=== PATIENT | male | born 1960 | race African-American/Black ===

== ENCOUNTER 2016-09-05 11:41 | Inpatient (IN) | payer OTHER ==
[2016-09-05 12:19] VITALS: BMI 31.3
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
[2016-09-05] MEDS ORDERED: MAG HYDROX/AL HYDROX/SIMETH 30 ML UNIT-DOSE CUP PO PRN (15:39)
[2016-09-05] MEDS ORDERED: MAGNESIUM CITRATE 300 ML BOTTLE PO PRN (15:39)
[2016-09-05] MEDS ORDERED: LOPERAMIDE HCL 2 MG CAPSULE PO PRN (15:39)
[2016-09-05] MEDS ORDERED: hydrOXYzine PAMOATE 25 MG CAPSULE (FP) PO PRN (15:39)
[2016-09-05] MEDS ORDERED: MENTHOL/PHENOL 1 EACH UD MM PRN (15:39)
[2016-09-05] MEDS ORDERED: ACETAMINOPHEN 325 MG TABLET (FP) PO PRN (15:39)
[2016-09-05] MEDS ORDERED: guaiFENesin/D-METHORPHAN HB 10 ML UNIT-DOSE CUPS PO PRN (15:39)
[2016-09-05] MEDS ORDERED: MAGNESIUM HYDROX 2400MG/30ML ORAL SUSPENSION 30 ML CUP PO PRN (15:39)
[2016-09-05] MEDS ORDERED: P-EPHED 60MG/TRIPROLIDI 2.5MG TABLET PO PRN (15:39)
[2016-09-05] MEDS ORDERED: diphenhydrAMINE HCL 50 MG CAPSULE PO PRN (15:39)
[2016-09-05] MEDS ORDERED: IBUPROFEN 400 MG TABLET (FP) PO PRN (15:39)
[2016-09-05] MEDS ORDERED: chlordiazePOXIDE HCL 25 MG CAPSULE PO PRN (15:39)
[2016-09-05] MEDS ORDERED: SUMAtriptan SUCCINATE 50 MG TABLET PO PRN (15:43)
[2016-09-05] MEDS: chlordiazePOXIDE HCL 25 MG CAPSULE PO SCH ×2 (17:56→22:10)
[2016-09-05 20:05] LABS: URINE APPEARANCE CLEAR; URINE BILIRUBIN NEGATIVE (NEGATIVE); URINE BLOOD NEGATIVE (NEGATIVE); URINE COLOR YELLOW; URINE GLUCOSE (UA) NEGATIVE (NEGATIVE); URINE KETONE NEGATIVE (NEGATIVE); URINE LEUK ESTERASE NEGATIVE (NEGATIVE); URINE NITRITE NEGATIVE (NEGATIVE); URINE PROTEIN NEGATIVE (NEGATIVE); URINE UROBILINOGEN 4.0 E.U/dl E.U./dl (0.2-1.0)
[2016-09-05] MEDS: THIAMINE HCL 100 MG TABLET (FP) PO SCH (22:10)
[2016-09-06] MEDS: chlordiazePOXIDE HCL 25 MG CAPSULE PO SCH ×4 (04:40→22:12)
--- NOTE | 2016-09-06 09:21 | PN ---
S CIWA - CIWA Score Nausea/Vomitin Muscle Tremors: 3 Anxiety: 3 Agitation: 2 Paroxysmal Sweats: 1-Minimal Palms Moist Orientation: 0-Oriented Tacttile Disturbances: 1-Very Mild Itch/Numbness Auditory Disturbances: 1-Very Mild Visual Disturbances: 1-Very Mild Sensitivity Headache: 2-Mild CIWA-Ar Total Score: 17 BHS Progress Note (SOAP) Subjective: ALERT,IRRITABLE,ANXIOUS,INTERRUPTED SLEEP,TREMOR Objective: 09/06/16 09:18 Vital Signs Temperature 97.5 F L 09/06/16 05:59 Pulse Rate 55 L 09/06/16 05:59 Respiratory Rate 16 09/06/16 05:59 Blood Pressure 99/60 09/06/16 05:59 O2 Sat by Pulse Oximetry (%) EKG SINUS BRADYCARDIA 50/MIN,INVERTE T IN 3,AVF,V2 TO V6 NO CHEST PAIN,NO SOB,NO DIZZINESS 09/06/16 09:20 Laboratory Last Values Urine Color Yellow 09/05/16 19:30 Urine Appearance Clear 09/05/16 19:30 Urine pH 6.0 (5.0-8.0) 09/05/16 19:30 Ur Specific [place] 1.030 (1.001-1.035) 09/05/16 19:30 Urine Protein Negative (NEGATIVE) 09/05/16 19:30 Urine Glucose (UA) Negative (NEGATIVE) 09/05/16 19:30 Urine Ketones Negative (NEGATIVE) 09/05/16 19:30 Urine Blood Negative (NEGATIVE) 09/05/16 19:30 Urine Nitrite Negative (NEGATIVE) 09/05/16 19:30 Urine Bilirubin Negative (NEGATIVE) 09/05/16 19:30 Urine Urobilinogen 4.0 e.u/dl E.U./dl (0.2-1.0) 09/05/16 19:30 Ur Leukocyte Esterase Negative (NEGATIVE) 09/05/16 19:30 LABS PENDING Assessment: 09/06/16 09:20 WITHDRAWAL SYMPTOM Plan: CONTINUE DETOX
[2016-09-06] MEDS: PRENATAL VITAMINS W/ FOLIC ACID TABLET (FP) PO SCH (10:14)
--- NOTE | 2016-09-06 11:27 | EKG ---
Test Reason : Blood Pressure : / mmHG Vent. Rate : 048 BPM Atrial Rate : 048 BPM P-R Int : 172 ms QRS Dur : 094 ms QT Int : 460 ms P-R-T Axes : 058 -09 -32 degrees QTc Int : 410 ms SINUS BRADYCARDIA SEPTAL INFARCT , AGE UNDETERMINED T WAVE ABNORMALITY, CONSIDER ANTEROLATERAL ISCHEMIA ABNORMAL ECG NO PREVIOUS ECGS AVAILABLE Confirmed by DENIS MCBRIDE MD ([id number]) on 09/06/2016 11:26:53 AM Referred By: Confirmed By:DENIS MCBRIDE MD
[2016-09-06 11:30] LABS: MCH 26.3 pg (25.7-33.7); MCHC 32.1 g/dl (32.0-35.9); RDW 14.2 % (11.9-15.9); WHITE BLOOD COUNT 6.8 K/mm3 (4.0-10.0)
[2016-09-06 11:51] LABS: ALBUMIN 3.6 g/dl (3.4-5.0); ALK PHOS 115 U/L (45-117); ANION GAP 8 (8-16); BILIRUBIN,TOTAL 0.2 mg/dL (0.2-1.0); CALCIUM 8.4 mg/dL (8.5-10.1); CO2 29 mmol/L (21-32); COCKROFT - GAULT 102.6; CREATININE 1.1 mg/dL (0.7-1.3); GLUCOSE,RANDOM 60 mg/dL (74-106); SGOT/AST 10 U/L (15-37); SGPT/ALT 15 U/L (12-78); TOT PROT 7.5 g/dl (6.4-8.2)
[2016-09-06 11:54] LABS: PLATELET COMMENT2 NO CLOTTING DETECTED; PLATELET ESTIMATE ADEQUATE (NORMAL)
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
[2016-09-06] MEDS: ARIPiprazole 10 MG TABLET PO SCH (22:11)
[2016-09-06] MEDS: DIVALPROEX SODIUM 250 MG TABLET E.C. (FP) PO SCH (22:12)
[2016-09-06] MEDS: THIAMINE HCL 100 MG TABLET (FP) PO SCH (22:12)
[2016-09-06] MEDS: ZOLPIDEM TARTRATE 10 MG TABLET (PARK CARE ONLY) PO PRN (22:12)
[2016-09-07] MEDS: chlordiazePOXIDE HCL 25 MG CAPSULE PO SCH ×2 (05:24→10:32)
[2016-09-07] MEDS: PRENATAL VITAMINS W/ FOLIC ACID TABLET (FP) PO SCH (10:32)
[2016-09-07] MEDS: ESCITALOPRAM OXALATE 10 MG TABLET (FP) PO SCH (10:32)
[2016-09-07] MEDS: DIVALPROEX SODIUM 250 MG TABLET E.C. (FP) PO SCH ×2 (10:32→22:05)
--- NOTE | 2016-09-07 14:01 | PN ---
[facility] CIWA - CIWA Score Nausea/Vomitin-Mild Nausea/No Vomiting Muscle Tremors: 4-Moderate,w/Arms Extend Anxiety: 2 Agitation: 2 Paroxysmal Sweats: 1-Minimal Palms Moist Orientation: 1-Uncertain about Date Tacttile Disturbances: 0-None Auditory Disturbances: 1-Very Mild Visual Disturbances: 2-Mild Sensitivity Headache: 3-Moderate CIWA-Ar Total Score: 17 S Progress Note (SOAP) Subjective: Interrupted Sleep, Tremors, Body Aches, H/A. Objective: PT. A & O X 2 (DISORIENTED ABOUT DAY / DATE). 09/07/16 13:59 Vital Signs Temperature 97.5 F L 09/07/16 10:16 Pulse Rate 61 09/07/16 10:16 Respiratory Rate 18 09/07/16 10:16 Blood Pressure 135/83 09/07/16 10:16 O2 Sat by Pulse Oximetry (%) Laboratory Last Values WBC 6.8 K/mm3 (4.0-10.0) 09/06/16 06:00 RBC 4.94 M/mm3 (4.00-5.60) 09/06/16 06:00 Hgb 13.0 GM/dL (11.7-16.9) 09/06/16 06:00 Hct 40.5 % (35.4-49) 09/06/16 06:00 MCV 82.0 fl (80-96) 09/06/16 06:00 MCHC 32.1 g/dl (32.0-35.9) 09/06/16 06:00 RDW 14.2 % (11.9-15.9) 09/06/16 06:00 Plt Count No Result Required. 09/06/16 06:00 MPV 9.0 fl (7.5-11.1) 09/06/16 06:00 Platelet Estimate Adequate (NORMAL) 09/06/16 06:00 Platelet Comment Marked plt clumping 09/06/16 06:00 Platelet Comment No clotting detected 09/06/16 06:00 Sodium 140 mmol/L (136-145) 09/06/16 06:00 Potassium 4.4 mmol/L (3.5-5.1) 09/06/16 06:00 Chloride 103 mmol/L (98-107) 09/06/16 06:00 Carbon Dioxide 29 mmol/L (21-32) 09/06/16 06:00 Anion Gap 8 (8-16) 09/06/16 06:00 BUN 15 mg/dL (7-18) D 09/06/16 06:00 Creatinine 1.1 mg/dL (0.7-1.3) 09/06/16 06:00 Creat Clearance w eGFR > 60 (>60) 09/06/16 06:00 Random Glucose 60 mg/dL (74-106) L D 09/06/16 06:00 Calcium 8.4 mg/dL (8.5-10.1) L 09/06/16 06:00 Total Bilirubin 0.2 mg/dL (0.2-1.0) 09/06/16 06:00 AST 10 U/L (15-37) L D 09/06/16 06:00 ALT 15 U/L (12-78) 09/06/16 06:00 Alkaline Phosphatase 115 U/L (45-117) D 09/06/16 06:00 Total Protein 7.5 g/dl (6.4-8.2) D 09/06/16 06:00 Albumin 3.6 g/dl (3.4-5.0) 09/06/16 06:00 Urine Color Yellow 09/05/16 19:30 Urine Appearance Clear 09/05/16 19:30 Urine pH 6.0 (5.0-8.0) 09/05/16 19:30 Ur Specific [place] 1.030 (1.001-1.035) 09/05/16 19:30 Urine Protein Negative (NEGATIVE) 09/05/16 19:30 Urine Glucose (UA) Negative (NEGATIVE) 09/05/16 19:30 Urine Ketones Negative (NEGATIVE) 09/05/16 19:30 Urine Blood Negative (NEGATIVE) 09/05/16 19:30 Urine Nitrite Negative (NEGATIVE) 09/05/16 19:30 Urine Bilirubin Negative (NEGATIVE) 09/05/16 19:30 Urine Urobilinogen 4.0 e.u/dl E.U./dl (0.2-1.0) 09/05/16 19:30 Ur Leukocyte Esterase Negative (NEGATIVE) 09/05/16 19:30 RPR Titer Nonreactive (NONREACTIVE) 09/06/16 06:00 LABS NOTED. Assessment: 09/07/16 14:00 WITHDRAWAL SYMPTOMS. Plan: CONTINUE DETOX. ADVISED PATIENT TO FOLLOW-UP WITH TRACK GRINDER OPERATOR / REHAB MEDICAL PROVIDER AFTER DISCHARGE FROM DETOX FOR GENERAL MEDICAL ASSESSMENT AND FOR ABNORMAL ADMISSION LAB VALUES.
[2016-09-07] MEDS: chlordiazePOXIDE 5 MG CAPSULE PO SCH ×2 (17:29→22:05)
[2016-09-07] MEDS: ZOLPIDEM TARTRATE 10 MG TABLET (PARK CARE ONLY) PO PRN (22:05)
[2016-09-07] MEDS: THIAMINE HCL 100 MG TABLET (FP) PO SCH (22:05)
[2016-09-07] MEDS: ARIPiprazole 10 MG TABLET PO SCH (22:05)
[2016-09-08] MEDS: chlordiazePOXIDE 5 MG CAPSULE PO SCH ×2 (05:23→10:08)
[2016-09-08] MEDS: DIVALPROEX SODIUM 250 MG TABLET E.C. (FP) PO SCH ×2 (10:08→22:01)
[2016-09-08] MEDS: PRENATAL VITAMINS W/ FOLIC ACID TABLET (FP) PO SCH (10:08)
[2016-09-08] MEDS: ESCITALOPRAM OXALATE 10 MG TABLET (FP) PO SCH (10:08)
--- NOTE | 2016-09-08 13:43 | PN ---
S Progress Note (SOAP) Subjective: Anxiety,tremors,sweating,interrupted sleep Objective: 09/08/16 13:42 Vital Signs - 8 hr 09/08/16 09/08/16 06:00 09:51 Temperature 97.9 F 97.9 F Pulse Rate 60 71 Respiratory 18 16 Rate Blood Pressure 119/73 130/84 Laboratory Last Values WBC 6.8 K/mm3 (4.0-10.0) 09/06/16 06:00 RBC 4.94 M/mm3 (4.00-5.60) 09/06/16 06:00 Hgb 13.0 GM/dL (11.7-16.9) 09/06/16 06:00 Hct 40.5 % (35.4-49) 09/06/16 06:00 MCV 82.0 fl (80-96) 09/06/16 06:00 MCHC 32.1 g/dl (32.0-35.9) 09/06/16 06:00 RDW 14.2 % (11.9-15.9) 09/06/16 06:00 Plt Count No Result Required. 09/06/16 06:00 MPV 9.0 fl (7.5-11.1) 09/06/16 06:00 Platelet Estimate Adequate (NORMAL) 09/06/16 06:00 Platelet Comment Marked plt clumping 09/06/16 06:00 Platelet Comment No clotting detected 09/06/16 06:00 Sodium 140 mmol/L (136-145) 09/06/16 06:00 Potassium 4.4 mmol/L (3.5-5.1) 09/06/16 06:00 Chloride 103 mmol/L (98-107) 09/06/16 06:00 Carbon Dioxide 29 mmol/L (21-32) 09/06/16 06:00 Anion Gap 8 (8-16) 09/06/16 06:00 BUN 15 mg/dL (7-18) D 09/06/16 06:00 Creatinine 1.1 mg/dL (0.7-1.3) 09/06/16 06:00 Creat Clearance w eGFR > 60 (>60) 09/06/16 06:00 Random Glucose 60 mg/dL (74-106) L D 09/06/16 06:00 Calcium 8.4 mg/dL (8.5-10.1) L 09/06/16 06:00 Total Bilirubin 0.2 mg/dL (0.2-1.0) 09/06/16 06:00 AST 10 U/L (15-37) L D 09/06/16 06:00 ALT 15 U/L (12-78) 09/06/16 06:00 Alkaline Phosphatase 115 U/L (45-117) D 09/06/16 06:00 Total Protein 7.5 g/dl (6.4-8.2) D 09/06/16 06:00 Albumin 3.6 g/dl (3.4-5.0) 09/06/16 06:00 Urine Color Yellow 09/05/16 19:30 Urine Appearance Clear 09/05/16 19:30 Urine pH 6.0 (5.0-8.0) 09/05/16 19:30 Ur Specific [place] 1.030 (1.001-1.035) 09/05/16 19:30 Urine Protein Negative (NEGATIVE) 09/05/16 19:30 Urine Glucose (UA) Negative (NEGATIVE) 09/05/16 19:30 Urine Ketones Negative (NEGATIVE) 09/05/16 19:30 Urine Blood Negative (NEGATIVE) 09/05/16 19:30 Urine Nitrite Negative (NEGATIVE) 09/05/16 19:30 Urine Bilirubin Negative (NEGATIVE) 09/05/16 19:30 Urine Urobilinogen 4.0 e.u/dl E.U./dl (0.2-1.0) 09/05/16 19:30 Ur Leukocyte Esterase Negative (NEGATIVE) 09/05/16 19:30 Valproic Acid 25.417 ug/ml (50-100) L 09/07/16 08:20 RPR Titer Nonreactive (NONREACTIVE) 09/06/16 06:00 labs noted Assessment: 09/08/16 13:43 Withdrawal sx. Plan: Continue detox
[2016-09-08] MEDS: chlordiazePOXIDE HCL 10 MG CAPSULE PO SCH ×2 (17:49→22:01)
[2016-09-08] MEDS ORDERED: ARIPiprazole 5 MG TABLET (FP) ONE (21:12)
[2016-09-08] MEDS: THIAMINE HCL 100 MG TABLET (FP) PO SCH (22:01)
[2016-09-08] MEDS: ARIPiprazole 10 MG TABLET PO SCH (22:01)
[2016-09-09] MEDS: chlordiazePOXIDE HCL 10 MG CAPSULE PO SCH (05:39)
[2016-09-09 09:10] VITALS: BP 140/77; PULSE 67; TEMP 98.5
--- NOTE | 2016-09-09 09:32 | DS ---
[facility] Detox Discharge Summary Admission Date: 09/05/16 Discharge Date: 09/09/16 - History Present History: Alcohol Dependence, Cocaine Dependence, Pcp Dependence - Physical Exam Results Vital Signs: Vital Signs Temperature 98.5 F 09/09/16 09:09 Pulse Rate 67 09/09/16 09:09 Respiratory Rate 16 09/09/16 09:09 Blood Pressure 140/77 09/09/16 09:09 O2 Sat by Pulse Oximetry (%) - Treatment Hospital Course: Detox Protocol Followed, Detoxed Safely, Responded well, Discharged Condition Good - Medication Discharge Medications: Ambulatory Orders Lamotrigine [Lamotrigine -] 150 mg PO BID #60 tablet 04/20/15 Sumatriptan Succinate [Imitrex -] 50 mg PO BID PRN 04/20/15 Aripiprazole [Abilify -] 30 mg PO HS #30 tablet 09/22/15 - Diagnosis (1) Alcohol dependence with uncomplicated withdrawal Current Visit: Yes Status: Chronic (2) Bipolar disorder Current Visit: Yes Status: Chronic Qualifiers: Current episode severity: unspecified (3) Cocaine dependence with withdrawal Current Visit: Yes Status: Chronic (4) H/O cluster headache Current Visit: Yes Status: Chronic - AMA Did Patient Leave Against Medical Advice: No
== END 2016-09-09 09:30 | disposition home or self-care (01) | DRG 897 ==
LOC: YASAS 11:41 → Y6N 15:31
PROVIDERS: ADMIT Internal Medicine Addiction Medicine; ATTEND Internal Medicine Addiction Medicine
PROC: HZ2ZZZZ Detoxification Services for Substance Abuse Treatment (ICD-10-PCS; principal; 2016-09-05)
DX: F10.230 Alcohol dependence with withdrawal, uncomplicated (principal); F14.20 Cocaine dependence, uncomplicated; F16.10 Hallucinogen abuse, uncomplicated; F19.24 Other psychoactive substance dependence with psychoactive substance-induced mood disorder; F31.9 Bipolar disorder, unspecified; M13.862 Other specified arthritis, left knee; R00.1 Bradycardia, unspecified; Z87.438 Personal history of other diseases of male genital organs; Z86.69 Personal history of other diseases of the nervous system and sense organs; Z91.5 Personal history of self-harm
CPT/HCPCS: 36415; 80053; 80164; 81003; 85027; 86593; 93005; 93010

== ENCOUNTER 2016-11-01 12:38 | Inpatient (IN) | payer OTHER ==
[2016-11-01 14:33] VITALS: BMI 30.4
[2016-11-01] MEDS ORDERED: hydrOXYzine PAMOATE 50 MG CAPSULE (FP) PO PRN (18:38)
[2016-11-01] MEDS ORDERED: chlordiazePOXIDE HCL 25 MG CAPSULE PO PRN (18:38)
[2016-11-01] MEDS ORDERED: MAG HYDROX/AL HYDROX/SIMETH 30 ML UNIT-DOSE CUP PO PRN (18:38)
[2016-11-01] MEDS ORDERED: ACETAMINOPHEN 325 MG TABLET (FP) PO PRN (18:38)
[2016-11-01] MEDS ORDERED: MENTHOL/PHENOL 1 EACH UD MM PRN (18:38)
[2016-11-01] MEDS ORDERED: MAGNESIUM CITRATE 300 ML BOTTLE PO PRN (18:38)
[2016-11-01] MEDS ORDERED: diphenhydrAMINE HCL 50 MG CAPSULE PO PRN (18:38)
[2016-11-01] MEDS ORDERED: IBUPROFEN 400 MG TABLET (FP) PO PRN (18:38)
[2016-11-01] MEDS ORDERED: MAGNESIUM HYDROX 2400MG/30ML ORAL SUSPENSION 30 ML CUP PO PRN (18:38)
[2016-11-01] MEDS ORDERED: P-EPHED 60MG/TRIPROLIDI 2.5MG TABLET PO PRN (18:38)
[2016-11-01] MEDS ORDERED: guaiFENesin/D-METHORPHAN HB 10 ML UNIT-DOSE CUPS PO PRN (18:38)
[2016-11-01] MEDS ORDERED: LOPERAMIDE HCL 2 MG CAPSULE PO PRN (18:38)
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
[2016-11-01] MEDS ORDERED: chlordiazePOXIDE HCL 25 MG CAPSULE PO ONE (19:15)
[2016-11-01] MEDS: chlordiazePOXIDE HCL 25 MG CAPSULE PO SCH (22:27)
[2016-11-01] MEDS: THIAMINE HCL 100 MG TABLET (FP) PO SCH (22:27)
[2016-11-01 23:54] LABS: URINE APPEARANCE SLCLOUDY; URINE BILIRUBIN NEGATIVE (NEGATIVE); URINE BLOOD NEGATIVE (NEGATIVE); URINE COLOR YELLOW; URINE GLUCOSE (UA) NEGATIVE (NEGATIVE); URINE KETONE NEGATIVE (NEGATIVE); URINE LEUK ESTERASE NEGATIVE (NEGATIVE); URINE NITRITE NEGATIVE (NEGATIVE); URINE PROTEIN NEGATIVE (NEGATIVE); URINE UROBILINOGEN NEGATIVE E.U./dl (0.2-1.0)
[2016-11-02] MEDS: chlordiazePOXIDE HCL 25 MG CAPSULE PO SCH ×4 (05:27→22:21)
--- NOTE | 2016-11-02 10:00 | EKG ---
Test Reason : Blood Pressure : / mmHG Vent. Rate : 050 BPM Atrial Rate : 050 BPM P-R Int : 140 ms QRS Dur : 088 ms QT Int : 466 ms P-R-T Axes : 073 -09 -35 degrees QTc Int : 424 ms SINUS BRADYCARDIA CANNOT RULE OUT ANTEROSEPTAL INFARCT (CITED ON OR BEFORE 05-SEP-2016) NONSPECIFIC T WAVE ABNORMALITY ABNORMAL ECG Confirmed by DENIS MCBRIDE MD ([id number]) on 11/02/2016 10:00:25 AM Referred By: Confirmed By:DENIS MCBRIDE MD
[2016-11-02 10:24] LABS: MCH 26.3 pg (25.7-33.7); MCHC 32.2 g/dl (32.0-35.9); MEAN CELL VOLUME 81.6 fl (80-96); MEAN PLT VOLUME 9.1 fl (7.5-11.1); RDW 14.9 % (11.9-15.9); WHITE BLOOD COUNT 5.7 K/mm3 (4.0-10.0)
[2016-11-02] MEDS: PRENATAL VITAMINS W/ FOLIC ACID TABLET (FP) PO SCH (10:26)
[2016-11-02 10:54] LABS: ALBUMIN 3.8 g/dl (3.4-5.0); ALK PHOS 118 U/L (45-117); ANION GAP 10 (8-16); BILIRUBIN,TOTAL 0.4 mg/dL (0.2-1.0); CALCIUM 8.4 mg/dL (8.5-10.1); CO2 27 mmol/L (21-32); GLUCOSE,RANDOM 76 mg/dL (74-106); SGOT/AST 8 U/L (15-37); SGPT/ALT 13 U/L (12-78); TOT PROT 7.6 g/dl (6.4-8.2)
[2016-11-02 11:34] LABS: PLATELET ESTIMATE ADEQUATE (NORMAL)
--- NOTE | 2016-11-02 12:16 | CONSULT ---
[facility] Psychiatric Consult - Data Date of interview: 11/02/16 Admission source: [facility] Identifying data: Readmission to [facility] for this 55 y/o AA male seeking detox treatment on for alcohol and cocaine (crack) dependence.Patient is ,a father of four,reportedly domiciled,currently unemployed and supported on unemployment benefits. Substance Abuse History: - Smoking Cessation. Smoking history: Former smoker. Have you smoked in the past 12 months: No. Aproximately how many cigarettes per day: 0. If you are a former smoker, when did you quit?: 2010. Cigars Per Day: 0. Hx Chewing Tobacco Use: No. Initiated information on smoking cessation : No. - Substance & Tx. History. Hx Alcohol Use: Yes. Hx Substance Use: Yes. Substance Use Type: Alcohol, Cocaine. Hx Substance Use Treatment: Yes (09/05- [facility]). - Substances Abused. Alcohol. Route: Oral. Frequency: Daily. Amount used: liquor- 2 pints, beer- 4- 40oz. Age of first use: 18. Date of Last Use: 11/01/16. Cocaine. Route: Smoking. Frequency: Daily. Amount used: 10 bags. Age of first use: 23. Date of Last Use: 10/31/16. Confirmed by patient. Medical History: History of cluster headaches,arthritis of left knee,past treatment for syphilis (1980),bilateral inguinal herniorraphy (1989) and orthopedic surgery for torn meniscus of left knee (1989). Psychiatric History: Known history of psychiatric hospitalizations ([facility] and [facility]) .Diagnosed with Bipolar Disorder.Mr Saldana is still followed at the [facility] mental health program in the [place].Prescribed abilify + lamictal + depakote + lexapro + ambien.No recollection of doses.Patient indicates that he last took his medications about 4-5 weeks ago.He admits to a history of suicide attempts (wrist-cutting 10 years ago/overdose with medications at the of mother 15 years ago). Physical/Sexual Abuse/Trauma History: Patient denies history of abuse. Additional Comment: Urine Drug Screen Results: RONNIE-Cocaine.Noted. Mental Status Exam - Mental Status Exam Alert and Oriented to: Time, Place, Person Cognitive Function: Good Patient Appearance: Well Groomed Mood: Nervous, Anxious Affect: Mood Congruent Patient Behavior: Appropriate, Cooperative Speech Pattern: Clear, Appropriate Voice Loudness: Normal Thought Process: Goal Oriented Thought Disorder: Not Present Hallucinations: Denies Suicidal Ideation: Denies Homicidal Ideation: Denies Insight/Judgement: Poor Sleep: Poorly, Difficulty falling asleep Appetite: Good Muscle strength/Tone: Normal Gait/Station: Normal Psychiatric Findings - Problem List ([place] 1, 2,3) (1) Alcohol dependence with uncomplicated withdrawal Current Visit: Yes Status: Acute (2) Cocaine dependence with withdrawal Current Visit: Yes Status: Chronic (3) Substance induced mood disorder Current Visit: Yes Status: Acute (4) Bipolar disorder Current Visit: Yes Status: Chronic Qualifiers: Current episode severity: unspecified Comment: History. - Initial Treatment Plan Initial Treatment Plan: Previous records are reviewed.Psychoeducation done in this session.Detoxification in progress.Medications : depakote 250 mg po bid + lexapro 10 mg po daily + abilify 15 mg po hs + ambien 10 mg po hs.Side effects/ benefits of these drugs are discussed with patient.He is made aware,in particular,of risk for liver dyfunction,blood dyscrasias,hair loss,weight gain ( valproate),sexual dysfunction/suicidal ideation (lexapro),cardiac adverse events (abilify) and parasomnias (ambien).No report of history of adverse events from this regime (described as well tolerated/efficacious by the patient) .Mr Saldana is in agreement with this careplan.NO scripts needed at discharge.Pharmacy claims reviewed.Noted refills on 10/15/16 @ [facility] for these medications (reportedly NOT taken by patient according to self-report) .Lamotrigine is withdrawn from this regimen (patient's non adherence for 4-5 weeks).
[2016-11-02] MEDS: AMMONIUM LACTATE 12% LOTION 225 GM BOTTLE TP SCH ×2 (13:05→22:21)
--- NOTE | 2016-11-02 16:04 | PN ---
[facility] CIWA - CIWA Score Nausea/Vomitin-No Nausea/No Vomiting Muscle Tremors: 4-Moderate,w/Arms Extend Anxiety: 3 Agitation: 2 Paroxysmal Sweats: 3 Orientation: 0-Oriented Tacttile Disturbances: 3-Moderate Itch/Numb/Burn Auditory Disturbances: 1-Very Mild Visual Disturbances: 2-Mild Sensitivity Headache: 0-None Present CIWA-Ar Total Score: 18 [facility] Progress Note (SOAP) Subjective: Tremors, Interrupted sleep, Body aches, Sweating. Objective: PT. A & O X 3, OBSERVED AMBULATING ON UNIT. NO ACUTE DISTRESS. 11/02/16 16:02 Vital Signs Temperature 99.3 F 11/02/16 14:06 Pulse Rate 58 L 11/02/16 14:06 Respiratory Rate 18 11/02/16 14:06 Blood Pressure 137/85 11/02/16 14:06 O2 Sat by Pulse Oximetry (%) Laboratory Tests 11/01/16 11/02/16 11/02/16 20:21 06:10 06:10 WBC 5.7 RBC 5.26 Hgb 13.8 Hct 43.0 MCV 81.6 MCHC 32.2 RDW 14.9 Plt Count No Result Required. MPV 9.1 Platelet Estimate Adequate Platelet Comment Slt plt clumping Sodium 139 Potassium 4.5 Chloride 102 Carbon Dioxide 27 Anion Gap 10 BUN 12 Creatinine 1.0 Creat Clearance w eGFR > 60 Random Glucose 76 D Calcium 8.4 L Total Bilirubin 0.4 D AST 8 L ALT 13 Alkaline Phosphatase 118 H Total Protein 7.6 Albumin 3.8 Urine Color Yellow Urine Appearance Slcloudy Urine pH 7.0 Ur Specific [place] 1.020 Urine Protein Negative Urine Glucose (UA) Negative Urine Ketones Negative Urine Blood Negative Urine Nitrite Negative Urine Bilirubin Negative Urine Urobilinogen Negative Ur Leukocyte Esterase Negative Valproic Acid 11/02/16 08:00 WBC RBC Hgb Hct MCV MCHC RDW Plt Count MPV Platelet Estimate Platelet Comment Sodium Potassium Chloride Carbon Dioxide Anion Gap BUN Creatinine Creat Clearance w eGFR Random Glucose Calcium Total Bilirubin AST ALT Alkaline Phosphatase Total Protein Albumin Urine Color Urine Appearance Urine pH Ur Specific [place] Urine Protein Urine Glucose (UA) Urine Ketones Urine Blood Urine Nitrite Urine Bilirubin Urine Urobilinogen Ur Leukocyte Esterase Valproic Acid 5.278 L LABS NOTED. VALPROIC ACID LEVEL FROM 11/02/2016 NOTED. TO BE FOLLOWED-UP BY PSYCH. PSYCHIATRIST DR. VERONICA MD MADE AWARE OF LEVEL. 11/02/16 16:27 11/02/16 16:28 11/02/16 16:29 11/02/16 16:30 Assessment: 11/02/16 16:02 WITHDRAWAL SYMPTOMS. Plan: CONTINUE DETOX.
[2016-11-02] MEDS: ARIPiprazole 15 MG TABLET PO SCH (22:21)
[2016-11-02] MEDS: THIAMINE HCL 100 MG TABLET (FP) PO SCH (22:21)
[2016-11-02] MEDS: DIVALPROEX SODIUM 250 MG TABLET E.C. (FP) PO SCH (22:21)
[2016-11-02] MEDS: ZOLPIDEM TARTRATE 10 MG TABLET (PARK CARE ONLY) PO PRN (22:23)
[2016-11-03] MEDS: chlordiazePOXIDE HCL 25 MG CAPSULE PO SCH ×3 (05:27→17:15)
[2016-11-03] MEDS: ESCITALOPRAM OXALATE 10 MG TABLET (FP) PO SCH (10:14)
[2016-11-03] MEDS: DIVALPROEX SODIUM 250 MG TABLET E.C. (FP) PO SCH ×2 (10:14→22:32)
[2016-11-03] MEDS: PRENATAL VITAMINS W/ FOLIC ACID TABLET (FP) PO SCH (10:15)
[2016-11-03] MEDS: AMMONIUM LACTATE 12% LOTION 225 GM BOTTLE TP SCH ×2 (10:15→22:32)
--- NOTE | 2016-11-03 13:26 | PN ---
[facility] CIWA - CIWA Score Nausea/Vomitin Muscle Tremors: 5 Anxiety: 4-Mod. Anxious/Guarded Agitation: 4-Moderately Restless Paroxysmal Sweats: 1-Minimal Palms Moist Orientation: 0-Oriented Tacttile Disturbances: 1-Very Mild Itch/Numbness Auditory Disturbances: 0-None Visual Disturbances: 0-None Headache: 0-None Present CIWA-Ar Total Score: 18 [facility] Progress Note (SOAP) Subjective: Tremor, sweating, chills, nausea Objective: 11/03/16 13:24 Last Vital Signs Temp Pulse Resp BP Pulse Ox 97.3 F L 74 18 132/95 11/03/16 13:15 11/03/16 13:15 11/03/16 13:15 11/03/16 13:15 Laboratory Tests 11/01/16 11/02/16 11/02/16 20:21 06:10 06:10 WBC 5.7 RBC 5.26 Hgb 13.8 Hct 43.0 MCV 81.6 MCHC 32.2 RDW 14.9 Plt Count No Result Required. MPV 9.1 Platelet Estimate Adequate Platelet Comment Slt plt clumping Sodium 139 Potassium 4.5 Chloride 102 Carbon Dioxide 27 Anion Gap 10 BUN 12 Creatinine 1.0 Creat Clearance w eGFR > 60 Random Glucose 76 D Calcium 8.4 L Total Bilirubin 0.4 D AST 8 L ALT 13 Alkaline Phosphatase 118 H Total Protein 7.6 Albumin 3.8 Urine Color Yellow Urine Appearance Slcloudy Urine pH 7.0 Ur Specific [place] 1.020 Urine Protein Negative Urine Glucose (UA) Negative Urine Ketones Negative Urine Blood Negative Urine Nitrite Negative Urine Bilirubin Negative Urine Urobilinogen Negative Ur Leukocyte Esterase Negative Valproic Acid RPR Titer 11/02/16 11/02/16 06:10 08:00 WBC RBC Hgb Hct MCV MCHC RDW Plt Count MPV Platelet Estimate Platelet Comment Sodium Potassium Chloride Carbon Dioxide Anion Gap BUN Creatinine Creat Clearance w eGFR Random Glucose Calcium Total Bilirubin AST ALT Alkaline Phosphatase Total Protein Albumin Urine Color Urine Appearance Urine pH Ur Specific [place] Urine Protein Urine Glucose (UA) Urine Ketones Urine Blood Urine Nitrite Urine Bilirubin Urine Urobilinogen Ur Leukocyte Esterase Valproic Acid 5.278 L RPR Titer Nonreactive Labs noted Assessment: 11/03/16 13:26 Withdrawal symptoms Plan: Continue detox
[2016-11-03] MEDS: ARIPiprazole 15 MG TABLET PO SCH (22:32)
[2016-11-03] MEDS: ZOLPIDEM TARTRATE 10 MG TABLET (PARK CARE ONLY) PO PRN (22:32)
[2016-11-03] MEDS: chlordiazePOXIDE 5 MG CAPSULE PO SCH (22:32)
[2016-11-03] MEDS: THIAMINE HCL 100 MG TABLET (FP) PO SCH (22:32)
[2016-11-04] MEDS: chlordiazePOXIDE 5 MG CAPSULE PO SCH ×3 (05:40→17:31)
[2016-11-04] MEDS: PRENATAL VITAMINS W/ FOLIC ACID TABLET (FP) PO SCH (10:19)
[2016-11-04] MEDS: DIVALPROEX SODIUM 250 MG TABLET E.C. (FP) PO SCH ×2 (10:19→22:30)
[2016-11-04] MEDS: ESCITALOPRAM OXALATE 10 MG TABLET (FP) PO SCH (10:19)
[2016-11-04] MEDS: AMMONIUM LACTATE 12% LOTION 225 GM BOTTLE TP SCH ×2 (10:20→22:30)
--- NOTE | 2016-11-04 13:43 | PN ---
[facility] Progress Note (SOAP) Subjective: Sweating,interrupted sleep,restless Objective: 11/04/16 13:41 Vital Signs - 8 hr 11/04/16 11/04/16 06:25 09:47 Temperature 97.9 F 96.5 F L Pulse Rate 71 73 Respiratory 18 18 Rate Blood Pressure 133/82 147/90 Laboratory Tests 11/01/16 11/02/16 11/02/16 20:21 06:10 06:10 WBC 5.7 RBC 5.26 Hgb 13.8 Hct 43.0 MCV 81.6 MCHC 32.2 RDW 14.9 Plt Count No Result Required. MPV 9.1 Platelet Estimate Adequate Platelet Comment Slt plt clumping Sodium 139 Potassium 4.5 Chloride 102 Carbon Dioxide 27 Anion Gap 10 BUN 12 Creatinine 1.0 Creat Clearance w eGFR > 60 Random Glucose 76 D Calcium 8.4 L Total Bilirubin 0.4 D AST 8 L ALT 13 Alkaline Phosphatase 118 H Total Protein 7.6 Albumin 3.8 Urine Color Yellow Urine Appearance Slcloudy Urine pH 7.0 Ur Specific [place] 1.020 Urine Protein Negative Urine Glucose (UA) Negative Urine Ketones Negative Urine Blood Negative Urine Nitrite Negative Urine Bilirubin Negative Urine Urobilinogen Negative Ur Leukocyte Esterase Negative Valproic Acid RPR Titer 11/02/16 11/02/16 06:10 08:00 WBC RBC Hgb Hct MCV MCHC RDW Plt Count MPV Platelet Estimate Platelet Comment Sodium Potassium Chloride Carbon Dioxide Anion Gap BUN Creatinine Creat Clearance w eGFR Random Glucose Calcium Total Bilirubin AST ALT Alkaline Phosphatase Total Protein Albumin Urine Color Urine Appearance Urine pH Ur Specific [place] Urine Protein Urine Glucose (UA) Urine Ketones Urine Blood Urine Nitrite Urine Bilirubin Urine Urobilinogen Ur Leukocyte Esterase Valproic Acid 5.278 L RPR Titer Nonreactive labs noted,valproic level to be f/u by psychiatrist Assessment: 11/04/16 13:42 Withdrawal sx. Plan: Continue detox
[2016-11-04] MEDS: ZOLPIDEM TARTRATE 10 MG TABLET (PARK CARE ONLY) PO PRN (22:00)
[2016-11-04] MEDS: THIAMINE HCL 100 MG TABLET (FP) PO SCH (22:30)
[2016-11-04] MEDS: chlordiazePOXIDE HCL 10 MG CAPSULE PO SCH (22:30)
[2016-11-04] MEDS: ARIPiprazole 15 MG TABLET PO SCH (22:30)
[2016-11-05] MEDS: chlordiazePOXIDE HCL 10 MG CAPSULE PO SCH ×2 (05:13→10:23)
[2016-11-05] MEDS: PRENATAL VITAMINS W/ FOLIC ACID TABLET (FP) PO SCH (10:22)
[2016-11-05] MEDS: ESCITALOPRAM OXALATE 10 MG TABLET (FP) PO SCH (10:23)
[2016-11-05] MEDS: AMMONIUM LACTATE 12% LOTION 225 GM BOTTLE TP SCH ×2 (10:23→21:30)
[2016-11-05] MEDS: DIVALPROEX SODIUM 250 MG TABLET E.C. (FP) PO SCH ×2 (10:23→21:30)
--- NOTE | 2016-11-05 11:20 | DS ---
[facility] Detox Discharge Summary Admission Date: 11/01/16 Discharge Date: 11/05/16 - History Present History: Alcohol Dependence, Cocaine Dependence, Pcp Dependence Pertinent Past History: Cluster Headache - Physical Exam Results Vital Signs: Vital Signs Temperature 97.1 F L 11/05/16 09:21 Pulse Rate 62 11/05/16 09:21 Respiratory Rate 18 11/05/16 09:21 Blood Pressure 143/95 11/05/16 09:21 O2 Sat by Pulse Oximetry (%) Pertinent Admission Physical Exam Findings: Withdrawal sx. Laboratory Last Values WBC 5.7 K/mm3 (4.0-10.0) 11/02/16 06:10 RBC 5.26 M/mm3 (4.00-5.60) 11/02/16 06:10 Hgb 13.8 GM/dL (11.7-16.9) 11/02/16 06:10 Hct 43.0 % (35.4-49) 11/02/16 06:10 MCV 81.6 fl (80-96) 11/02/16 06:10 MCHC 32.2 g/dl (32.0-35.9) 11/02/16 06:10 RDW 14.9 % (11.9-15.9) 11/02/16 06:10 Plt Count No Result Required. 11/02/16 06:10 MPV 9.1 fl (7.5-11.1) 11/02/16 06:10 Platelet Estimate Adequate (NORMAL) 11/02/16 06:10 Platelet Comment Slt plt clumping 11/02/16 06:10 Sodium 139 mmol/L (136-145) 11/02/16 06:10 Potassium 4.5 mmol/L (3.5-5.1) 11/02/16 06:10 Chloride 102 mmol/L (98-107) 11/02/16 06:10 Carbon Dioxide 27 mmol/L (21-32) 11/02/16 06:10 Anion Gap 10 (8-16) 11/02/16 06:10 BUN 12 mg/dL (7-18) 11/02/16 06:10 Creatinine 1.0 mg/dL (0.7-1.3) 11/02/16 06:10 Creat Clearance w eGFR > 60 (>60) 11/02/16 06:10 Random Glucose 76 mg/dL (74-106) D 11/02/16 06:10 Calcium 8.4 mg/dL (8.5-10.1) L 11/02/16 06:10 Total Bilirubin 0.4 mg/dL (0.2-1.0) D 11/02/16 06:10 AST 8 U/L (15-37) L 11/02/16 06:10 ALT 13 U/L (12-78) 11/02/16 06:10 Alkaline Phosphatase 118 U/L (45-117) H 11/02/16 06:10 Total Protein 7.6 g/dl (6.4-8.2) 11/02/16 06:10 Albumin 3.8 g/dl (3.4-5.0) 11/02/16 06:10 Urine Color Yellow 11/01/16 20:21 Urine Appearance Slcloudy 11/01/16 20:21 Urine pH 7.0 (5.0-8.0) 11/01/16 20:21 Ur Specific [place] 1.020 (1.005-1.025) 11/01/16 20:21 Urine Protein Negative (NEGATIVE) 11/01/16 20:21 Urine Glucose (UA) Negative (NEGATIVE) 11/01/16 20:21 Urine Ketones Negative (NEGATIVE) 11/01/16 20:21 Urine Blood Negative (NEGATIVE) 11/01/16 20:21 Urine Nitrite Negative (NEGATIVE) 11/01/16 20:21 Urine Bilirubin Negative (NEGATIVE) 11/01/16 20:21 Urine Urobilinogen Negative E.U./dl (0.2-1.0) 11/01/16 20:21 Ur Leukocyte Esterase Negative (NEGATIVE) 11/01/16 20:21 Valproic Acid 5.278 ug/ml (50-100) L 11/02/16 08:00 RPR Titer Nonreactive (NONREACTIVE) 11/02/16 06:10 labs noted - Treatment Hospital Course: Detox Protocol Followed, Detoxed Safely, Responded well, Discharged Condition Good, Rehab Referral Accepted Patient has Accepted a Rehab Referral to: [facility] - Medication Discharge Medications: Ambulatory Orders Lamotrigine [Lamotrigine -] 150 mg PO BID #60 tablet 04/20/15 Sumatriptan Succinate [Imitrex -] 50 mg PO BID PRN 04/20/15 Aripiprazole [Abilify -] 30 mg PO HS #30 tablet 09/22/15 Sumatriptan Succinate [Imitrex -] 50 mg PO ONCE PRN #6 tablet 09/09/16 Divalproex Sodium [Depakote ER] 500 mg PO BID 11/01/16 Escitalopram Oxalate [Lexapro -] 10 mg PO DAILY 11/01/16 - Diagnosis (1) Alcohol dependence with uncomplicated withdrawal Current Visit: Yes Status: Acute (2) Substance induced mood disorder Current Visit: Yes Status: Acute (3) Cocaine dependence with withdrawal Current Visit: Yes Status: Chronic (4) H/O cluster headache Current Visit: No Status: Chronic (5) Bipolar disorder Current Visit: Yes Status: Chronic Qualifiers: Current episode severity: unspecified - AMA Did Patient Leave Against Medical Advice: No
--- NOTE | 2016-11-05 15:11 | HP ---
Psychiatrist Admission - Data Date of interview: 11/05/16 Admission source: 6N Identifying data: This is the first 5N inpatient rehabilitation admission for this 55 year old AA male, who is , a father of four, domiciled, currently unemployed and supported on unemployment benefits. Medical History: Cluster headaches, arthritis of left knee, past treatment , bilateral inguinal herniorraphy and orthopedic surgery on left knee. Psychiatric History: Patient reports carries a diagnosis of Bipolar Disorder, reports about 4-5 psychiatric hospiltalizations ( [facility]) most recent hospitalization 5 years ago at [facility], states he follows at [facility] in the [place] and under the care , history of suicidal attempts (cut his wrist 10 year ago and OD with pills 15 years ago at the of mother). Currently on Abilify 15 mg po daily , Depakote 250 mg po bid, Lamictal 150 mg po bid, Lexapro 10 mg po daily. Patient was seen by and continued all meds but Lamictal. Patient reports he wants to continue Lamictal as well. Physical/Sexual Abuse/Trauma History: Patient denies history of sexual, physical and verbal abuse. Vital Signs: Vital Signs - 24 hr 11/04/16 11/04/16 11/05/16 17:40 21:54 00:30 Temperature 98.2 F 98.7 F Pulse Rate 76 71 Respiratory 19 18 18 Rate Blood Pressure 120/72 113/69 11/05/16 11/05/16 11/05/16 03:30 06:26 09:21 Temperature 97.3 F L 97.1 F L Pulse Rate 71 62 Respiratory 18 18 18 Rate Blood Pressure 113/79 143/95 11/05/16 12:57 Temperature 98.7 F Pulse Rate 84 Respiratory 18 Rate Blood Pressure 119/84 Allergies/Adverse Reactions: Allergies Allergy/AdvReac Type Severity Reaction Status Date / Time No Known Allergies Allergy Verified 11/05/16 13:13 Date of last physical exam: 11/01/16 Concur with the findings of this exam: Yes - Substance Abuse/Tx History Hx Alcohol Use: Yes (2 pints of liqor, beer 4 o-40 oz) Hx Substance Use: Yes Substance Use Type: Cocaine (daily 10 bags) Hx Substance Use Treatment: Yes - Admission Criteria Previous failed treatment: Yes Poor recovery environment: Yes Comorbidities: Yes Lacks judgement: Yes Mental Status Exam - Mental Status Exam Alert and Oriented to: Time, Place, Person Cognitive Function: Grossly Intact Mood: Anxious Affect: Appropriate, Mood Congruent Patient Behavior: Appropriate, Cooperative Speech Pattern: Clear, Appropriate Voice Loudness: Normal Thought Process: Intact, Goal Oriented Thought Disorder: Not Present Hallucinations: Denies Suicidal Ideation: Denies Homicidal Ideation: Denies Insight/Judgement: Fair Sleep: Poorly, Difficulty falling asleep Appetite: Good Muscle strength/Tone: Normal Gait/Station: Normal Psychiatric Findings - Problem List ([place] 1, 2,3) (1) Bipolar disorder Current Visit: Yes Status: Chronic Qualifiers: Current episode severity: unspecified Comment: History. (2) Alcohol dependence Current Visit: Yes Status: Acute (3) Cocaine dependence Current Visit: Yes Status: Acute - Initial Treatment Plan Initial Treatment Plan: Will continuew his current medications, add Belsomra, side-efefcts each of current medications discussed, monitor progress as needed.
[2016-11-05] MEDS: THIAMINE HCL 100 MG TABLET (FP) PO SCH (21:30)
[2016-11-05] MEDS: ARIPiprazole 15 MG TABLET PO SCH (21:30)
[2016-11-05] MEDS: lamoTRIgine 100 MG TABLET (FP) PO SCH (21:31)
[2016-11-05] MEDS: SUVOREXANT 10 MG TABLET PO PRN (21:32)
[2016-11-06] MEDS: DIVALPROEX SODIUM 250 MG TABLET E.C. (FP) PO SCH ×2 (09:58→21:19)
[2016-11-06] MEDS: ESCITALOPRAM OXALATE 10 MG TABLET (FP) PO SCH (09:58)
[2016-11-06] MEDS: PRENATAL VITAMINS W/ FOLIC ACID TABLET (FP) PO SCH (09:58)
[2016-11-06] MEDS: lamoTRIgine 100 MG TABLET (FP) PO SCH ×2 (09:58→21:19)
[2016-11-06] MEDS: AMMONIUM LACTATE 12% LOTION 225 GM BOTTLE TP SCH ×2 (10:00→21:19)
[2016-11-06] MEDS: ARIPiprazole 15 MG TABLET PO SCH (21:19)
[2016-11-06] MEDS: THIAMINE HCL 100 MG TABLET (FP) PO SCH (21:19)
[2016-11-06] MEDS: SUVOREXANT 10 MG TABLET PO PRN (21:20)
[2016-11-07 06:47] VITALS: BP 127/82; PULSE 59; TEMP 97.7
[2016-11-07] MEDS: PRENATAL VITAMINS W/ FOLIC ACID TABLET (FP) PO SCH (10:00)
[2016-11-07] MEDS: ESCITALOPRAM OXALATE 10 MG TABLET (FP) PO SCH (10:00)
[2016-11-07] MEDS: lamoTRIgine 100 MG TABLET (FP) PO SCH (10:00)
[2016-11-07] MEDS: AMMONIUM LACTATE 12% LOTION 225 GM BOTTLE TP SCH (10:00)
[2016-11-07] MEDS: DIVALPROEX SODIUM 250 MG TABLET E.C. (FP) PO SCH (10:00)
--- NOTE | 2016-11-07 13:18 | PN ---
Psychiatric Progress Note Vital Signs: Vital Signs Period Temp Pulse Resp BP Sys/[place] Pulse Ox Last 24 Hr 97.7 F 59 16-18 127/82 Date of Session: 11/07/16 Chief Complaint:: discharge visit HPI: Patient is addressing cocaine, alcohol dependence comorbid Bipolar disorder. ROS: Cluster headaches, arthritis of left knee, past treatment ,bilateral inguinal herniorraphy and orthopedic surgery on left knee. Current Side Effect: No Lab tests ordered: No Lab tests reviewed: Yes Provider note:: Patient requested early discharge due to family emergency, patient reported his sister with stage 4 pancreatic cancer was transferred from [facility] to hospice and she wants to see him. Patient was encouraged to continue his abstinence and take his psychotropics as directed. Scripts transferred to his pharmacy. Emotonal supports provided. Patient is stable for discharge. Total face to face time:: 30 Mental Status Exam - Mental Status Exam Alert and Oriented to: Time, Place, Person Cognitive Function: Grossly Intact Patient Appearance: Well Groomed Affect: Appropriate, Mood Congruent Patient Behavior: Appropriate, Cooperative Speech Pattern: Clear, Appropriate Voice Loudness: Normal Thought Process: Intact, Goal Oriented Thought Disorder: Not Present Hallucinations: None, Denies Suicidal Ideation: None, Denies Homicidal Ideation: None Insight/Judgement: Good Sleep: Well Appetite: Good Muscle strength/Tone: Normal Gait/Station: Normal Psychiatric Treatment Plan - Problem List (1) Bipolar disorder Current Visit: Yes Qualifiers: Current episode severity: unspecified Comment: History. (2) Alcohol dependence Current Visit: Yes (3) Cocaine dependence Current Visit: Yes
== END 2016-11-07 12:10 | disposition home or self-care (01) | DRG 895 ==
LOC: YASAS 12:38 → Y3N 18:13 → Y5N 11-05 12:21
PROVIDERS: ADMIT Internal Medicine; ATTEND Psychiatry & Neurology Psychiatry
PROC: HZ2ZZZZ Detoxification Services for Substance Abuse Treatment (ICD-10-PCS; principal; 2016-11-01)
PROC: HZ42ZZZ Group Counseling for Substance Abuse Treatment, Cognitive-Behavioral (ICD-10-PCS; 2016-11-05)
DX: F10.230 Alcohol dependence with withdrawal, uncomplicated (principal); F14.20 Cocaine dependence, uncomplicated; F31.81 Bipolar II disorder; F19.24 Other psychoactive substance dependence with psychoactive substance-induced mood disorder; Z87.438 Personal history of other diseases of male genital organs; Z91.5 Personal history of self-harm; Z87.891 Personal history of nicotine dependence; E66.9 Obesity, unspecified; Z68.31 Body mass index [BMI] 31.0-31.9, adult
CPT/HCPCS: 36415; 80053; 80164; 81003; 85027; 86593; 93005; 93010

== ENCOUNTER 2017-07-07 10:59 | Inpatient (IN) | payer OTHER ==
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
[2017-07-07 12:11] VITALS: BMI 29.5
[2017-07-07] MEDS ORDERED: MAG HYDROX/AL HYDROX/SIMETH 30 ML UNIT-DOSE CUP PO PRN (12:28)
[2017-07-07] MEDS ORDERED: MAGNESIUM HYDROX 2400MG/30ML ORAL SUSPENSION 30 ML CUP PO PRN (12:28)
[2017-07-07] MEDS ORDERED: chlordiazePOXIDE HCL 25 MG CAPSULE PO PRN (12:28)
[2017-07-07] MEDS ORDERED: IBUPROFEN 400 MG TABLET (FP) PO PRN (12:28)
[2017-07-07] MEDS ORDERED: guaiFENesin/D-METHORPHAN HB 10 ML UNIT-DOSE CUPS PO PRN (12:28)
[2017-07-07] MEDS ORDERED: LOPERAMIDE HCL 2 MG CAPSULE PO PRN (12:28)
[2017-07-07] MEDS ORDERED: P-EPHED 60MG/TRIPROLIDI 2.5MG TABLET PO PRN (12:28)
[2017-07-07] MEDS ORDERED: MENTHOL/PHENOL 1 EACH UD MM PRN (12:28)
[2017-07-07] MEDS ORDERED: MAGNESIUM CITRATE 300 ML BOTTLE PO PRN (12:28)
[2017-07-07] MEDS ORDERED: chlordiazePOXIDE HCL 25 MG CAPSULE PO ONE (14:15)
[2017-07-07 17:16] LABS: URINE APPEARANCE TURBID; URINE BILIRUBIN NEGATIVE (NEGATIVE); URINE BLOOD NEGATIVE (NEGATIVE); URINE COLOR AMBER; URINE GLUCOSE (UA) NEGATIVE (NEGATIVE); URINE KETONE NEGATIVE (NEGATIVE); URINE LEUK ESTERASE NEGATIVE (NEGATIVE); URINE NITRITE NEGATIVE (NEGATIVE)
[2017-07-07 17:18] LABS: URINE PROTEIN 1+ (NEGATIVE)
[2017-07-07 17:24] LABS: URINE BACTERIA MODERATE /hpf (NONE SEEN); URINE MUCUS FEW
[2017-07-07] MEDS: chlordiazePOXIDE HCL 25 MG CAPSULE PO SCH ×2 (17:28→22:05)
[2017-07-07] MEDS: THIAMINE HCL 100 MG TABLET (FP) PO SCH (22:05)
[2017-07-07] MEDS: hydrOXYzine PAMOATE 25 MG CAPSULE (FP) PO PRN (22:07)
[2017-07-08] MEDS: chlordiazePOXIDE HCL 25 MG CAPSULE PO SCH ×4 (05:51→22:10)
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
[2017-07-08] MEDS: PRENATAL VITAMINS W/ FOLIC ACID TABLET (FP) PO SCH (10:16)
--- NOTE | 2017-07-08 10:41 | PN ---
[facility] CIWA - CIWA Score Nausea/Vomitin-No Nausea/No Vomiting Muscle Tremors: 3 Anxiety: 4-Mod. Anxious/Guarded Agitation: 3 Paroxysmal Sweats: 3 Orientation: 0-Oriented Tacttile Disturbances: 3-Moderate Itch/Numb/Burn Auditory Disturbances: 0-None Visual Disturbances: 2-Mild Sensitivity Headache: 0-None Present CIWA-Ar Total Score: 18 BHS Progress Note (SOAP) Subjective: Anxious, Tremors, Sweating, FAtigue. Patient reports discomfort and swelling in Left ankle X approx. 1 week. Patient denies any known history of left foot / ankle injury. Patient denies pain in any other part of his body. Patient reported swelling and pain in left ankle at admission assessment. Ultrasound w/ Doppler already ordered for this AM by admitting provider. Results pending. Objective: PT. A & O X 3, OBSERVED AMBULATING ON UNIT. NO ACUTE DISTRESS. SWELLING NOTED IN LEFT ANKLE AND FOOT. NO ERYTHEMA, WOUNDS OR UNUSUAL DISCHARGE NOTED IN LEFT FOOT / ANKLE. NO ERYTHEMA OR SWELLING NOTED IN LEFT CALF / LOWER LEG. 07/08/17 10:41 Vital Signs Temperature 96.2 F L 07/08/17 09:24 Pulse Rate 64 07/08/17 09:24 Respiratory Rate 18 07/08/17 09:24 Blood Pressure 119/82 07/08/17 09:24 O2 Sat by Pulse Oximetry (%) Laboratory Tests 07/07/17 16:00 Urine Color Damaris Urine Appearance Turbid Urine pH 5.0 D Ur Specific [place] 1.036 H Urine Protein 1+ H Urine Glucose (UA) Negative Urine Ketones Negative Urine Blood Negative Urine Nitrite Negative Urine Bilirubin Negative Urine Urobilinogen 2.0 Ur Leukocyte Esterase Negative Urine WBC (Auto) 22 Urine RBC (Auto) 1 Urine Bacteria Moderate Urine Mucus Few UA RESULTS NOTED. OTHER ADMISSION LAB RESULTS PENDING. 07/08/17 10:44 Assessment: 07/08/17 10:43 WITHDRAWAL SYMPTOMS. Plan: CONTINUE DETOX.
--- NOTE | 2017-07-08 11:57 | PN ---
S Progress Note Note: Results of Doppler, Ultrasound of Left foot and Ankle noted. No evidence of DVT noted on report. Order X-Ray of Left Foot / Ankle. Start Naproxen, 375 MG PO BID for pain, swelling. Niranjan Babcock, CASINO SHIFT MANAGER
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
[2017-07-08] MEDS: NAPROXEN 375 MG TABLET (FP) PO SCH ×2 (13:42→22:12)
[2017-07-08 15:15] LABS: HEMOGLOBIN 12.9 GM/dL (11.7-16.9); MCH 27.3 pg (25.7-33.7); MCHC 33.1 g/dl (32.0-35.9); MEAN CELL VOLUME 82.5 fl (80-96); MEAN PLT VOLUME 8.5 fl (7.5-11.1); PLATELET COUNT 284 K/MM3 (134-434); RBC 4.73 M/mm3 (4.00-5.60); RDW 14.1 % (11.9-15.9); WHITE BLOOD COUNT 5.4 K/mm3 (4.0-10.0)
[2017-07-08 15:22] LABS: CHLORIDE 104 mmol/L (98-107); POTASSIUM 4.1 mmol/L (3.5-5.1); SODIUM 140 mmol/L (136-145)
[2017-07-08 15:32] LABS: ALBUMIN 3.6 g/dl (3.4-5.0); ALK PHOS 119 U/L (45-117); ANION GAP 8 (8-16); BILIRUBIN,TOTAL 0.5 mg/dL (0.2-1.0); BLOOD UREA NITROGEN 15 mg/dL (7-18); CALCIUM 7.9 mg/dL (8.5-10.1); CO2 28 mmol/L (21-32); CREATININE 1.2 mg/dL (0.7-1.3); GLUCOSE,RANDOM 85 mg/dL (74-106); SGOT/AST 20 U/L (15-37); SGPT/ALT 14 U/L (12-78)
[2017-07-08] MEDS: THIAMINE HCL 100 MG TABLET (FP) PO SCH (22:10)
[2017-07-08] MEDS: ARIPiprazole 10 MG TABLET PO SCH (22:11)
[2017-07-08] MEDS: DIVALPROEX SODIUM 500 MG TABLET E.C. PO SCH (22:11)
[2017-07-08] MEDS: hydrOXYzine PAMOATE 25 MG CAPSULE (FP) PO PRN (22:14)
[2017-07-09] MEDS: chlordiazePOXIDE HCL 25 MG CAPSULE PO SCH ×2 (05:18→10:16)
[2017-07-09] MEDS: ACETAMINOPHEN 325 MG TABLET (FP) PO PRN (05:19)
[2017-07-09] MEDS: NAPROXEN 375 MG TABLET (FP) PO SCH ×2 (10:15→22:16)
[2017-07-09] MEDS: PRENATAL VITAMINS W/ FOLIC ACID TABLET (FP) PO SCH (10:16)
[2017-07-09] MEDS: DIVALPROEX SODIUM 500 MG TABLET E.C. PO SCH ×2 (10:16→22:15)
[2017-07-09] MEDS: ESCITALOPRAM OXALATE 20 MG TABLET (FP) PO SCH (10:16)
--- NOTE | 2017-07-09 12:59 | PN ---
[facility] CIWA - CIWA Score Nausea/Vomitin-No Nausea/No Vomiting Muscle Tremors: 2 Anxiety: 4-Mod. Anxious/Guarded Agitation: 3 Paroxysmal Sweats: 3 Orientation: 0-Oriented Tacttile Disturbances: 2-Mild Itch/Numbness/Burn Auditory Disturbances: 0-None Visual Disturbances: 2-Mild Sensitivity Headache: 0-None Present CIWA-Ar Total Score: 16 [facility] Progress Note (SOAP) Subjective: Chills, Diarrhea, Anxious, Interrupted Sleep. Objective: PT. A & O X 3, OBSERVED AMBULATING ON UNIT. NO ACUTE DISTRESS. 07/09/17 12:54 Vital Signs Temperature 96.9 F L 07/09/17 09:22 Pulse Rate 70 07/09/17 09:22 Respiratory Rate 20 07/09/17 09:22 Blood Pressure 117/85 07/09/17 09:22 O2 Sat by Pulse Oximetry (%) Laboratory Tests 07/07/17 07/08/17 07/08/17 16:00 08:20 08:20 WBC 5.4 RBC 4.73 Hgb 12.9 Hct 39.0 MCV 82.5 MCH 27.3 MCHC 33.1 RDW 14.1 Plt Count 284 MPV 8.5 Sodium 140 Potassium 4.1 Chloride 104 Carbon Dioxide 28 Anion Gap 8 BUN 15 D Creatinine 1.2 Creat Clearance w eGFR > 60 Random Glucose 85 Calcium 7.9 L Total Bilirubin 0.5 D AST 20 D ALT 14 Alkaline Phosphatase 119 H Total Protein 7.0 Albumin 3.6 Urine Color Damaris Urine Appearance Turbid Urine pH 5.0 D Ur Specific [place] 1.036 H Urine Protein 1+ H Urine Glucose (UA) Negative Urine Ketones Negative Urine Blood Negative Urine Nitrite Negative Urine Bilirubin Negative Urine Urobilinogen 2.0 Ur Leukocyte Esterase Negative Urine WBC (Auto) 22 Urine RBC (Auto) 1 Urine Bacteria Moderate Urine Mucus Few Valproic Acid RPR Titer 07/08/17 07/08/17 08:20 14:00 WBC RBC Hgb Hct MCV MCH MCHC RDW Plt Count MPV Sodium Potassium Chloride Carbon Dioxide Anion Gap BUN Creatinine Creat Clearance w eGFR Random Glucose Calcium Total Bilirubin AST ALT Alkaline Phosphatase Total Protein Albumin Urine Color Urine Appearance Urine pH Ur Specific [place] Urine Protein Urine Glucose (UA) Urine Ketones Urine Blood Urine Nitrite Urine Bilirubin Urine Urobilinogen Ur Leukocyte Esterase Urine WBC (Auto) Urine RBC (Auto) Urine Bacteria Urine Mucus Valproic Acid < 3.000 L RPR Titer Nonreactive LABS NOTED. RESULTS OF LEFT ANKLE/FOOT X-RAY NOTED. 07/09/17 12:59 Assessment: 07/09/17 12:55 WITHDRAWAL SYMPTOMS. Plan: CONTINUE DETOX. NAPROXEN BID FOR LEFT FOOT/ANKLE PAIN/SWELLING. PATIENT ADVISED TO STAY OFF OF FEET AND TO KEEP LEFT FOOT ELEVATED IN BED MUCH POSSIBLE FOR TIME BEING. PATIENT ADVISED TO FOLLOW-UP WITH ASSISTANT FIELD HOCKEY COACH DR. MORGAN ([place] FOR LEFT ANKLE / FOOT SWELLING AND PAIN AFTER DISCHARGE FROM DETOX FOR FURTHER EVALUATION. COPIES OF LEFT ANKLE / FOOT DOPPLER ULTRASOUND AND X-RAY GIVEN TO PATIENT.
[2017-07-09] MEDS: chlordiazePOXIDE 5 MG CAPSULE PO SCH ×2 (17:29→22:15)
[2017-07-09] MEDS: ARIPiprazole 10 MG TABLET PO SCH (22:15)
[2017-07-09] MEDS: THIAMINE HCL 100 MG TABLET (FP) PO SCH (22:15)
[2017-07-09] MEDS: hydrOXYzine PAMOATE 25 MG CAPSULE (FP) PO PRN (22:17)
[2017-07-10] MEDS: ACETAMINOPHEN 325 MG TABLET (FP) PO PRN (05:07)
[2017-07-10] MEDS: chlordiazePOXIDE 5 MG CAPSULE PO SCH ×2 (05:07→11:07)
[2017-07-10] MEDS: NAPROXEN 375 MG TABLET (FP) PO SCH ×2 (11:06→22:25)
[2017-07-10] MEDS: ESCITALOPRAM OXALATE 20 MG TABLET (FP) PO SCH (11:07)
[2017-07-10] MEDS: PRENATAL VITAMINS W/ FOLIC ACID TABLET (FP) PO SCH (11:07)
[2017-07-10] MEDS: DIVALPROEX SODIUM 500 MG TABLET E.C. PO SCH ×2 (11:07→22:25)
--- NOTE | 2017-07-10 12:07 | PN ---
[facility] Progress Note (SOAP) Subjective: ANXIETY,FATIGUE. C/O LEFT ANKLE PAIN/SWELLING X 1 WEEK. DENIES TRUAMA. DENIES GOING TO ER WHEN HE INITIALLY NOTED BEFORE COMING TO DETOX. SEE PREVIOUS NOTES FOR TESTS/CARE GIVEN WHILE HERE DETOXING. Objective: 07/10/17 12:06 Vital Signs Temperature 96.0 F L 07/10/17 09:12 Pulse Rate 61 07/10/17 09:12 Respiratory Rate 18 07/10/17 09:12 Blood Pressure 124/80 07/10/17 09:12 O2 Sat by Pulse Oximetry (%) Laboratory Last Values WBC 5.4 K/mm3 (4.0-10.0) 07/08/17 08:20 RBC 4.73 M/mm3 (4.00-5.60) 07/08/17 08:20 Hgb 12.9 GM/dL (11.7-16.9) 07/08/17 08:20 Hct 39.0 % (35.4-49) 07/08/17 08:20 MCV 82.5 fl (80-96) 07/08/17 08:20 MCH 27.3 pg (25.7-33.7) 07/08/17 08:20 MCHC 33.1 g/dl (32.0-35.9) 07/08/17 08:20 RDW 14.1 % (11.9-15.9) 07/08/17 08:20 Plt Count 284 K/MM3 (134-434) 07/08/17 08:20 MPV 8.5 fl (7.5-11.1) 07/08/17 08:20 Sodium 140 mmol/L (136-145) 07/08/17 08:20 Potassium 4.1 mmol/L (3.5-5.1) 07/08/17 08:20 Chloride 104 mmol/L (98-107) 07/08/17 08:20 Carbon Dioxide 28 mmol/L (21-32) 07/08/17 08:20 Anion Gap 8 (8-16) 07/08/17 08:20 BUN 15 mg/dL (7-18) D 07/08/17 08:20 Creatinine 1.2 mg/dL (0.7-1.3) 07/08/17 08:20 Creat Clearance w eGFR > 60 (>60) 07/08/17 08:20 Random Glucose 85 mg/dL (74-106) 07/08/17 08:20 Calcium 7.9 mg/dL (8.5-10.1) L 07/08/17 08:20 Total Bilirubin 0.5 mg/dL (0.2-1.0) D 07/08/17 08:20 AST 20 U/L (15-37) D 07/08/17 08:20 ALT 14 U/L (12-78) 07/08/17 08:20 Alkaline Phosphatase 119 U/L (45-117) H 07/08/17 08:20 Total Protein 7.0 g/dl (6.4-8.2) 07/08/17 08:20 Albumin 3.6 g/dl (3.4-5.0) 07/08/17 08:20 Urine Color Damaris 07/07/17 16:00 Urine Appearance Turbid 07/07/17 16:00 Urine pH 5.0 (5.0-8.0) D 07/07/17 16:00 Ur Specific [place] 1.036 (1.001-1.035) H 07/07/17 16:00 Urine Protein 1+ (NEGATIVE) H 07/07/17 16:00 Urine Glucose (UA) Negative (NEGATIVE) 07/07/17 16:00 Urine Ketones Negative (NEGATIVE) 07/07/17 16:00 Urine Blood Negative (NEGATIVE) 07/07/17 16:00 Urine Nitrite Negative (NEGATIVE) 07/07/17 16:00 Urine Bilirubin Negative (NEGATIVE) 07/07/17 16:00 Urine Urobilinogen 2.0 mg/dL (0.2-1.0) 07/07/17 16:00 Ur Leukocyte Esterase Negative (NEGATIVE) 07/07/17 16:00 Urine WBC (Auto) 22 /hpf (3-5) 07/07/17 16:00 Urine RBC (Auto) 1 /hpf (0-3) 07/07/17 16:00 Urine Bacteria Moderate /hpf (NONE SEEN) 07/07/17 16:00 Urine Mucus Few 07/07/17 16:00 Valproic Acid < 3.000 ug/ml (50-100) L 07/08/17 14:00 RPR Titer Nonreactive (NONREACTIVE) 07/08/17 08:20 HIV 1&2 Antibody Screen Negative 07/09/17 10:00 HIV P24 Antigen Negative 07/09/17 10:00 Assessment: 07/10/17 12:06 WITHDRAWAL SX Plan: CONTINUE DETOX/CARE.
[2017-07-10] MEDS: chlordiazePOXIDE HCL 10 MG CAPSULE PO SCH ×2 (17:17→22:25)
[2017-07-10] MEDS: ARIPiprazole 10 MG TABLET PO SCH (22:25)
[2017-07-10] MEDS: THIAMINE HCL 100 MG TABLET (FP) PO SCH (22:25)
[2017-07-11] MEDS: chlordiazePOXIDE HCL 10 MG CAPSULE PO SCH ×2 (05:19→10:20)
[2017-07-11] MEDS: PRENATAL VITAMINS W/ FOLIC ACID TABLET (FP) PO SCH (10:19)
[2017-07-11] MEDS: NAPROXEN 375 MG TABLET (FP) PO SCH ×2 (10:19→21:14)
[2017-07-11] MEDS: ESCITALOPRAM OXALATE 20 MG TABLET (FP) PO SCH (10:20)
[2017-07-11] MEDS: DIVALPROEX SODIUM 500 MG TABLET E.C. PO SCH ×2 (10:20→21:13)
--- NOTE | 2017-07-11 11:53 | DS ---
[facility] Detox Discharge Summary Admission Date: 07/07/17 Discharge Date: 07/11/17 - History Present History: Alcohol Dependence, Cocaine Dependence Additional Comments: PATIENT GOING TO [facility] ([place] FOR AFTERCARE. PATIENT ADVISED TO FOLLOW-UP WITH H[employer] AND B[employer] INSPECTOR DR. MORGAN ([place] AFTER DISCHARGE FROM REHAB FOR FURTHER MEDICAL EVALUATION OF SWELLING/PAIN OF LEFT ANKLE FOOT. PATIENT WAS DISCHARGED FROM DETOX UNIT IN STABLE MEDICAL CONDITION. Pertinent Past History: Depression, Bipolar Disorder, Migraine Headaches, Weight Loss. - Physical Exam Results Vital Signs: Vital Signs Temperature 96.6 F L 07/11/17 09:35 Pulse Rate 58 L 07/11/17 09:35 Respiratory Rate 18 07/11/17 09:35 Blood Pressure 123/82 07/11/17 09:35 O2 Sat by Pulse Oximetry (%) Pertinent Admission Physical Exam Findings: WITHDRAWAL SYMPTOMS. Laboratory Tests 07/07/17 07/08/17 07/08/17 16:00 08:20 08:20 WBC 5.4 RBC 4.73 Hgb 12.9 Hct 39.0 MCV 82.5 MCH 27.3 MCHC 33.1 RDW 14.1 Plt Count 284 MPV 8.5 Sodium 140 Potassium 4.1 Chloride 104 Carbon Dioxide 28 Anion Gap 8 BUN 15 D Creatinine 1.2 Creat Clearance w eGFR > 60 Random Glucose 85 Calcium 7.9 L Total Bilirubin 0.5 D AST 20 D ALT 14 Alkaline Phosphatase 119 H Total Protein 7.0 Albumin 3.6 Urine Color Damaris Urine Appearance Turbid Urine pH 5.0 D Ur Specific [place] 1.036 H Urine Protein 1+ H Urine Glucose (UA) Negative Urine Ketones Negative Urine Blood Negative Urine Nitrite Negative Urine Bilirubin Negative Urine Urobilinogen 2.0 Ur Leukocyte Esterase Negative Urine WBC (Auto) 22 Urine RBC (Auto) 1 Urine Bacteria Moderate Urine Mucus Few Valproic Acid RPR Titer HIV 1&2 Antibody Screen HIV P24 Antigen 07/08/17 07/08/17 07/09/17 08:20 14:00 10:00 WBC RBC Hgb Hct MCV MCH MCHC RDW Plt Count MPV Sodium Potassium Chloride Carbon Dioxide Anion Gap BUN Creatinine Creat Clearance w eGFR Random Glucose Calcium Total Bilirubin AST ALT Alkaline Phosphatase Total Protein Albumin Urine Color Urine Appearance Urine pH Ur Specific [place] Urine Protein Urine Glucose (UA) Urine Ketones Urine Blood Urine Nitrite Urine Bilirubin Urine Urobilinogen Ur Leukocyte Esterase Urine WBC (Auto) Urine RBC (Auto) Urine Bacteria Urine Mucus Valproic Acid < 3.000 L RPR Titer Nonreactive HIV 1&2 Antibody Screen Negative HIV P24 Antigen Negative LABS NOTED. - Treatment Hospital Course: Detox Protocol Followed, Detoxed Safely, Responded well, Discharged Condition Good, Rehab Referral Accepted Patient has Accepted a Rehab Referral to: [facility] ([facility] . - Medication Discharge Medications: Ambulatory Orders Lamotrigine [Lamotrigine -] 150 mg PO BID #60 tablet 04/20/15 Aripiprazole [Abilify -] 30 mg PO HS #30 tablet 09/22/15 Sumatriptan Succinate [Imitrex -] 50 mg PO ONCE PRN #6 tablet 09/09/16 Divalproex [Depakote -] 250 mg PO BID #60 tab 11/07/16 Escitalopram Oxalate [Lexapro -] 10 mg PO DAILY #30 tablet 11/07/16 - Diagnosis (1) Weight loss Current Visit: Yes Status: Acute (2) Alcohol dependence with uncomplicated withdrawal Current Visit: Yes Status: Acute (3) Bipolar disorder Current Visit: Yes Status: Chronic Qualifiers: Active/Remission status: remission status unspecified Qualified Code(s): F31.9 - Bipolar disorder, unspecified (4) Cocaine dependence with withdrawal Current Visit: Yes Status: Acute (5) Migraine headache Current Visit: Yes Status: Acute Qualifiers: Migraine type: unspecified Status migrainosus presence: without status migrainosus Intractability: not intractable Qualified Code(s): G43.909 - Migraine, unspecified, not intractable, without status migrainosus (6) Left ankle swelling Current Visit: Yes Status: Acute (7) Substance induced mood disorder Current Visit: Yes Status: Acute (8) Weight loss Current Visit: Yes Status: Acute - AMA Did Patient Leave Against Medical Advice: No
--- NOTE | 2017-07-11 11:59 | HP ---
[facility] Rehab Assess/Revision - Admission History Admitted to Rehab from: [facility] Date of Admission to Rehab: 08/08/2017. - Vital signs Vital Signs: Vital Signs Period Temp Pulse Resp BP Sys/[place] Pulse Ox Last 24 Hr 96.5 F-98.5 F 53-67 18-18 117-129/71-82 - Findings Detox History & Physical reviewed: Yes Concur with findings: Yes Comments/Additional Findings: PATIENT'S MEDICAL / MEDICATION HISTORY REVIWED PRIOR TO DISCHARGE FROM DETOX UNIT. PATIENT WAS DISCHARGED FROM DETOX UNIT TO BE TAKEN OVER TO REHAB UNIT IN STABLE MEDICAL CONDITION. Inpatient Rehab Admission - Initial Determination Are CD services needed?: Yes Free of communicable disease: Yes Not in need of hospitalization: Yes - Rehab Admission Criteria Previous failed treatment: Yes Comorbidities: Yes Patient is meeting Inpatient Rehab admission criteria:: Yes
[2017-07-11] MEDS ORDERED: PT OWN MED DRAWER 7, Y5N ONE (20:46)
[2017-07-11] MEDS: hydrOXYzine PAMOATE 25 MG CAPSULE (FP) PO PRN (21:13)
[2017-07-11] MEDS: THIAMINE HCL 100 MG TABLET (FP) PO SCH (21:13)
[2017-07-11] MEDS: ARIPiprazole 10 MG TABLET PO SCH (21:13)
[2017-07-12] MEDS ORDERED: ESCITALOPRAM OXALATE 10 MG TABLET (FP) ONE (08:46)
[2017-07-12] MEDS: NAPROXEN 375 MG TABLET (FP) PO SCH ×2 (10:06→23:04)
[2017-07-12] MEDS: DIVALPROEX SODIUM 500 MG TABLET E.C. PO SCH ×2 (10:07→21:22)
[2017-07-12] MEDS: ESCITALOPRAM OXALATE 20 MG TABLET (FP) PO SCH (10:07)
[2017-07-12] MEDS: PRENATAL VITAMINS W/ FOLIC ACID TABLET (FP) PO SCH (10:07)
[2017-07-12] MEDS ORDERED: PNEUMOCOCCAL 23 VACCINE 0.5 ML VIAL IM ONE (12:00)
[2017-07-12] MEDS ORDERED: PNEUMOC 13-VAL CONJ-DIP CRM/PF 0.5 ML DISP.SYRIN IM ONE (12:00)
[2017-07-12] MEDS: ARIPiprazole 10 MG TABLET PO SCH (21:22)
[2017-07-12] MEDS: THIAMINE HCL 100 MG TABLET (FP) PO SCH (21:22)
[2017-07-12] MEDS ORDERED: PT OWN MED DRAWER 7, Y5N ONE (23:04)
[2017-07-13] MEDS ORDERED: ESCITALOPRAM OXALATE 10 MG TABLET (FP) ONE (08:41)
[2017-07-13] MEDS ORDERED: PT OWN MED DRAWER 7, Y5N ONE ×2 (08:42→20:29)
[2017-07-13] MEDS: DIVALPROEX SODIUM 500 MG TABLET E.C. PO SCH ×2 (09:59→22:04)
[2017-07-13] MEDS: PRENATAL VITAMINS W/ FOLIC ACID TABLET (FP) PO SCH (09:59)
[2017-07-13] MEDS: ESCITALOPRAM OXALATE 20 MG TABLET (FP) PO SCH (09:59)
[2017-07-13] MEDS: NAPROXEN 375 MG TABLET (FP) PO SCH ×2 (09:59→22:04)
[2017-07-13] MEDS: ARIPiprazole 10 MG TABLET PO SCH (22:04)
[2017-07-13] MEDS: THIAMINE HCL 100 MG TABLET (FP) PO SCH (22:05)
--- NOTE | 2017-07-14 09:36 | HP ---
Psychiatrist Admission - Data Date of interview: 07/14/17 Admission source: 3N Identifying data: This is the second [facility] admission for this 56 years old Black male, father of 4 children, unemployed on public assistance, domiciled Medical History: Significant for cluster headaches, arthritis of left knee and history of treatment for syphilis (1980), bilateral inguinal herniorraphy (1989 ) and orthosurgery for torn meniscus of left knee (1989). Psychiatric History: Patient is a good and relable historian. He reports that his first psychiatric contact was in his late 20's or early 30's when he was admitted to [facility] for depression and suicidal attempt by taking pills. He was diagnosed with Bipolar and started on medications. Reports a subsequent admission a year later again to [facility] for depression and suicidal attempt by cutting his wrist. Reports currently receiving psychiatric outpatient services at [facility] in the [place] and he is prescribed Lexapro 20 mg po daily, Abilify 30 mg po daily, Lamictal 150 mg po BID, Depakote 500 mg po BID and Ambien 10 mg po HS. He was seen on 07/08/[address] Rider while in detox and he was prescribed Lexapro 20 mg po daily, Abilify 20 mg po daily and Depakote 500 mg po BID. At present, reports feeling well but sleeps poorly. Physical/Sexual Abuse/Trauma History: Denies history of emotional, phusical or sexual abuse as well as DV relationship. Reports serving 4 years in the [employer] with honorable discharge Additional Comment: No criminal history Vital Signs: Vital Signs - 24 hr 07/14/17 07/14/17 07/14/17 00:30 03:29 06:53 Temperature 96.6 F L Pulse Rate 53 L Respiratory 16 16 18 Rate Blood Pressure 125/85 Allergies/Adverse Reactions: Allergies Allergy/AdvReac Type Severity Reaction Status Date / Time No Known Allergies Allergy Verified 07/07/17 12:06 Date of last physical exam: 07/07/17 Concur with the findings of this exam: Yes - Substance Abuse/Tx History Hx Alcohol Use: Yes Hx Substance Use: Yes Substance Use Type: Alcohol (Started drinking alcohol at age 19, consumes a fifth of vodka & 2x 6pk(16oz) of beer daily. Last drank on 07/06/17), Cocaine ( Started smoking crack cocaine at age 27, consumes $150 worth daily. Last Smoked on 07/06/17) Hx Substance Use Treatment: Yes (3previous inpt detox & one inpt rehab) Mental Status Exam - Mental Status Exam Alert and Oriented to: Time, Place, Person Cognitive Function: Fair Patient Appearance: Well Groomed Mood: Hopeful, Euthymic Affect: Appropriate, Normal Range Patient Behavior: Cooperative Speech Pattern: Clear Voice Loudness: Normal Thought Process: Intact, Goal Oriented Hallucinations: Denies Suicidal Ideation: Denies Homicidal Ideation: Denies Sleep: Poorly Appetite: Good Muscle strength/Tone: Normal Gait/Station: Normal Psychiatric Findings - Problem List (Vanduser 1, 2,3) (1) Alcohol dependence Current Visit: Yes Status: Acute (2) Cocaine dependence Current Visit: Yes Status: Acute (3) Bipolar II disorder Current Visit: Yes Status: Chronic (4) Substance-induced sleep disorder Current Visit: Yes Status: Acute (5) H/O cluster headache Current Visit: No Status: Chronic - Initial Treatment Plan Initial Treatment Plan: 1) Continue Lexapro 20 mg po daily and Depakote 500 mg po BID(Valproic Acid serum level < 3.0 on 08/05/17). 2) Start Abilify 30 mg po daily and Lamictal 25 mg po BID. 3) Repeat Valproic Acid serum level. 4) Monitor progress
[2017-07-14] MEDS: PRENATAL VITAMINS W/ FOLIC ACID TABLET (FP) PO SCH (10:15)
[2017-07-14] MEDS: DIVALPROEX SODIUM 500 MG TABLET E.C. PO SCH ×2 (10:15→21:39)
[2017-07-14] MEDS: NAPROXEN 375 MG TABLET (FP) PO SCH ×2 (10:28→21:40)
[2017-07-14] MEDS: ESCITALOPRAM OXALATE 20 MG TABLET (FP) PO SCH (10:39)
[2017-07-14] MEDS: lamoTRIgine 25 MG TABLET PO SCH ×2 (11:42→21:39)
[2017-07-14] MEDS: THIAMINE HCL 100 MG TABLET (FP) PO SCH (21:39)
[2017-07-14] MEDS: hydrOXYzine PAMOATE 25 MG CAPSULE (FP) PO PRN (21:39)
[2017-07-15] MEDS: ARIPiprazole 15 MG TABLET PO SCH (10:12)
[2017-07-15] MEDS: ESCITALOPRAM OXALATE 20 MG TABLET (FP) PO SCH (10:13)
[2017-07-15] MEDS: PRENATAL VITAMINS W/ FOLIC ACID TABLET (FP) PO SCH (10:13)
[2017-07-15] MEDS: DIVALPROEX SODIUM 500 MG TABLET E.C. PO SCH ×2 (10:13→21:16)
[2017-07-15] MEDS: lamoTRIgine 25 MG TABLET PO SCH ×2 (10:14→21:16)
[2017-07-15] MEDS: NAPROXEN 375 MG TABLET (FP) PO SCH ×2 (10:15→21:16)
[2017-07-15] MEDS: THIAMINE HCL 100 MG TABLET (FP) PO SCH (21:16)
[2017-07-16] MEDS: DIVALPROEX SODIUM 500 MG TABLET E.C. PO SCH ×2 (09:55→21:30)
[2017-07-16] MEDS: ESCITALOPRAM OXALATE 20 MG TABLET (FP) PO SCH (09:55)
[2017-07-16] MEDS: PRENATAL VITAMINS W/ FOLIC ACID TABLET (FP) PO SCH (09:55)
[2017-07-16] MEDS: lamoTRIgine 25 MG TABLET PO SCH ×2 (09:55→21:30)
[2017-07-16] MEDS: NAPROXEN 375 MG TABLET (FP) PO SCH ×2 (09:55→21:30)
[2017-07-16] MEDS: ARIPiprazole 15 MG TABLET PO SCH (09:55)
[2017-07-16] MEDS: THIAMINE HCL 100 MG TABLET (FP) PO SCH (21:30)
[2017-07-17] MEDS: PRENATAL VITAMINS W/ FOLIC ACID TABLET (FP) PO SCH (09:51)
[2017-07-17] MEDS: ESCITALOPRAM OXALATE 20 MG TABLET (FP) PO SCH (09:51)
[2017-07-17] MEDS: NAPROXEN 375 MG TABLET (FP) PO SCH ×2 (09:52→22:47)
[2017-07-17] MEDS: ARIPiprazole 15 MG TABLET PO SCH (09:52)
[2017-07-17] MEDS: lamoTRIgine 25 MG TABLET PO SCH ×2 (09:52→22:46)
[2017-07-17] MEDS: DIVALPROEX SODIUM 500 MG TABLET E.C. PO SCH ×2 (09:52→22:46)
[2017-07-17] MEDS: THIAMINE HCL 100 MG TABLET (FP) PO SCH (22:46)
[2017-07-18] MEDS ORDERED: PT OWN MED DRAWER 7, Y5N ONE ×2 (08:54→20:42)
[2017-07-18] MEDS: ARIPiprazole 15 MG TABLET PO SCH (10:04)
[2017-07-18] MEDS: lamoTRIgine 25 MG TABLET PO SCH ×2 (10:04→21:33)
[2017-07-18] MEDS: ESCITALOPRAM OXALATE 20 MG TABLET (FP) PO SCH (10:04)
[2017-07-18] MEDS: PRENATAL VITAMINS W/ FOLIC ACID TABLET (FP) PO SCH (10:04)
[2017-07-18] MEDS: DIVALPROEX SODIUM 500 MG TABLET E.C. PO SCH ×2 (10:04→21:33)
[2017-07-18] MEDS: NAPROXEN 375 MG TABLET (FP) PO SCH ×2 (10:06→21:34)
[2017-07-18] MEDS: THIAMINE HCL 100 MG TABLET (FP) PO SCH (21:33)
[2017-07-19] MEDS ORDERED: PT OWN MED DRAWER 7, Y5N ONE (09:04)
[2017-07-19] MEDS: lamoTRIgine 25 MG TABLET PO SCH ×2 (09:58→21:34)
[2017-07-19] MEDS: DIVALPROEX SODIUM 500 MG TABLET E.C. PO SCH ×2 (09:58→21:34)
[2017-07-19] MEDS: ESCITALOPRAM OXALATE 20 MG TABLET (FP) PO SCH (09:58)
[2017-07-19] MEDS: PRENATAL VITAMINS W/ FOLIC ACID TABLET (FP) PO SCH (09:58)
[2017-07-19] MEDS: ARIPiprazole 15 MG TABLET PO SCH (09:58)
[2017-07-19] MEDS: NAPROXEN 375 MG TABLET (FP) PO SCH ×2 (09:59→21:34)
[2017-07-19] MEDS: THIAMINE HCL 100 MG TABLET (FP) PO SCH (21:34)
[2017-07-20 06:53] VITALS: PULSE 53
[2017-07-20] MEDS: PRENATAL VITAMINS W/ FOLIC ACID TABLET (FP) PO SCH (10:11)
[2017-07-20] MEDS: ARIPiprazole 15 MG TABLET PO SCH (10:11)
[2017-07-20] MEDS: ESCITALOPRAM OXALATE 20 MG TABLET (FP) PO SCH (10:11)
[2017-07-20] MEDS: lamoTRIgine 25 MG TABLET PO SCH ×2 (10:11→21:06)
[2017-07-20] MEDS: DIVALPROEX SODIUM 500 MG TABLET E.C. PO SCH ×2 (10:11→21:06)
[2017-07-20] MEDS: NAPROXEN 375 MG TABLET (FP) PO SCH ×2 (10:13→21:06)
[2017-07-20] MEDS: BACITRACIN 0.9 GM PACKET TP SCH (21:06)
[2017-07-20] MEDS: THIAMINE HCL 100 MG TABLET (FP) PO SCH (21:06)
[2017-07-21 06:57] VITALS: BP 125/79; TEMP 98.1
--- NOTE | 2017-07-21 08:27 | PN ---
Psychiatric Progress Note Vital Signs: Vital Signs Period Temp Pulse Resp BP Sys/Caldwell Pulse Ox Last 24 Hr 98.1 F 53 16-18 125/79 Date of Session: 07/21/17 Chief Complaint:: Discharge Note HPI: Patient addressing Alcohol and Cocaine Dependence comorbid with Nicotine Dependence and Substance-Induced Sleep Disorder ROS: History of cluster headache Current Medications: Active Medications Generic Name Dose Route Start Last Admin Trade Name Freq PRN Reason Stop Dose Admin Acetaminophen 650 mg 07/07/17 12:28 07/10/17 05:07 Tylenol - PO 650 mg Q4H PRN Administration FEVER Al Hydroxide/Mg Hydroxide 30 ml 07/07/17 12:28 Mylanta Oral Suspension - PO Q6H PRN DYSPEPSIA Aripiprazole 30 mg 07/15/17 10:00 07/20/17 10:11 Abilify PO 30 mg DAILY MARGARITA Administration Bacitracin 0.9 gm 07/20/17 22:00 07/20/17 21:06 Bacitracin - TP 0.9 gm BID MARGARITA Administration Divalproex Sodium 500 mg 07/08/17 22:00 07/20/17 21:06 Depakote - PO 500 mg BID MARGARITA Administration Escitalopram Oxalate 20 mg 07/09/17 10:00 07/20/17 10:11 Lexapro - PO 20 mg DAILY MARGARITA Administration Eucalyptus/Menthol/Phenol/Sorbitol 1 each 07/07/17 12:28 Cepastat Lozenge - MM Q4H PRN SORE THROAT Guaifenesin 10 ml 07/07/17 12:28 Robitussin Dm - PO Q6H PRN COUGH Hydroxyzine Pamoate 25 mg 07/07/17 12:28 07/14/17 21:39 Vistaril - PO 25 mg Q4H PRN Administration AGITATION Lamotrigine 25 mg 07/14/17 11:00 07/20/17 21:06 Lamictal - PO 25 mg BID MARGARITA Administration Loperamide HCl 4 mg 07/07/17 12:28 Imodium - PO Q6H PRN DIARRHEA Magnesium Citrate 300 ml 07/07/17 12:28 Citroma - PO Q48H PRN CONSTIPATION Magnesium Hydroxide 30 ml 07/07/17 12:28 Milk Of Magnesia - PO DAILY PRN CONSTIPATION Naproxen 375 mg 07/08/17 12:00 07/20/17 21:06 Naprosyn - PO 375 mg BID MARGARITA Administration Multivit/Folic Acid/Iron 1 tab 07/08/17 10:00 07/20/17 10:11 Vitamins (Sjr) - PO 1 tab DAILY MARGARITA Administration Pseudoephedrine/Triprolidine 1 combo 07/07/17 12:28 Actifed - PO TID PRN NASAL CONGESTION Thiamine HCl 100 mg 07/07/17 22:00 07/20/17 21:06 Vitamin B1 - PO 100 mg HS MARGARITA Administration Current Side Effect: No Lab tests ordered: Yes Lab tests reviewed: Yes Provider note:: Patient has completed this program today. He has met his treatment goals and will continue to address his issues in outpatient treatment at [facility] [address]. Told specifications writer that from his participation in this program, he has learned to identify his triggers and how best to avoid them. He responded well to Lexapro 20 mg po daily, Depakote 500 mg po BID, Abilify 30 mg po daily and Lamictal 25 mg po BID. Scripts for 30 days supply of these medications will electronicaly transmitted to [facility] at [address] [place] [address]. He is stable for discharge today Total face to face time:: 35 Mental Status Exam - Mental Status Exam Alert and Oriented to: Time, Place, Person Cognitive Function: Fair Patient Appearance: Well Groomed Mood: Hopeful, Euthymic Affect: Appropriate Patient Behavior: Cooperative Speech Pattern: Clear Voice Loudness: Normal Thought Process: Intact, Goal Oriented Thought Disorder: Not Present Hallucinations: Denies Suicidal Ideation: Denies Homicidal Ideation: Denies Insight/Judgement: Fair Sleep: Fair Appetite: Good Muscle strength/Tone: Normal Gait/Station: Normal Psychiatric Treatment Plan - Problem List (5) H/O cluster headache Initial treatment plan: Patient is discharged today and referred to [facility] for outpatient treatment
[2017-07-21] MEDS: NAPROXEN 375 MG TABLET (FP) PO SCH (09:01)
[2017-07-21] MEDS: lamoTRIgine 25 MG TABLET PO SCH (09:01)
[2017-07-21] MEDS: DIVALPROEX SODIUM 500 MG TABLET E.C. PO SCH (09:01)
[2017-07-21] MEDS: ARIPiprazole 15 MG TABLET PO SCH (09:01)
[2017-07-21] MEDS: ESCITALOPRAM OXALATE 20 MG TABLET (FP) PO SCH (09:01)
[2017-07-21] MEDS: BACITRACIN 0.9 GM PACKET TP SCH (09:01)
[2017-07-21] MEDS: PRENATAL VITAMINS W/ FOLIC ACID TABLET (FP) PO SCH (09:01)
== END 2017-07-21 08:40 | disposition home or self-care (01) | DRG 895 ==
LOC: YASAS 10:59 → Y3N 12:40 → Y3W 07-11 14:52
PROVIDERS: ADMIT Internal Medicine; ATTEND Psychiatry & Neurology Psychiatry
PROC: HZ2ZZZZ Detoxification Services for Substance Abuse Treatment (ICD-10-PCS; principal; 2017-07-07)
PROC: HZ42ZZZ Group Counseling for Substance Abuse Treatment, Cognitive-Behavioral (ICD-10-PCS; 2017-07-11)
DX: F19.230 Other psychoactive substance dependence with withdrawal, uncomplicated (principal); F14.20 Cocaine dependence, uncomplicated; F31.81 Bipolar II disorder; F19.282 Other psychoactive substance dependence with psychoactive substance-induced sleep disorder; F10.230 Alcohol dependence with withdrawal, uncomplicated; F19.24 Other psychoactive substance dependence with psychoactive substance-induced mood disorder; M25.472 Effusion, left ankle; G43.909 Migraine, unspecified, not intractable, without status migrainosus; Z87.891 Personal history of nicotine dependence; Z87.438 Personal history of other diseases of male genital organs; Z91.5 Personal history of self-harm
CPT/HCPCS: 36415; 73610-TC-LT-FY; 73630-TC-LT; 80053; 80164; 80175; 81003; 81015; 85027; 86593; 87389; 90732; 93005; 93010; 93971-TC; G0009

== ENCOUNTER 2017-08-22 10:36 | Inpatient (IN) | payer OTHER ==
[2017-08-22 15:30] VITALS: BMI 29.5
--- NOTE | 2017-08-22 17:09 | HP ---
CIWA Score - CIWA Score Nausea/Vomitin Muscle Tremors: 2 Anxiety: 2 Agitation: 1-Slight > Activity Paroxysmal Sweats: 2 Orientation: 0-Oriented Tacttile Disturbances: 0-None Auditory Disturbances: 1-Very Mild Visual Disturbances: 1-Very Mild Sensitivity Headache: 2-Mild CIWA-Ar Total Score: 13 Admission ROS S - HPI Chief Complaint: WITHDRAWAL SYMPTOMS Allergies/Adverse Reactions: Allergies Allergy/AdvReac Type Severity Reaction Status Date / Time No Known Allergies Allergy Verified 08/22/17 16:42 History of Present Illness: 56 Y.O. MAN WITH A HISTORY OF ALCOHOL DEPENDENCE IS HERE SEEKING DETOX. HE LAST COMPLETED DETOX 08/2016 AND REHAB 07/2017. HIS LONGEST PERIOD SOBER HAS BEEN 6 YEARS. Exam Limitations: No Limitations - Ebola screening Have you traveled outside of the country in the last 21 days: No Have you had contact with anyone from an Ebola affected area: No Have you been sick,other than usual withdrawal symptoms: No Do you have a fever: No - Review of Systems Constitutional: Chills, Diaphoresis, Loss of Appetite, Night Sweats, Changes in sleep, Unintentional Wgt. Loss EENT: reports: No Symptoms Reported Respiratory: reports: No Symptoms reported Cardiac: reports: No Symptoms Reported, Lightheadedness GI: reports: Diarrhea, Nausea, Abdominal cramping : reports: No Symptoms Reported Musculoskeletal: reports: Joint Pain (PAIN TO BILATERAL KNEES; S) Integumentary: reports: No Symptoms Reported Neuro: reports: Headache Endocrine: reports: No Symptoms Reported Hematology: reports: No Symptoms Reported Psychiatric: reports: other Other Systems: Reviewed and Negative (BIPOLAR) Patient History - Patient Medical History Hx Anemia: No Hx Asthma: No Hx Chronic Obstructive Pulmonary Disease (COPD): No Hx Cancer: No Hx Cardiac Disorders: No Hx Congestive Heart Failure: No Hx Hypertension: No Hx Hypercholesterolemia: No Hx Pacemaker: No HX Cerebrovascular Accident: No Hx Seizures: No Hx Dementia: No Hx Diabetes: No Hx Gastrointestinal Disorders: No Hx Liver Disease: No Hx Genitourinary Disorders: No Hx Sexually Transmitted Disorders: No Hx Renal Disease (ESRD): No Hx Thyroid Disease: No Hx Human Immunodeficiency Virus (HIV): No (NEGATIVE HX in 2014) Hx Hepatitis C: No Hx Depression: Yes Hx Suicide Attempt: Yes (took overdose pills last 20 yrs ago) Hx Bipolar Disorder: Yes Hx Schizophrenia: No - Patient Surgical History Past Surgical History: Yes Hx Neurologic Surgery: No Hx Cataract Extraction: No Hx Cardiac Surgery: No Hx Lung Surgery: No Hx Breast Surgery: No Hx Breast Biopsy: No Hx Abdominal Surgery: No Hx Appendectomy: No Hx Cholecystectomy: No Hx Genitourinary Surgery: No Hx Section: No Hx Orthopedic Surgery: Yes (torn meniscus, left knee in 2005) Other Surgical History: bilateral inguinal hernia repair in 1989 Anesthesia Reaction: No - PPD History Date: 09/07/16 Results: 0 mm - Reproductive History Patient is a Female of Child Bearing Age (11 -55 yrs old): No - Smoking Cessation Smoking history: Former smoker Have you smoked in the past 12 months: No Aproximately how many cigarettes per day: 0 If you are a former smoker, when did you quit?: 2010 Cigars Per Day: 0 Hx Chewing Tobacco Use: No Initiated information on smoking cessation: No - Substance & Tx. History Hx Alcohol Use: Yes Hx Substance Use: Yes Substance Use Type: Alcohol, Cocaine Hx Substance Use Treatment: Yes - Substances Abused Alcohol Route: Oral Frequency: Daily Amount used: 2/5TH VODKA Age of first use: 19 Date of Last Use: 08/21/17 Cocaine Route: Smoking Frequency: Daily Amount used: $100 Age of first use: 27 Date of Last Use: 08/22/17 Family Disease History - Family Disease History Family Disease History: CA: Father (PROSTRATE CA-), Mother (UTERINE CA- ), Sister () Admission Physical Exam BHS - Vital Signs Vital Signs: Vital Signs - 24 hr 08/22/17 15:22 Temperature 97.9 F Pulse Rate 69 Respiratory 16 Rate Blood Pressure 130/85 - Physical General Appearance: Yes: Tremorous, Irritable, Sweating, Anxious HEENTM: Yes: Hearing grossly Normal, Normocephalic, Normal Voice Respiratory: Yes: Chest Non-Tender, Lungs Clear, Normal Breath Sounds, No Respiratory Distress, No Accessory Muscle Use Neck: Yes: No masses,lesions,Nodules Breast: Yes: Breast Exam Deferred, Within Normal Limits Cardiology: Yes: Regular Rhythm, Regular Rate Abdominal: Yes: Normal Bowel Sounds, Non Tender, Flat Genitourinary: Yes: Other (NO COMPLAINTS REPORTED) Back: Yes: Normal Inspection Musculoskeletal: Yes: full range of Motion, Gait Steady, Pelvis Stable Extremities: Yes: Normal Inspection, Pedal Edema (LEFT FOOT) Neurological: Yes: Fully Oriented, Alert, Motor Strength 5/5, Normal Mood/Affect , Normal Response Integumentary: Yes: Pitting Edema (LEFT FOOT EDEMA) Lymphatic: Yes: Within Normal Limits - Diagnostic (1) Alcohol dependence with uncomplicated withdrawal Current Visit: Yes Status: Chronic (2) Cocaine dependence Current Visit: Yes Status: Chronic (3) Left ankle swelling Current Visit: Yes Status: Acute (4) Weight loss Current Visit: Yes Status: Acute Cleared for Admission [facility] - Detox or Rehab [facility] Level of Care: Medically Managed Detox Regimen/Protocol: Librium [facility] Breath Alcohol Content Breath Alcohol Content: 0 Urine Drug Screen - Results Drug Screen Negative: No Urine Drug Screen Results: RONNIE-Cocaine
[2017-08-22] MEDS ORDERED: LOPERAMIDE HCL 2 MG CAPSULE PO PRN (17:15)
[2017-08-22] MEDS ORDERED: IBUPROFEN 400 MG TABLET (FP) PO PRN (17:15)
[2017-08-22] MEDS ORDERED: MENTHOL/PHENOL 1 EACH UD MM PRN (17:15)
[2017-08-22] MEDS ORDERED: ACETAMINOPHEN 325 MG TABLET (FP) PO PRN (17:15)
[2017-08-22] MEDS ORDERED: hydrOXYzine PAMOATE 50 MG CAPSULE (FP) PO PRN (17:15)
[2017-08-22] MEDS ORDERED: P-EPHED 60MG/TRIPROLIDI 2.5MG TABLET PO PRN (17:15)
[2017-08-22] MEDS ORDERED: guaiFENesin/D-METHORPHAN HB 10 ML UNIT-DOSE CUPS PO PRN (17:15)
[2017-08-22] MEDS ORDERED: MAGNESIUM HYDROX 2400MG/30ML ORAL SUSPENSION 30 ML CUP PO PRN (17:15)
[2017-08-22] MEDS ORDERED: chlordiazePOXIDE HCL 25 MG CAPSULE PO PRN (17:15)
[2017-08-22] MEDS ORDERED: MAGNESIUM CITRATE 300 ML BOTTLE PO PRN (17:15)
[2017-08-22] MEDS ORDERED: MAG HYDROX/AL HYDROX/SIMETH 30 ML UNIT-DOSE CUP PO PRN (17:15)
[2017-08-22] MEDS ORDERED: diphenhydrAMINE HCL 50 MG CAPSULE PO PRN (17:24)
[2017-08-22] MEDS ORDERED: chlordiazePOXIDE HCL 25 MG CAPSULE PO ONE (18:00)
[2017-08-22] MEDS ORDERED: MELATONIN 5 MG TABLETS PO PRN (22:00)
[2017-08-22] MEDS: chlordiazePOXIDE HCL 25 MG CAPSULE PO SCH (22:42)
[2017-08-22] MEDS: THIAMINE HCL 100 MG TABLET (FP) PO SCH (22:42)
[2017-08-23 01:42] LABS: URINE APPEARANCE CLEAR; URINE BILIRUBIN NEGATIVE (<2.0 mg/dL); URINE BLOOD NEGATIVE (NEGATIVE); URINE COLOR YELLOW; URINE GLUCOSE (UA) NEGATIVE (NEGATIVE); URINE KETONE TRACE (NEGATIVE); URINE LEUK ESTERASE NEGATIVE (NEGATIVE); URINE NITRITE NEGATIVE (NEGATIVE); URINE PROTEIN NEGATIVE (NEGATIVE); URINE UROBILINOGEN NEGATIVE mg/dL (0.2-1.0)
[2017-08-23] MEDS: chlordiazePOXIDE HCL 25 MG CAPSULE PO SCH ×4 (05:34→22:27)
--- NOTE | 2017-08-23 10:39 | EKG ---
Test Reason : Blood Pressure : / mmHG Vent. Rate : 068 BPM Atrial Rate : 068 BPM P-R Int : 154 ms QRS Dur : 084 ms QT Int : 408 ms P-R-T Axes : 066 -15 -47 degrees QTc Int : 433 ms NORMAL SINUS RHYTHM SEPTAL INFARCT (CITED ON OR BEFORE 05-SEP-2016) ABNORMAL ECG WHEN COMPARED WITH ECG OF 07-JUL-2017 13:48, NO SIGNIFICANT CHANGE WAS FOUND Confirmed by BRADEN MEJIA MD ([id number]) on 08/23/2017 10:39:19 AM Referred By: Confirmed By:BRADEN MEJIA MD
[2017-08-23] MEDS: PRENATAL VITAMINS W/ FOLIC ACID TABLET (FP) PO SCH (11:07)
[2017-08-23 11:28] LABS: HEMATOCRIT 39.2 % (35.4-49); HEMOGLOBIN 12.8 GM/dL (11.7-16.9); MCH 26.9 pg (25.7-33.7); MCHC 32.8 g/dl (32.0-35.9); MEAN CELL VOLUME 82.1 fl (80-96); MEAN PLT VOLUME 9.2 fl (7.5-11.1); PLATELET COUNT 192 K/MM3 (134-434); RBC 4.77 M/mm3 (4.00-5.60); RDW 14.9 % (11.9-15.9); WHITE BLOOD COUNT 4.2 K/mm3 (4.0-10.0)
[2017-08-23 11:32] LABS: CHLORIDE 104 mmol/L (98-107); POTASSIUM 4.3 mmol/L (3.5-5.1); SODIUM 139 mmol/L (136-145)
[2017-08-23 11:57] LABS: ALBUMIN 3.3 g/dl (3.4-5.0); ANION GAP 6 (8-16); BILIRUBIN,TOTAL 0.1 mg/dL (0.2-1.0); BLOOD UREA NITROGEN 14 mg/dL (7-18); CALCIUM 8.4 mg/dL (8.5-10.1); CO2 29 mmol/L (21-32); CREATININE 1.1 mg/dL (0.7-1.3); GLUCOSE,RANDOM 79 mg/dL (74-106); SGOT/AST 8 U/L (15-37); SGPT/ALT 11 U/L (12-78)
[2017-08-23 12:13] LABS: ALK PHOS 100 U/L (45-117)
--- NOTE | 2017-08-23 12:26 | PN ---
S CIWA - CIWA Score Nausea/Vomitin Muscle Tremors: 2 Anxiety: 2 Agitation: 2 Paroxysmal Sweats: 2 Orientation: 0-Oriented Tacttile Disturbances: 1-Very Mild Itch/Numbness Auditory Disturbances: 0-None Visual Disturbances: 0-None Headache: 3-Moderate CIWA-Ar Total Score: 14 BHS Progress Note (SOAP) Subjective: Interrupted sleep, nausea, vomiting,shakes and sweats Objective: 08/23/17 12:25 Vital Signs - 8 hr 08/23/17 08/23/17 06:00 10:00 Temperature 96.6 F L 97.5 F L Pulse Rate 53 L 61 Respiratory 18 18 Rate Blood Pressure 116/74 118/86 Laboratory Last Values WBC 4.2 K/mm3 (4.0-10.0) 08/23/17 08:00 RBC 4.77 M/mm3 (4.00-5.60) 08/23/17 08:00 Hgb 12.8 GM/dL (11.7-16.9) 08/23/17 08:00 Hct 39.2 % (35.4-49) 08/23/17 08:00 MCV 82.1 fl (80-96) 08/23/17 08:00 MCH 26.9 pg (25.7-33.7) 08/23/17 08:00 MCHC 32.8 g/dl (32.0-35.9) 08/23/17 08:00 RDW 14.9 % (11.9-15.9) 08/23/17 08:00 Plt Count 192 K/MM3 (134-434) D 08/23/17 08:00 MPV 9.2 fl (7.5-11.1) 08/23/17 08:00 Urine Color Yellow 08/22/17 23:35 Urine Appearance Clear 08/22/17 23:35 Urine pH 7.0 (5.0-8.0) D 08/22/17 23:35 Ur Specific [place] 1.018 (1.001-1.035) 08/22/17 23:35 Urine Protein Negative (NEGATIVE) 08/22/17 23:35 Urine Glucose (UA) Negative (NEGATIVE) 08/22/17 23:35 Urine Ketones Trace (NEGATIVE) H 08/22/17 23:35 Urine Blood Negative (NEGATIVE) 08/22/17 23:35 Urine Nitrite Negative (NEGATIVE) 08/22/17 23:35 Urine Bilirubin Negative (<2.0 mg/dL) 08/22/17 23:35 Urine Urobilinogen Negative mg/dL (0.2-1.0) 08/22/17 23:35 Ur Leukocyte Esterase Negative (NEGATIVE) 08/22/17 23:35 HIV 1&2 Antibody Screen Negative 08/23/17 08:00 HIV P24 Antigen Negative 08/23/17 08:00 UA CBC noted, CMP pending Assessment: 08/23/17 12:26 Withdrawal sx Plan: Continue detox
--- NOTE | 2017-08-23 14:33 | CONSULT ---
[facility] Psychiatric Consult - Data Date of interview: 08/23/17 Admission source: [facility] Identifying data: Readmission to [facility] for this 56 y/o AA male seeking detox treatment on for alcohol and cocaine (crack) dependence.Patient is ,a father of four,domiciled,unemployed and supported on welfare. Substance Abuse History: Confirmed by patient in this interview.See details in the current [facility] report : Smoking history: Former smoker. Have you smoked in the past 12 months: No. Aproximately how many cigarettes per day: 0. If you are a former smoker, when did you quit?: 2010. Cigars Per Day: 0. Hx Chewing Tobacco Use: No. Initiated information on smoking cessation: No. - Substance & Tx. History. Hx Alcohol Use: Yes. Hx Substance Use: Yes. Substance Use Type : Alcohol, Cocaine. Hx Substance Use Treatment: Yes. - Substances Abused. Alcohol. Route: Oral. Frequency: Daily. Amount used: VODKA. Age of first use: 19. Date of Last Use: 08/21/17. Cocaine. Route: Smoking. Frequency: Daily. Amount used: $100. Age of first use: 27. Date of Last Use: 08/22/17 Medical History: No changes in patient's medical profile since encounter of 2017 : history of cluster headaches,arthritis of left knee,past treatment for syphilis (1980),bilateral inguinal herniorraphy (1989) and orthosurgery for torn meniscus of left knee (1989). Psychiatric History: Distant history of multiple psychiatric hospitalizations ( [facility] and [facility] ).Diagnosed with Bipolar Disorder.No rehospitalization for past 20 years.Mr Saldana is still followed at [facility] in the [place] (Dr Cleveland).Prescribed abilify + lamictal + depakote + lexapro + ambien.Patient admits to absolute non- adherence to medications for " a few weeks." Remote history of suicide attempts (wrist-cutting 10 years ago + overdose with medications at the of mother 20 years ago). Physical/Sexual Abuse/Trauma History: No history of abuse. Additional Comment: Urine Drug Screen Results: RONNIE-Cocaine.Noted. Mental Status Exam - Mental Status Exam Alert and Oriented to: Time, Place, Person Cognitive Function: Good Patient Appearance: Well Groomed Mood: Hopeful, Euthymic Affect: Appropriate, Normal Range Patient Behavior: Fatigued, Appropriate, Cooperative (friendly and pleasant) Speech Pattern: Clear, Appropriate Voice Loudness: Normal Thought Process: Intact, Goal Oriented Thought Disorder: Not Present Hallucinations: Denies Suicidal Ideation: Denies Homicidal Ideation: Denies Insight/Judgement: Poor Sleep: Poorly, Difficulty falling asleep Appetite: Good Muscle strength/Tone: Normal Gait/Station: Normal Psychiatric Findings - Problem List (Stella 1, 2,3) (1) Alcohol dependence with uncomplicated withdrawal Current Visit: Yes Status: Acute (2) Cocaine dependence Current Visit: Yes Status: Acute (3) Substance induced mood disorder Current Visit: Yes Status: Acute (4) Bipolar II disorder Current Visit: Yes Status: Chronic (5) Insomnia Current Visit: Yes Status: Acute - Initial Treatment Plan Initial Treatment Plan: Psychoeducation provided.Sleep hygiene discussed.Detoxification in progress.Medications will be restarted at much reduced doses : abilify 10 mg po daily + depakote 500 mg po bid + lexapro 20 mg po daily + ambien 5 mg po hs prn.Lamotrigine is withdrawn.Side effects/benefits of each drug are discussed with the patient.Mr Saldana has expressed his agreement to this careplan.Observation.Valproic acid level is pending.Will follow.
[2017-08-23 16:09] LABS: RPR NONREACTIVE (NONREACTIVE)
[2017-08-23] MEDS: THIAMINE HCL 100 MG TABLET (FP) PO SCH (22:27)
[2017-08-23] MEDS: DIVALPROEX SODIUM 500 MG TABLET E.C. PO SCH (22:27)
[2017-08-23] MEDS: ZOLPIDEM TARTRATE 5 MG TABLET PO PRN (22:29)
[2017-08-24] MEDS: chlordiazePOXIDE HCL 25 MG CAPSULE PO SCH ×3 (06:05→18:23)
[2017-08-24] MEDS: PRENATAL VITAMINS W/ FOLIC ACID TABLET (FP) PO SCH (11:01)
[2017-08-24] MEDS: ESCITALOPRAM OXALATE 20 MG TABLET (FP) PO SCH (11:01)
[2017-08-24] MEDS: DIVALPROEX SODIUM 500 MG TABLET E.C. PO SCH ×2 (11:01→22:35)
[2017-08-24] MEDS: ARIPiprazole 10 MG TABLET PO SCH (11:02)
--- NOTE | 2017-08-24 12:50 | PN ---
S CIWA - CIWA Score Nausea/Vomitin-Mild Nausea/No Vomiting Muscle Tremors: 3 Anxiety: 3 Agitation: 3 Paroxysmal Sweats: 1-Minimal Palms Moist Orientation: 0-Oriented Tacttile Disturbances: 1-Very Mild Itch/Numbness Auditory Disturbances: 0-None Visual Disturbances: 0-None Headache: 0-None Present CIWA-Ar Total Score: 12 BHS Progress Note (SOAP) Subjective: sweat tremor anxiety restlessness Objective: 08/24/17 12:48 Vital Signs Temperature 99.0 F 08/24/17 10:00 Pulse Rate 75 08/24/17 10:00 Respiratory Rate 18 08/24/17 10:00 Blood Pressure 128/85 08/24/17 10:00 O2 Sat by Pulse Oximetry (%) Laboratory Last Values WBC 4.2 K/mm3 (4.0-10.0) 08/23/17 08:00 RBC 4.77 M/mm3 (4.00-5.60) 08/23/17 08:00 Hgb 12.8 GM/dL (11.7-16.9) 08/23/17 08:00 Hct 39.2 % (35.4-49) 08/23/17 08:00 MCV 82.1 fl (80-96) 08/23/17 08:00 MCH 26.9 pg (25.7-33.7) 08/23/17 08:00 MCHC 32.8 g/dl (32.0-35.9) 08/23/17 08:00 RDW 14.9 % (11.9-15.9) 08/23/17 08:00 Plt Count 192 K/MM3 (134-434) D 08/23/17 08:00 MPV 9.2 fl (7.5-11.1) 08/23/17 08:00 Sodium 139 mmol/L (136-145) 08/23/17 08:00 Potassium 4.3 mmol/L (3.5-5.1) 08/23/17 08:00 Chloride 104 mmol/L (98-107) 08/23/17 08:00 Carbon Dioxide 29 mmol/L (21-32) 08/23/17 08:00 Anion Gap 6 (8-16) L 08/23/17 08:00 BUN 14 mg/dL (7-18) 08/23/17 08:00 Creatinine 1.1 mg/dL (0.7-1.3) 08/23/17 08:00 Creat Clearance w eGFR > 60 (>60) 08/23/17 08:00 Random Glucose 79 mg/dL (74-106) 08/23/17 08:00 Calcium 8.4 mg/dL (8.5-10.1) L 08/23/17 08:00 Total Bilirubin 0.1 mg/dL (0.2-1.0) L D 08/23/17 08:00 AST 8 U/L (15-37) L D 08/23/17 08:00 ALT 11 U/L (12-78) L D 08/23/17 08:00 Alkaline Phosphatase 100 U/L (45-117) 08/23/17 08:00 Total Protein 7.0 g/dl (6.4-8.2) 08/23/17 08:00 Albumin 3.3 g/dl (3.4-5.0) L 08/23/17 08:00 Urine Color Yellow 08/22/17 23:35 Urine Appearance Clear 08/22/17 23:35 Urine pH 7.0 (5.0-8.0) D 08/22/17 23:35 Ur Specific [place] 1.018 (1.001-1.035) 08/22/17 23:35 Urine Protein Negative (NEGATIVE) 08/22/17 23:35 Urine Glucose (UA) Negative (NEGATIVE) 08/22/17 23:35 Urine Ketones Trace (NEGATIVE) H 08/22/17 23:35 Urine Blood Negative (NEGATIVE) 08/22/17 23:35 Urine Nitrite Negative (NEGATIVE) 08/22/17 23:35 Urine Bilirubin Negative (<2.0 mg/dL) 08/22/17 23:35 Urine Urobilinogen Negative mg/dL (0.2-1.0) 08/22/17 23:35 Ur Leukocyte Esterase Negative (NEGATIVE) 08/22/17 23:35 Valproic Acid 70.989 ug/ml (50-100) 08/24/17 07:30 RPR Titer Nonreactive (NONREACTIVE) 08/23/17 08:00 Hep C Ab Diagnostic <0.1 s/co ratio (0.0-0.9) 08/23/17 08:00 Liver Fibrosis Interp (.) 08/23/17 08:00 HIV 1&2 Antibody Screen Negative 08/23/17 08:00 HIV P24 Antigen Negative 08/23/17 08:00 lab noted Assessment: 08/24/17 12:49 withdrawal sx Plan: continue detox
[2017-08-24] MEDS: THIAMINE HCL 100 MG TABLET (FP) PO SCH (22:35)
[2017-08-24] MEDS: chlordiazePOXIDE 5 MG CAPSULE PO SCH (22:35)
[2017-08-24] MEDS: ZOLPIDEM TARTRATE 5 MG TABLET PO PRN (22:35)
[2017-08-25] MEDS: chlordiazePOXIDE 5 MG CAPSULE PO SCH ×3 (05:42→17:51)
[2017-08-25] MEDS ORDERED: COLLOIDAL OATMEAL 1 BAR EACH TP PRN (10:37)
[2017-08-25] MEDS: ESCITALOPRAM OXALATE 20 MG TABLET (FP) PO SCH (11:03)
[2017-08-25] MEDS: DIVALPROEX SODIUM 500 MG TABLET E.C. PO SCH ×2 (11:03→22:16)
[2017-08-25] MEDS: PRENATAL VITAMINS W/ FOLIC ACID TABLET (FP) PO SCH (11:03)
[2017-08-25] MEDS: ARIPiprazole 10 MG TABLET PO SCH (11:03)
--- NOTE | 2017-08-25 12:32 | PN ---
S Progress Note (SOAP) Subjective: ALERT,IRRITABLE,INTERRUPTED SLEEP, Objective: 08/25/17 12:31 Vital Signs Temperature 98.1 F 08/25/17 10:01 Pulse Rate 72 08/25/17 10:01 Respiratory Rate 20 08/25/17 10:01 Blood Pressure 128/80 08/25/17 10:01 O2 Sat by Pulse Oximetry (%) Assessment: 08/25/17 12:31 WITHDRAWAL SYMPTOM Plan: CONTINUE DETOX,DISCHARGE IN AM
[2017-08-25] MEDS: AMMONIUM LACTATE 12% LOTION 225 GM BOTTLE TP SCH (22:16)
[2017-08-25] MEDS: chlordiazePOXIDE HCL 10 MG CAPSULE PO SCH (22:16)
[2017-08-25] MEDS: ZOLPIDEM TARTRATE 5 MG TABLET PO PRN (22:16)
[2017-08-25] MEDS: THIAMINE HCL 100 MG TABLET (FP) PO SCH (22:16)
[2017-08-26] MEDS: chlordiazePOXIDE HCL 10 MG CAPSULE PO SCH ×2 (05:39→10:52)
--- NOTE | 2017-08-26 08:37 | PN ---
S Progress Note (SOAP) Subjective: ALERT,NO COMPLAINT Objective: 08/26/17 08:35 Vital Signs Temperature 97.2 F L 08/26/17 06:20 Pulse Rate 56 L 08/26/17 06:20 Respiratory Rate 16 08/26/17 06:20 Blood Pressure 99/63 08/26/17 06:20 O2 Sat by Pulse Oximetry (%) Assessment: 08/26/17 08:36 DETOX COMPLETED,NO WITHDRAWAL SYMPTOM Plan: TRANSFER TO [facility] FOR FURTHER LEVEL OF CARE
--- NOTE | 2017-08-26 08:40 | DS ---
[facility] Detox Discharge Summary Admission Date: 08/22/17 Discharge Date: 08/26/17 - History Present History: Alcohol Dependence, Cocaine Dependence Additional Comments: TRANSFER TO REHAB FOR FURTHER LEVEL OF CARE Pertinent Past History: WEIGHT LOSS - Physical Exam Results Vital Signs: Vital Signs Temperature 97.2 F L 08/26/17 06:20 Pulse Rate 56 L 08/26/17 06:20 Respiratory Rate 16 08/26/17 06:20 Blood Pressure 99/63 08/26/17 06:20 O2 Sat by Pulse Oximetry (%) Pertinent Admission Physical Exam Findings: WITHDRAWAL SIGNS AND SYMPTOM Vital Signs Temperature 97.2 F L 08/26/17 06:20 Pulse Rate 56 L 08/26/17 06:20 Respiratory Rate 16 08/26/17 06:20 Blood Pressure 99/63 08/26/17 06:20 O2 Sat by Pulse Oximetry (%) Laboratory Last Values WBC 4.2 K/mm3 (4.0-10.0) 08/23/17 08:00 RBC 4.77 M/mm3 (4.00-5.60) 08/23/17 08:00 Hgb 12.8 GM/dL (11.7-16.9) 08/23/17 08:00 Hct 39.2 % (35.4-49) 08/23/17 08:00 MCV 82.1 fl (80-96) 08/23/17 08:00 MCH 26.9 pg (25.7-33.7) 08/23/17 08:00 MCHC 32.8 g/dl (32.0-35.9) 08/23/17 08:00 RDW 14.9 % (11.9-15.9) 08/23/17 08:00 Plt Count 192 K/MM3 (134-434) D 08/23/17 08:00 MPV 9.2 fl (7.5-11.1) 08/23/17 08:00 Sodium 139 mmol/L (136-145) 08/23/17 08:00 Potassium 4.3 mmol/L (3.5-5.1) 08/23/17 08:00 Chloride 104 mmol/L (98-107) 08/23/17 08:00 Carbon Dioxide 29 mmol/L (21-32) 08/23/17 08:00 Anion Gap 6 (8-16) L 08/23/17 08:00 BUN 14 mg/dL (7-18) 08/23/17 08:00 Creatinine 1.1 mg/dL (0.7-1.3) 08/23/17 08:00 Creat Clearance w eGFR > 60 (>60) 08/23/17 08:00 Random Glucose 79 mg/dL (74-106) 08/23/17 08:00 Calcium 8.4 mg/dL (8.5-10.1) L 08/23/17 08:00 Total Bilirubin 0.1 mg/dL (0.2-1.0) L D 08/23/17 08:00 AST 8 U/L (15-37) L D 08/23/17 08:00 ALT 11 U/L (12-78) L D 08/23/17 08:00 Alkaline Phosphatase 100 U/L (45-117) 08/23/17 08:00 Total Protein 7.0 g/dl (6.4-8.2) 08/23/17 08:00 Albumin 3.3 g/dl (3.4-5.0) L 08/23/17 08:00 Urine Color Yellow 08/22/17 23:35 Urine Appearance Clear 08/22/17 23:35 Urine pH 7.0 (5.0-8.0) D 08/22/17 23:35 Ur Specific [place] 1.018 (1.001-1.035) 08/22/17 23:35 Urine Protein Negative (NEGATIVE) 08/22/17 23:35 Urine Glucose (UA) Negative (NEGATIVE) 08/22/17 23:35 Urine Ketones Trace (NEGATIVE) H 08/22/17 23:35 Urine Blood Negative (NEGATIVE) 08/22/17 23:35 Urine Nitrite Negative (NEGATIVE) 08/22/17 23:35 Urine Bilirubin Negative (<2.0 mg/dL) 08/22/17 23:35 Urine Urobilinogen Negative mg/dL (0.2-1.0) 08/22/17 23:35 Ur Leukocyte Esterase Negative (NEGATIVE) 08/22/17 23:35 Valproic Acid 70.989 ug/ml (50-100) 08/24/17 07:30 RPR Titer Nonreactive (NONREACTIVE) 08/23/17 08:00 Hep C Ab Diagnostic <0.1 s/co ratio (0.0-0.9) 08/23/17 08:00 Liver Fibrosis Interp (.) 08/23/17 08:00 HIV 1&2 Antibody Screen Negative 08/23/17 08:00 HIV P24 Antigen Negative 08/23/17 08:00 - Treatment Hospital Course: Detox Protocol Followed, Detoxed Safely, Responded well, Rehab Referral Accepted Patient has Accepted a Rehab Referral to: [facility] - Medication Discharge Medications: Ambulatory Orders Aripiprazole [Abilify -] 30 mg PO HS #30 tablet 07/21/17 Divalproex [Depakote -] 500 mg PO BID #60 tablet.ec 07/21/17 Escitalopram Oxalate [Lexapro -] 20 mg PO DAILY #30 tablet 07/21/17 Lamotrigine [Lamictal -] 25 mg PO BID #60 tablet 07/21/17 - Diagnosis (1) Alcohol dependence with uncomplicated withdrawal Current Visit: Yes Status: Acute (2) Cocaine dependence Current Visit: Yes Status: Acute (3) Weight loss Current Visit: Yes Status: Acute
[2017-08-26 10:45] VITALS: BP 130/83; PULSE 64; TEMP 97.7
[2017-08-26] MEDS: AMMONIUM LACTATE 12% LOTION 225 GM BOTTLE TP SCH (10:52)
[2017-08-26] MEDS: ESCITALOPRAM OXALATE 20 MG TABLET (FP) PO SCH (10:52)
[2017-08-26] MEDS: DIVALPROEX SODIUM 500 MG TABLET E.C. PO SCH (10:52)
[2017-08-26] MEDS: ARIPiprazole 10 MG TABLET PO SCH (10:52)
[2017-08-26] MEDS: PRENATAL VITAMINS W/ FOLIC ACID TABLET (FP) PO SCH (10:52)
== END 2017-08-26 11:55 | disposition home or self-care (01) | DRG 897 ==
LOC: YASAS 10:36 → Y6N 17:33
PROVIDERS: ADMIT Internal Medicine; ATTEND Internal Medicine
PROC: HZ2ZZZZ Detoxification Services for Substance Abuse Treatment (ICD-10-PCS; principal; 2017-08-22)
DX: F10.230 Alcohol dependence with withdrawal, uncomplicated (principal); F14.20 Cocaine dependence, uncomplicated; F31.81 Bipolar II disorder; F19.24 Other psychoactive substance dependence with psychoactive substance-induced mood disorder; G47.00 Insomnia, unspecified; M25.472 Effusion, left ankle; R63.4 Abnormal weight loss; Z68.29 Body mass index [BMI] 29.0-29.9, adult
CPT/HCPCS: 36415; 80053; 80164; 81003; 85027; 86593; 87389; 93005; 93010

== ENCOUNTER 2017-10-23 09:53 | Inpatient (IN) | payer OTHER ==
[2017-10-23 10:31] VITALS: BMI 31.0
--- NOTE | 2017-10-23 12:52 | HP ---
CIWA Score - CIWA Score Nausea/Vomitin Muscle Tremors: 3 Anxiety: 3 Agitation: 3 Paroxysmal Sweats: 1-Minimal Palms Moist Orientation: 0-Oriented Tacttile Disturbances: 2-Mild Itch/Numbness/Burn Auditory Disturbances: 2-Mild Harshness/Frighten Visual Disturbances: 0-None Headache: 2-Mild CIWA-Ar Total Score: 19 Admission ROS BHS - HPI Chief Complaint: i need help to stop drinking alcohol,cocaine and marijuana Allergies/Adverse Reactions: Allergies Allergy/AdvReac Type Severity Reaction Status Date / Time No Known Allergies Allergy Verified 10/23/17 11:06 History of Present Illness: this 56 years old male with alcohol,cocaine and marijuana dependence,seeking detox,withdrawal symptom,last detox [facility] 08/22/17 to 10/26/17 arthritis both knees bipolar disorder manic depressive weight loss longest period of sobriety 5 years Exam Limitations: No Limitations - Ebola screening Have you traveled outside of the country in the last 21 days: No (N) Have you had contact with anyone from an Ebola affected area: No Have you been sick,other than usual withdrawal symptoms: No Do you have a fever: No - Review of Systems Constitutional: Loss of Appetite, Malaise, Night Sweats, Changes in sleep, Weakness, Unintentional Wgt. Loss EENT: reports: Tearing, Nose Congestion Respiratory: reports: No Symptoms reported Cardiac: reports: No Symptoms Reported GI: reports: Diarrhea, Nausea, Vomiting, Abdominal cramping : reports: No Symptoms Reported Musculoskeletal: reports: Back Pain, Muscle Pain Integumentary: reports: Dryness Neuro: reports: Headache, Tremors Endocrine: reports: No Symptoms Reported Hematology: reports: No Symptoms Reported Psychiatric: reports: No Sypmtoms Reported, Judgement Intact, Mood/Affect Appropiate, Agitated, Depressed (bipolar and manic depressive) Patient History - Patient Medical History Hx Anemia: No Hx Asthma: No Hx Chronic Obstructive Pulmonary Disease (COPD): No Hx Cancer: No Hx Cardiac Disorders: No Hx Congestive Heart Failure: No Hx Hypertension: No Hx Hypercholesterolemia: No Hx Pacemaker: No HX Cerebrovascular Accident: No Hx Seizures: No Hx Dementia: No Hx Diabetes: No Hx Gastrointestinal Disorders: No Hx Liver Disease: No Hx Genitourinary Disorders: No Hx Sexually Transmitted Disorders: Yes (syphilis) Hx Renal Disease (ESRD): No Hx Thyroid Disease: No Hx Human Immunodeficiency Virus (HIV): No (09/03 last negative) Hx Hepatitis C: No Hx Depression: Yes Hx Suicide Attempt: Yes (overdose,cutter age 32) Hx Bipolar Disorder: Yes Hx Schizophrenia: No Other Medical History: no suicidal,no homicidal - Patient Surgical History Past Surgical History: Yes Hx Neurologic Surgery: No Hx Cataract Extraction: No Hx Cardiac Surgery: No Hx Lung Surgery: No Hx Breast Surgery: No Hx Breast Biopsy: No Hx Abdominal Surgery: No Hx Appendectomy: No Hx Cholecystectomy: No Hx Genitourinary Surgery: No Hx Section: No Hx Orthopedic Surgery: Yes (torn meniscus, left knee in 2005) Other Surgical History: bilateral inguinal hernia repair in 1989 Anesthesia Reaction: No - PPD History Previous Implant?: Yes Documented Results: Negative w/proof Implanted On Prior [facility] Admission?: Yes Date: 09/07/16 Results: 0 mm PPD to be Administered?: Yes - Smoking Cessation Smoking history: Former smoker Have you smoked in the past 12 months: No Aproximately how many cigarettes per day: 0 If you are a former smoker, when did you quit?: 2010 Cigars Per Day: 0 Hx Chewing Tobacco Use: No Initiated information on smoking cessation: No - Substance & Tx. History Hx Alcohol Use: Yes Hx Substance Use: Yes Substance Use Type: Alcohol, Cocaine, Marijuana Hx Substance Use Treatment: Yes ([facility] 08/22/17 to 08/26/17) - Substances Abused Crack Route: Smoking Frequency: Daily Amount used: $100 Age of first use: 27 Date of Last Use: 10/22/17 Alcohol-vodka/beer Route: Oral Frequency: Daily Amount used: 2 pts./2-6 pks. Age of first use: 18 Date of Last Use: 10/22/17 Marijuana Route: Smoking Frequency: 1-2 times per week Amount used: $5 Age of first use: 18 Date of Last Use: 10/23/17 Family Disease History - Family Disease History Family Disease History: [place]: Father (PROSTRATE [place]-), Mother (UTERINE [place]- ), Sister () Admission Physical Exam BHS - Vital Signs Vital Signs: Vital Signs - 24 hr 10/23/17 10:25 Temperature 98.8 F Pulse Rate 65 Respiratory 18 Rate Blood Pressure 130/87 - Physical General Appearance: Yes: Moderate Distress, Tremorous, Irritable, Sweating, Anxious HEENTM: Yes: Normal ENT Inspection, MATTHIEU, Pharynx Normal Respiratory: Yes: Lungs Clear, Normal Breath Sounds, No Respiratory Distress Neck: Yes: Within Normal Limits, Supple, Trachea in good position Breast: Yes: Within Normal Limits Cardiology: Yes: Within Normal Limits, Regular Rhythm, Regular Rate, S1, S2 Abdominal: Yes: Within Normal Limits, Normal Bowel Sounds, Non Tender, Soft Genitourinary: Yes: Within Normal Limits Back: Yes: Muscle Spasm Musculoskeletal: Yes: Within Normal Limits, full range of Motion, Back pain Extremities: Yes: Within Normal Limits, Normal Range of Motion, Tremors Neurological: Yes: support merchandiser II-XII NML intact, Alert, Motor Strength 5/5 Integumentary: Yes: Dry Lymphatic: Yes: Within Normal Limits - Diagnostic (1) Alcohol dependence with uncomplicated withdrawal Current Visit: Yes Status: Acute (2) Cannabis dependence Current Visit: Yes Status: Acute (3) Cocaine dependence with withdrawal Current Visit: No Status: Acute (4) Weight loss Current Visit: No Status: Acute (5) Bipolar II disorder Current Visit: Yes Status: Chronic Cleared for Admission [facility] - Detox or Rehab [facility] Level of Care: Medically Managed Detox Regimen/Protocol: Librium [facility] Breath Alcohol Content Breath Alcohol Content: 0 Urine Drug Screen - Results Drug Screen Negative: No Urine Drug Screen Results: THC-Marijuana, RONNIE-Cocaine
[2017-10-23] MEDS ORDERED: hydrOXYzine PAMOATE 50 MG CAPSULE (FP) PO PRN (13:04)
[2017-10-23] MEDS ORDERED: guaiFENesin/D-METHORPHAN HB 10 ML UNIT-DOSE CUPS PO PRN (13:04)
[2017-10-23] MEDS ORDERED: IBUPROFEN 400 MG TABLET (FP) PO PRN (13:04)
[2017-10-23] MEDS ORDERED: ACETAMINOPHEN 325 MG TABLET (FP) PO PRN (13:04)
[2017-10-23] MEDS ORDERED: MAGNESIUM CITRATE 300 ML BOTTLE PO PRN (13:04)
[2017-10-23] MEDS ORDERED: chlordiazePOXIDE HCL 25 MG CAPSULE PO PRN (13:04)
[2017-10-23] MEDS ORDERED: MAG HYDROX/AL HYDROX/SIMETH 30 ML UNIT-DOSE CUP PO PRN (13:04)
[2017-10-23] MEDS ORDERED: MENTHOL/PHENOL 1 EACH UD MM PRN (13:04)
[2017-10-23] MEDS ORDERED: LOPERAMIDE HCL 2 MG CAPSULE PO PRN (13:04)
[2017-10-23] MEDS ORDERED: MAGNESIUM HYDROX 2400MG/30ML ORAL SUSPENSION 30 ML CUP PO PRN (13:04)
[2017-10-23] MEDS ORDERED: P-EPHED 60MG/TRIPROLIDI 2.5MG TABLET PO PRN (13:04)
[2017-10-23] MEDS ORDERED: chlordiazePOXIDE HCL 25 MG CAPSULE PO ONE (13:45)
--- NOTE | 2017-10-23 15:49 | CONSULT ---
[facility] Psychiatric Consult - Data Date of interview: 10/23/17 Admission source: [facility] Identifying data: Patient is a 56 year old male, divorce, father of four, unemployed, domiciled, and supported by public assistance. This is one of multiple admissions for patient. Pt. admitted to for alcohol, cocaine and marijuana dependence. Substance Abuse History: Smoking Cessation. Smoking history: Former smoker. Have you smoked in the past 12 months: No. Aproximately how many cigarettes per day: 0. If you are a former smoker, when did you quit?: 2010. Cigars Per Day: 0. Hx Chewing Tobacco Use: No. Initiated information on smoking cessation : No. - Substance & Tx. History. Hx Alcohol Use: Yes. Hx Substance Use: Yes. Substance Use Type: Alcohol, Cocaine, Marijuana. Hx Substance Use Treatment: Yes ([facility] 08/22/17 to 08/26/17). - Substances Abused. Crack. Route: Smoking. Frequency: Daily. Amount used: $100. Age of first use: 27. Date of Last Use: 10/22/17. Alcohol-vodka/beer. Route: Oral. Frequency: Daily. Amount used: 2 pts./2-6 pks. Age of first use: 18. Date of Last Use: . Marijuana. Route: Smoking. Frequency: 1-2 times per week. Amount used : $5. Age of first use: 18. Date of Last Use: 10/23/17 Medical History: torn meniscus left knee surgery in 2005, Bilteral inguinal hernia repair in 1989. Psychiatric History: Patient's first psychiatric hospitalization was in his mid 20's at [facility] after a suicide attempt via overdose. Reports a subsequent admission a few years later after his second suicide attempt via cutting his wrist. No hospitalizations in approximately 20 years. OPD is provided by [facility] known as [facility]. Diagnosis of Bipolar disorder and is prescribed depakote 500mg BID + Lamictal 150mg BID + abilify 30mg + Lexapro 20mg. Pt. reports nonadherence for approximately one week. Physical/Sexual Abuse/Trauma History: Denies. Mental Status Exam - Mental Status Exam Alert and Oriented to: Time, Place, Person Cognitive Function: Good Patient Appearance: Well Groomed Mood: Hopeful Affect: Mood Congruent Patient Behavior: Appropriate, Cooperative Speech Pattern: Clear, Appropriate Voice Loudness: Normal Thought Process: Intact, Goal Oriented Thought Disorder: Not Present Hallucinations: Denies Suicidal Ideation: Denies Homicidal Ideation: Denies Insight/Judgement: Poor Sleep: Poorly Appetite: Fair Muscle strength/Tone: Normal Gait/Station: Normal Psychiatric Findings - Problem List ([place] 1, 2,3) (1) Cannabis dependence Current Visit: Yes Status: Acute (2) Alcohol dependence with uncomplicated withdrawal Current Visit: Yes Status: Acute (3) Cocaine dependence Current Visit: Yes Status: Chronic (4) Bipolar II disorder Current Visit: Yes Status: Chronic (5) Insomnia Current Visit: Yes Status: Acute - Initial Treatment Plan Initial Treatment Plan: Psychoeducation provided. Detoxification in progress. Depakote 500mg BID + Abilify 20mg + Lamicatal 25mg BID + Lexapro 20mg + Ambien 5mg qhs. Will order Valproic acid level. Benefits and side effects discussed. Verbal consent given. Will continue to monitor.
[2017-10-23] MEDS: chlordiazePOXIDE HCL 25 MG CAPSULE PO SCH ×2 (17:20→22:12)
[2017-10-23 17:58] LABS: URINE APPEARANCE CLEAR; URINE BILIRUBIN NEGATIVE (<2.0 mg/dL); URINE BLOOD NEGATIVE (NEGATIVE); URINE COLOR LTYELLOW; URINE GLUCOSE (UA) NEGATIVE (NEGATIVE); URINE KETONE NEGATIVE (NEGATIVE); URINE LEUK ESTERASE NEGATIVE (NEGATIVE); URINE NITRITE NEGATIVE (NEGATIVE); URINE PROTEIN NEGATIVE (NEGATIVE); URINE UROBILINOGEN NEGATIVE mg/dL (0.2-1.0)
[2017-10-23] MEDS ORDERED: MELATONIN 5 MG TABLETS PO PRN (22:00)
[2017-10-23] MEDS: lamoTRIgine 25 MG TABLET PO SCH (22:13)
[2017-10-23] MEDS: ZOLPIDEM TARTRATE 5 MG TABLET PO PRN (22:13)
[2017-10-23] MEDS: DIVALPROEX SODIUM 500 MG TABLET E.C. PO SCH (22:13)
[2017-10-23] MEDS: THIAMINE HCL 100 MG TABLET (FP) PO SCH (22:13)
[2017-10-24] MEDS: chlordiazePOXIDE HCL 25 MG CAPSULE PO SCH ×4 (05:38→22:24)
[2017-10-24] MEDS: DIVALPROEX SODIUM 500 MG TABLET E.C. PO SCH ×2 (10:12→22:24)
[2017-10-24] MEDS: lamoTRIgine 25 MG TABLET PO SCH ×2 (10:12→22:24)
[2017-10-24] MEDS: ARIPiprazole 10 MG TABLET PO SCH (10:12)
[2017-10-24] MEDS: ESCITALOPRAM OXALATE 20 MG TABLET (FP) PO SCH (10:12)
[2017-10-24] MEDS: PRENATAL VITAMINS W/ FOLIC ACID TABLET (FP) PO SCH (10:12)
[2017-10-24 10:31] LABS: HEMATOCRIT 41.5 % (35.4-49); HEMOGLOBIN 13.5 GM/dL (11.7-16.9); MCH 27.4 pg (25.7-33.7); MCHC 32.6 g/dl (32.0-35.9); MEAN CELL VOLUME 84.1 fl (80-96); RBC 4.94 M/mm3 (4.00-5.60); RDW 15.1 % (11.9-15.9); WHITE BLOOD COUNT 6.1 K/mm3 (4.0-10.0)
[2017-10-24 10:43] LABS: CHLORIDE 101 mmol/L (98-107); POTASSIUM 4.9 mmol/L (3.5-5.1); SODIUM 135 mmol/L (136-145)
--- NOTE | 2017-10-24 10:50 | EKG ---
Test Reason : Blood Pressure : / mmHG Vent. Rate : 059 BPM Atrial Rate : 059 BPM P-R Int : 138 ms QRS Dur : 086 ms QT Int : 416 ms P-R-T Axes : 068 -08 -36 degrees QTc Int : 411 ms SINUS BRADYCARDIA ANTEROSEPTAL INFARCT (CITED ON OR BEFORE 05-SEP-2016) ABNORMAL ECG WHEN COMPARED WITH ECG OF 22-AUG-2017 18:49, NO SIGNIFICANT CHANGE WAS FOUND Confirmed by DENIS MCBRIDE MD ([id number]) on 10/24/2017 10:50:02 AM Referred By: Confirmed By:DENIS MCBRIDE MD
[2017-10-24 11:02] LABS: ALK PHOS 110 U/L (45-117); ANION GAP 4 (8-16); BILIRUBIN,TOTAL 0.3 mg/dL (0.2-1.0); BLOOD UREA NITROGEN 11 mg/dL (7-18); CALCIUM 9.1 mg/dL (8.5-10.1); CO2 30 mmol/L (21-32); CREATININE 1.2 mg/dL (0.7-1.3); GLUCOSE,RANDOM 105 mg/dL (74-106); SGOT/AST 11 U/L (15-37); SGPT/ALT 19 U/L (12-78); TOT PROT 8.4 g/dl (6.4-8.2)
--- NOTE | 2017-10-24 12:57 | PN ---
[facility] CIWA - CIWA Score Nausea/Vomitin-No Nausea/No Vomiting Muscle Tremors: None Anxiety: 4-Mod. Anxious/Guarded Agitation: 2 Paroxysmal Sweats: No Perspiration Orientation: 0-Oriented Tacttile Disturbances: 2-Mild Itch/Numbness/Burn Auditory Disturbances: 2-Mild Harshness/Frighten Visual Disturbances: 2-Mild Sensitivity Headache: 4-Moderately Severe CIWA-Ar Total Score: 16 S Progress Note (SOAP) Subjective: Body Aches, H/A, Fatigue, Anxious. Objective: PATIENT A & O X 3, OBSERVED AMBULATING ON UNIT. NO ACUTE DISTRESS. 10/24/17 12:56 Vital Signs Temperature 98.4 F 10/24/17 09:07 Pulse Rate 72 10/24/17 09:07 Respiratory Rate 18 10/24/17 09:07 Blood Pressure 131/78 10/24/17 09:07 O2 Sat by Pulse Oximetry (%) Laboratory Tests 10/23/17 10/24/17 10/24/17 17:26 06:00 06:00 WBC 6.1 D RBC 4.94 Hgb 13.5 Hct 41.5 MCV 84.1 MCH 27.4 MCHC 32.6 RDW 15.1 Plt Count No Result Required. Platelet Comment Mod plt clumping Sodium 135 L Potassium 4.9 Chloride 101 Carbon Dioxide 30 Anion Gap 4 L BUN 11 D Creatinine 1.2 Creat Clearance w eGFR > 60 Random Glucose 105 D Calcium 9.1 Total Bilirubin 0.3 D AST 11 L D ALT 19 D Alkaline Phosphatase 110 Total Protein 8.4 H Albumin 4.0 D Urine Color Ltyellow Urine Appearance Clear Urine pH 6.0 Ur Specific [place] 1.012 Urine Protein Negative Urine Glucose (UA) Negative Urine Ketones Negative Urine Blood Negative Urine Nitrite Negative Urine Bilirubin Negative Urine Urobilinogen Negative Ur Leukocyte Esterase Negative Valproic Acid RPR Titer 10/24/17 10/24/17 06:00 06:00 WBC RBC Hgb Hct MCV MCH MCHC RDW Plt Count Platelet Comment Sodium Potassium Chloride Carbon Dioxide Anion Gap BUN Creatinine Creat Clearance w eGFR Random Glucose Calcium Total Bilirubin AST ALT Alkaline Phosphatase Total Protein Albumin Urine Color Urine Appearance Urine pH Ur Specific [place] Urine Protein Urine Glucose (UA) Urine Ketones Urine Blood Urine Nitrite Urine Bilirubin Urine Urobilinogen Ur Leukocyte Esterase Valproic Acid < 3.0 L RPR Titer Nonreactive LABS NOTED. Assessment: 10/24/17 12:56 WITHDRAWAL SYMPTOMS. Plan: CONTINUE DETOX.
[2017-10-24] MEDS: THIAMINE HCL 100 MG TABLET (FP) PO SCH (22:24)
[2017-10-24] MEDS: ZOLPIDEM TARTRATE 5 MG TABLET PO PRN (22:27)
[2017-10-25] MEDS: chlordiazePOXIDE HCL 25 MG CAPSULE PO SCH ×2 (05:21→10:19)
[2017-10-25] MEDS: ARIPiprazole 10 MG TABLET PO SCH (10:19)
[2017-10-25] MEDS: ESCITALOPRAM OXALATE 20 MG TABLET (FP) PO SCH (10:19)
[2017-10-25] MEDS: lamoTRIgine 25 MG TABLET PO SCH ×2 (10:19→22:24)
[2017-10-25] MEDS: PRENATAL VITAMINS W/ FOLIC ACID TABLET (FP) PO SCH (10:19)
[2017-10-25] MEDS: DIVALPROEX SODIUM 500 MG TABLET E.C. PO SCH ×2 (10:19→22:23)
--- NOTE | 2017-10-25 16:35 | PN ---
[facility] CIWA - CIWA Score Nausea/Vomitin-No Nausea/No Vomiting Muscle Tremors: 2 Anxiety: 3 Agitation: 0-Normal Activity Paroxysmal Sweats: 2 Orientation: 0-Oriented Tacttile Disturbances: 2-Mild Itch/Numbness/Burn Auditory Disturbances: 1-Very Mild Visual Disturbances: 2-Mild Sensitivity Headache: 0-None Present CIWA-Ar Total Score: 12 BHS Progress Note (SOAP) Subjective: Body Aches, Anxious, Fatigue. Objective: PATIENT A & O X 3, OBSERVED AMBULATING ON UNIT. NO ACUTE DISTRESS. 10/25/17 16:33 Vital Signs Temperature 97.1 F L 10/25/17 13:43 Pulse Rate 79 10/25/17 13:43 Respiratory Rate 18 10/25/17 13:43 Blood Pressure 128/86 10/25/17 13:43 O2 Sat by Pulse Oximetry (%) Laboratory Tests 10/23/17 10/24/17 10/24/17 17:26 06:00 06:00 WBC 6.1 D RBC 4.94 Hgb 13.5 Hct 41.5 MCV 84.1 MCH 27.4 MCHC 32.6 RDW 15.1 Plt Count No Result Required. Platelet Comment Mod plt clumping Sodium 135 L Potassium 4.9 Chloride 101 Carbon Dioxide 30 Anion Gap 4 L BUN 11 D Creatinine 1.2 Creat Clearance w eGFR > 60 Random Glucose 105 D Calcium 9.1 Total Bilirubin 0.3 D AST 11 L D ALT 19 D Alkaline Phosphatase 110 Total Protein 8.4 H Albumin 4.0 D Urine Color Ltyellow Urine Appearance Clear Urine pH 6.0 Ur Specific [place] 1.012 Urine Protein Negative Urine Glucose (UA) Negative Urine Ketones Negative Urine Blood Negative Urine Nitrite Negative Urine Bilirubin Negative Urine Urobilinogen Negative Ur Leukocyte Esterase Negative Valproic Acid RPR Titer 10/24/17 10/24/17 06:00 06:00 WBC RBC Hgb Hct MCV MCH MCHC RDW Plt Count Platelet Comment Sodium Potassium Chloride Carbon Dioxide Anion Gap BUN Creatinine Creat Clearance w eGFR Random Glucose Calcium Total Bilirubin AST ALT Alkaline Phosphatase Total Protein Albumin Urine Color Urine Appearance Urine pH Ur Specific [place] Urine Protein Urine Glucose (UA) Urine Ketones Urine Blood Urine Nitrite Urine Bilirubin Urine Urobilinogen Ur Leukocyte Esterase Valproic Acid < 3.0 L RPR Titer Nonreactive LABS NOTED. Assessment: 10/25/17 16:34 WITHDRAWAL SYMPTOMS. Plan: CONTINUE DETOX.
[2017-10-25] MEDS: chlordiazePOXIDE 5 MG CAPSULE PO SCH ×2 (17:22→22:24)
[2017-10-25] MEDS: THIAMINE HCL 100 MG TABLET (FP) PO SCH (22:24)
[2017-10-25] MEDS: ZOLPIDEM TARTRATE 5 MG TABLET PO PRN (22:27)
[2017-10-26] MEDS: chlordiazePOXIDE 5 MG CAPSULE PO SCH ×2 (05:10→10:13)
[2017-10-26] MEDS: ARIPiprazole 10 MG TABLET PO SCH (10:13)
[2017-10-26] MEDS: PRENATAL VITAMINS W/ FOLIC ACID TABLET (FP) PO SCH (10:13)
[2017-10-26] MEDS: DIVALPROEX SODIUM 500 MG TABLET E.C. PO SCH ×2 (10:13→22:11)
[2017-10-26] MEDS: ESCITALOPRAM OXALATE 20 MG TABLET (FP) PO SCH (10:13)
[2017-10-26] MEDS: lamoTRIgine 25 MG TABLET PO SCH ×2 (10:13→22:11)
--- NOTE | 2017-10-26 12:02 | PN ---
[facility] Progress Note (SOAP) Subjective: ANXIETY,SWEATS,TREMORS,BODY ACHES, HEADACHES- STATES HX MIGRAINES AND TAKES IMITREX. Objective: 10/26/17 12:02 Vital Signs 10/26/17 10/26/17 10/26/17 06:10 06:30 09:44 Temperature 97 F L 97.2 F L Pulse Rate 61 60 Respiratory 18 18 20 Rate Blood Pressure 100/64 133/87 Laboratory Tests 10/23/17 10/24/17 10/24/17 17:26 06:00 06:00 WBC 6.1 D RBC 4.94 Hgb 13.5 Hct 41.5 MCV 84.1 MCH 27.4 MCHC 32.6 RDW 15.1 Plt Count No Result Required. Platelet Comment Mod plt clumping Sodium 135 L Potassium 4.9 Chloride 101 Carbon Dioxide 30 Anion Gap 4 L BUN 11 D Creatinine 1.2 Creat Clearance w eGFR > 60 Random Glucose 105 D Calcium 9.1 Total Bilirubin 0.3 D AST 11 L D ALT 19 D Alkaline Phosphatase 110 Total Protein 8.4 H Albumin 4.0 D Urine Color Ltyellow Urine Appearance Clear Urine pH 6.0 Ur Specific [place] 1.012 Urine Protein Negative Urine Glucose (UA) Negative Urine Ketones Negative Urine Blood Negative Urine Nitrite Negative Urine Bilirubin Negative Urine Urobilinogen Negative Ur Leukocyte Esterase Negative Valproic Acid RPR Titer 10/24/17 10/24/17 06:00 06:00 WBC RBC Hgb Hct MCV MCH MCHC RDW Plt Count Platelet Comment Sodium Potassium Chloride Carbon Dioxide Anion Gap BUN Creatinine Creat Clearance w eGFR Random Glucose Calcium Total Bilirubin AST ALT Alkaline Phosphatase Total Protein Albumin Urine Color Urine Appearance Urine pH Ur Specific [place] Urine Protein Urine Glucose (UA) Urine Ketones Urine Blood Urine Nitrite Urine Bilirubin Urine Urobilinogen Ur Leukocyte Esterase Valproic Acid < 3.0 L RPR Titer Nonreactive Assessment: 10/26/17 12:02 WITHDRAWAL SX Plan: CONTINUE DETOX IMITREX DIRECTED.
[2017-10-26] MEDS ORDERED: SUMAtriptan SUCCINATE 50 MG TABLET PO SCH (12:15)
[2017-10-26] MEDS ORDERED: SUMAtriptan SUCCINATE 50 MG TABLET PO ONE (12:16)
[2017-10-26] MEDS ORDERED: SUMAtriptan SUCCINATE 50 MG TABLET PO PRN (12:16)
[2017-10-26] MEDS: chlordiazePOXIDE HCL 10 MG CAPSULE PO SCH ×2 (17:09→22:11)
[2017-10-26] MEDS: ZOLPIDEM TARTRATE 5 MG TABLET PO PRN (21:50)
[2017-10-26] MEDS: THIAMINE HCL 100 MG TABLET (FP) PO SCH (22:12)
[2017-10-27] MEDS: chlordiazePOXIDE HCL 10 MG CAPSULE PO SCH ×2 (05:08→10:35)
[2017-10-27 09:08] VITALS: BP 127/81; PULSE 59; TEMP 98.9
--- NOTE | 2017-10-27 10:30 | PN ---
[facility] Progress Note (SOAP) Subjective: DETOX COMPLETED. ALERT O X 3. PT REFERRED TO [facility] TODAY. Objective: 10/27/17 10:26 Vital Signs 10/27/17 10/27/17 10/27/17 03:30 06:24 06:30 Temperature 97.7 F Pulse Rate 57 L Respiratory 18 18 18 Rate Blood Pressure 102/68 10/27/17 09:07 Temperature 98.9 F Pulse Rate 59 L Respiratory 18 Rate Blood Pressure 127/81 Laboratory Tests 10/23/17 10/24/17 10/24/17 17:26 06:00 06:00 WBC 6.1 D RBC 4.94 Hgb 13.5 Hct 41.5 MCV 84.1 MCH 27.4 MCHC 32.6 RDW 15.1 Plt Count No Result Required. Platelet Comment Mod plt clumping Sodium 135 L Potassium 4.9 Chloride 101 Carbon Dioxide 30 Anion Gap 4 L BUN 11 D Creatinine 1.2 Creat Clearance w eGFR > 60 Random Glucose 105 D Calcium 9.1 Total Bilirubin 0.3 D AST 11 L D ALT 19 D Alkaline Phosphatase 110 Total Protein 8.4 H Albumin 4.0 D Urine Color Ltyellow Urine Appearance Clear Urine pH 6.0 Ur Specific [place] 1.012 Urine Protein Negative Urine Glucose (UA) Negative Urine Ketones Negative Urine Blood Negative Urine Nitrite Negative Urine Bilirubin Negative Urine Urobilinogen Negative Ur Leukocyte Esterase Negative Valproic Acid RPR Titer 10/24/17 10/24/17 06:00 06:00 WBC RBC Hgb Hct MCV MCH MCHC RDW Plt Count Platelet Comment Sodium Potassium Chloride Carbon Dioxide Anion Gap BUN Creatinine Creat Clearance w eGFR Random Glucose Calcium Total Bilirubin AST ALT Alkaline Phosphatase Total Protein Albumin Urine Color Urine Appearance Urine pH Ur Specific [place] Urine Protein Urine Glucose (UA) Urine Ketones Urine Blood Urine Nitrite Urine Bilirubin Urine Urobilinogen Ur Leukocyte Esterase Valproic Acid < 3.0 L RPR Titer Nonreactive Assessment: 10/27/17 10:27 MEDICALLY STABLE Plan: D/C PT TODAY
[2017-10-27] MEDS: ARIPiprazole 10 MG TABLET PO SCH (10:33)
[2017-10-27] MEDS: lamoTRIgine 25 MG TABLET PO SCH (10:33)
[2017-10-27] MEDS: DIVALPROEX SODIUM 500 MG TABLET E.C. PO SCH (10:33)
[2017-10-27] MEDS: ESCITALOPRAM OXALATE 20 MG TABLET (FP) PO SCH (10:33)
[2017-10-27] MEDS: PRENATAL VITAMINS W/ FOLIC ACID TABLET (FP) PO SCH (10:33)
--- NOTE | 2017-10-27 11:32 | DS ---
[facility] Detox Discharge Summary Admission Date: 10/23/17 Discharge Date: 10/27/17 - History Present History: Alcohol Dependence, Cannabis Dependence, Cocaine Dependence Additional Comments: DETOX COMPLETED. ALERT O X3. Pertinent Past History: PLEASE SEE DX BELOW - Physical Exam Results Vital Signs: Vital Signs Temperature 98.9 F 10/27/17 09:07 Pulse Rate 59 L 10/27/17 09:07 Respiratory Rate 18 10/27/17 09:07 Blood Pressure 127/81 10/27/17 09:07 O2 Sat by Pulse Oximetry (%) Pertinent Admission Physical Exam Findings: WITHDRAWAL SX - Treatment Hospital Course: Detox Protocol Followed, Detoxed Safely, Responded well, Discharged Condition Good, Rehab Referral Accepted Patient has Accepted a Rehab Referral to: [facility] - Medication Discharge Medications: Ambulatory Orders Escitalopram Oxalate [Lexapro -] 20 mg PO DAILY #30 tablet 07/21/17 Aripiprazole [Abilify -] 30 mg PO DAILY 10/23/17 Divalproex [Depakote -] 500 mg PO BID 10/23/17 Lamotrigine [Lamictal] 150 mg PO BID 10/23/17 Sumatriptan Succinate [Imitrex -] 50 mg PO DAILY PRN 10/26/17 - Diagnosis (1) Alcohol dependence with uncomplicated withdrawal Current Visit: Yes Status: Acute (2) Cocaine dependence with withdrawal Current Visit: Yes Status: Acute (3) Migraine headache Current Visit: Yes Status: Chronic Qualifiers: Migraine type: unspecified Status migrainosus presence: without status migrainosus Intractability: not intractable Qualified Code(s): G43.909 - Migraine, unspecified, not intractable, without status migrainosus (4) H/O cluster headache Current Visit: Yes Status: Chronic (5) Cannabis dependence Current Visit: Yes Status: Acute - AMA Did Patient Leave Against Medical Advice: No
== END 2017-10-27 12:40 | disposition home or self-care (01) | DRG 897 ==
LOC: YASAS 09:53 → Y3N 12:59
PROVIDERS: ADMIT Surgery; ATTEND Surgery
PROC: HZ2ZZZZ Detoxification Services for Substance Abuse Treatment (ICD-10-PCS; principal; 2017-10-23)
DX: F10.230 Alcohol dependence with withdrawal, uncomplicated (principal); F14.20 Cocaine dependence, uncomplicated; F31.81 Bipolar II disorder; F12.20 Cannabis dependence, uncomplicated; G47.00 Insomnia, unspecified; G43.909 Migraine, unspecified, not intractable, without status migrainosus; Z87.891 Personal history of nicotine dependence; Z87.898 Personal history of other specified conditions; Z91.5 Personal history of self-harm
CPT/HCPCS: 36415; 80053; 80164; 81003; 85027; 86593; 93005; 93010

== ENCOUNTER 2018-04-23 12:07 | Inpatient (IN) | payer OTHER ==
[2018-04-23 12:32] VITALS: BMI 32.2
--- NOTE | 2018-04-23 15:19 | HP ---
CIWA Score Nausea/Vomitin Muscle Tremors: 2 Anxiety: 2 Agitation: 2 Paroxysmal Sweats: 1-Minimal Palms Moist Orientation: 0-Oriented Tacttile Disturbances: 1-Very Mild Itch/Numbness Auditory Disturbances: 1-Very Mild Visual Disturbances: 0-None Headache: 2-Mild CIWA-Ar Total Score: 13 - Admission Criteria OASAS Guidelines: Admission for Medically Managed Detox: Requires at least one of the followin. CIWA greater than 12 2. Seizures within the past 24 hours 3. Delirium tremens within the past 24 hours 4. Hallucinations within the past 24 hours 5. Acute intervention needed for co occurring medical disorder 6. Acute intervention needed for co occurring psychiatric disorder 7. Severe withdrawal that cannot be handled at a lower level of care (continued vomiting, continued diarrhea, abnormal vital signs) requiring intravenous medication and/or fluids 8. Patient presents the following: CIWA greater than 12 Admission Criteria Met: Admission criteria met Admission ROS BHS - HPI Chief Complaint: i need help to stop drinking alcohol and crack Allergies/Adverse Reactions: Allergies Allergy/AdvReac Type Severity Reaction Status Date / Time No Known Allergies Allergy Verified 04/23/18 16:14 History of Present Illness: this 57 years old male with alcohol and crack dependence,seeking detox, withdrawal symptom,last detox [facility] 10/23/17 to 10/27/17 syncope alcohol related bipolar 1 disorder on meds cat scratch of right forearm ,wrist,left leg and the bite 1 week ago longest period of sobriety 5 years ago plan for rehab after detox Exam Limitations: No Limitations - Ebola screening Have you traveled outside of the country in the last 21 days: No Have you had contact with anyone from an Ebola affected area: No Have you been sick,other than usual withdrawal symptoms: No Do you have a fever: No - Review of Systems Constitutional: Loss of Appetite, Malaise, Night Sweats, Changes in sleep, Weakness, Unintentional Wgt. Loss EENT: reports: Tearing, Nose Congestion Respiratory: reports: No Symptoms reported Cardiac: reports: No Symptoms Reported GI: reports: Nausea, Poor Appetite, Abdominal cramping : reports: No Symptoms Reported Musculoskeletal: reports: Back Pain, Muscle Pain Integumentary: reports: Dryness, Other (cat bite and scratch right wrist,right forearm,left leg 1 week ago) Neuro: reports: Headache, Tremors Endocrine: reports: No Symptoms Reported Hematology: reports: No Symptoms Reported Psychiatric: reports: No Sypmtoms Reported, Judgement Intact, Mood/Affect Appropiate, Orientated x3, other (bipolar 1 disorder) Patient History - Patient Medical History Hx Anemia: No Hx Asthma: No Hx Chronic Obstructive Pulmonary Disease (COPD): No Hx Cancer: No Hx Cardiac Disorders: No Hx Congestive Heart Failure: No Hx Hypertension: No Hx Hypercholesterolemia: No Hx Pacemaker: No HX Cerebrovascular Accident: No Hx Seizures: No Hx Dementia: No Hx Diabetes: No Hx Gastrointestinal Disorders: No Hx Liver Disease: No Hx Genitourinary Disorders: No Hx Sexually Transmitted Disorders: Yes (syphilis) Hx Renal Disease (ESRD): No Hx Thyroid Disease: No Hx Human Immunodeficiency Virus (HIV): No (09/03 last negative) Hx Hepatitis C: No Hx Depression: Yes Hx Suicide Attempt: Yes (overdose,cutter age 32) Hx Bipolar Disorder: Yes Hx Schizophrenia: No Other Medical History: no suicidal,no homicidal,cat bite and scratch of right wrist and fore 1 wk - Patient Surgical History Past Surgical History: Yes Hx Neurologic Surgery: No Hx Cataract Extraction: No Hx Cardiac Surgery: No Hx Lung Surgery: No Hx Breast Surgery: No Hx Breast Biopsy: No Hx Abdominal Surgery: No Hx Appendectomy: No Hx Cholecystectomy: No Hx Genitourinary Surgery: No Hx Section: No Hx Orthopedic Surgery: Yes (torn meniscus, left knee in 2005) Other Surgical History: bilateral inguinal hernia repair in 1989 Anesthesia Reaction: No - PPD History Previous Implant?: Yes Documented Results: Negative w/proof Implanted On Prior [facility] Admission?: Yes Date: 10/25/17 Results: 0 mm PPD to be Administered?: No - Smoking Cessation Smoking history: Former smoker Have you smoked in the past 12 months: No Aproximately how many cigarettes per day: 0 If you are a former smoker, when did you quit?: 2010 Cigars Per Day: 0 Hx Chewing Tobacco Use: No Initiated information on smoking cessation: Yes 'Breaking Loose' booklet given: 04/23/18 - Substance & Tx. History Hx Alcohol Use: Yes Hx Substance Use: Yes Substance Use Type: Alcohol, Cocaine Hx Substance Use Treatment: Yes ([facility] 10/23/17 to 10/27/17) - Substances Abused Alcohol Route: Oral Frequency: Daily Amount used: 4 pints of vodka/4 of 40 ozs of beer Age of first use: 19 Date of Last Use: 04/21/18 Crack Route: Smoking Frequency: Daily Amount used: 300$ Age of first use: 27 Date of Last Use: 04/21/18 Family Disease History - Family Disease History Family Disease History: CA: Father (PROSTRATE CA-), Mother (UTERINE CA- ), Sister () Admission Physical Exam [facility] - Vital Signs Vital Signs: Vital Signs - 24 hr 04/23/18 12:29 Temperature 97.1 F L Pulse Rate 76 Respiratory 18 Rate Blood Pressure 149/95 - Physical General Appearance: Yes: Moderate Distress, Tremorous, Irritable, Sweating, Anxious HEENTM: Yes: Normal ENT Inspection, MATTHIEU, Pharynx Normal Respiratory: Yes: Lungs Clear, Normal Breath Sounds, No Respiratory Distress Neck: Yes: Within Normal Limits, Supple, Trachea in good position Breast: Yes: Within Normal Limits Cardiology: Yes: Within Normal Limits, Regular Rhythm, Regular Rate, S1, S2 Abdominal: Yes: Within Normal Limits, Non Tender, Soft, Surgical Scar Genitourinary: Yes: Within Normal Limits Back: Yes: Muscle Spasm Musculoskeletal: Yes: Back pain, Muscle Pain Extremities: Yes: Tremors (multiple abrasions of right foeram,wrist,left leg with swelling of right hand) Neurological: Yes: pm technician II-XII NML intact, Fully Oriented, Alert, Motor Strength 5/5 Integumentary: Yes: Dry Lymphatic: Yes: Within Normal Limits - Diagnostic (1) Alcohol dependence with uncomplicated withdrawal Current Visit: Yes Status: Acute (2) Cocaine dependence with withdrawal Current Visit: Yes Status: Chronic (3) Weight loss Current Visit: No Status: Acute (4) H/O cluster headache Current Visit: No Status: Chronic (5) Bipolar 1 disorder Current Visit: Yes Status: Acute (6) Cat bite of right forearm Current Visit: Yes Status: Chronic (7) Cat bite of left lower leg Current Visit: Yes Status: Acute Cleared for Admission [facility] - Detox or Rehab [facility] Level of Care: Medically Managed Detox Regimen/Protocol: Librium [facility] Breath Alcohol Content Breath Alcohol Content: 0 Urine Drug Screen - Results Drug Screen Negative: No Urine Drug Screen Results: RONNIE-Cocaine
[2018-04-23] MEDS ORDERED: MAG HYDROX/AL HYDROX/SIMETH 30 ML UNIT-DOSE CUP PO PRN (15:37)
[2018-04-23] MEDS ORDERED: LOPERAMIDE HCL 2 MG CAPSULE PO PRN (15:37)
[2018-04-23] MEDS ORDERED: MAGNESIUM HYDROX 2400MG/30ML ORAL SUSPENSION 30 ML CUP PO PRN (15:37)
[2018-04-23] MEDS ORDERED: MAGNESIUM CITRATE 300 ML BOTTLE PO PRN (15:37)
[2018-04-23] MEDS ORDERED: IBUPROFEN 400 MG TABLET (FP) PO PRN (15:37)
[2018-04-23] MEDS ORDERED: guaiFENesin/D-METHORPHAN HB 10 ML UNIT-DOSE CUPS PO PRN (15:37)
[2018-04-23] MEDS ORDERED: chlordiazePOXIDE HCL 25 MG CAPSULE PO PRN (15:37)
[2018-04-23] MEDS ORDERED: ACETAMINOPHEN 325 MG TABLET (FP) PO PRN (15:37)
[2018-04-23] MEDS ORDERED: P-EPHED 60MG/TRIPROLIDI 2.5MG TABLET PO PRN (15:37)
[2018-04-23] MEDS ORDERED: hydrOXYzine PAMOATE 25 MG CAPSULE (FP) PO PRN (15:37)
[2018-04-23] MEDS ORDERED: MENTHOL/PHENOL 1 EACH UD MM PRN (15:37)
[2018-04-23] MEDS: DOXYCYCLINE HYCLATE 100 MG TABLET PO SCH (19:00)
[2018-04-23] MEDS: chlordiazePOXIDE HCL 25 MG CAPSULE PO SCH (22:07)
[2018-04-23] MEDS: THIAMINE HCL 100 MG TABLET (FP) PO SCH (22:07)
[2018-04-23] MEDS: BACITRACIN 0.9 GM PACKET TP SCH (22:07)
[2018-04-23] MEDS: MELATONIN 5 MG TABLETS PO PRN (22:08)
[2018-04-23 22:45] LABS: URINE APPEARANCE CLEAR; URINE BILIRUBIN NEGATIVE (<2.0 mg/dL); URINE COLOR YELLOW; URINE GLUCOSE (UA) NEGATIVE (NEGATIVE); URINE KETONE NEGATIVE (NEGATIVE); URINE LEUK ESTERASE NEGATIVE (NEGATIVE); URINE NITRITE NEGATIVE (NEGATIVE); URINE PROTEIN NEGATIVE (NEGATIVE)
[2018-04-24] MEDS: chlordiazePOXIDE HCL 25 MG CAPSULE PO SCH ×4 (05:42→22:00)
[2018-04-24] MEDS: BACITRACIN 0.9 GM PACKET TP SCH ×2 (10:10→22:00)
[2018-04-24] MEDS: PRENATAL VITAMINS W/ FOLIC ACID TABLET (FP) PO SCH (10:10)
[2018-04-24] MEDS: DOXYCYCLINE HYCLATE 100 MG TABLET PO SCH ×2 (10:10→17:21)
[2018-04-24 10:43] LABS: HEMATOCRIT 33.4 % (35.4-49); HEMOGLOBIN 11.5 GM/dL (11.7-16.9); MCH 27.6 pg (25.7-33.7); MCHC 34.4 g/dl (32.0-35.9); MEAN CELL VOLUME 80.4 fl (80-96); MEAN PLT VOLUME 8.8 fl (7.5-11.1); PLATELET COUNT 338 K/MM3 (134-434); RBC 4.15 M/mm3 (4.00-5.60); RDW 13.8 % (11.9-15.9); WHITE BLOOD COUNT 6.6 K/mm3 (4.0-10.0)
--- NOTE | 2018-04-24 10:51 | PN ---
S CIWA - CIWA Score Nausea/Vomitin Muscle Tremors: 4-Moderate,w/Arms Extend Anxiety: 4-Mod. Anxious/Guarded Agitation: 2 Paroxysmal Sweats: 3 Orientation: 0-Oriented Tacttile Disturbances: 1-Very Mild Itch/Numbness Auditory Disturbances: 0-None Visual Disturbances: 0-None Headache: 1-Very Mild CIWA-Ar Total Score: 17 BHS Progress Note (SOAP) Subjective: Tremor, chills, sweating, interrupted sleep. Patient c/o right hand pain, swelling and numbness to right big and index finger. As per patient, he went to his friend's house for the first time 1 week ago and was smoking crack and the friend's cat attacked him and bit him on his right hand. Patient stated he tossed the cat off his hand and the cat ran away from him. As per patient, he never seek any medical attention. Objective: 04/24/18 11:03 Last Vital Signs Temp Pulse Resp BP Pulse Ox 97.2 F L 65 18 106/66 04/24/18 06:11 04/24/18 06:11 04/24/18 06:30 04/24/18 06:11 Laboratory Tests 04/23/18 04/24/18 12:45 06:30 WBC 6.6 RBC 4.15 Hgb 11.5 L Hct 33.4 L D MCV 80.4 MCH 27.6 MCHC 34.4 RDW 13.8 Plt Count 338 D MPV 8.8 Urine Color Yellow Urine Appearance Clear Urine pH 6.0 Ur Specific [place] 1.033 Urine Protein Negative Urine Glucose (UA) Negative Urine Ketones Negative Urine Blood Negative Urine Nitrite Negative Urine Bilirubin Negative Urine Urobilinogen 2.0 Ur Leukocyte Esterase Negative Labs reviewed Assessment: 04/24/18 11:04 Withdrawal symptoms Plan: Continue detox Encouraged PO water intake
[2018-04-24 11:14] LABS: ALK PHOS 82 U/L (45-117); ANION GAP 10 MMOL/L (8-16); BILIRUBIN,TOTAL 0.2 mg/dL (0.2-1); BLOOD UREA NITROGEN 13 mg/dL (7-18); CALCIUM 7.9 mg/dL (8.5-10.1); CHLORIDE 103 mmol/L (98-107); CO2 26 mmol/L (21-32); GLUCOSE,RANDOM 104 mg/dL (74-106); SGOT/AST 20 U/L (15-37); SGPT/ALT 24 U/L (13-61); SODIUM 140 mmol/L (136-145); TOT PROT 6.7 g/dl (6.4-8.2)
[2018-04-24] MEDS: THIAMINE HCL 100 MG TABLET (FP) PO SCH (22:00)
[2018-04-24] MEDS: MELATONIN 5 MG TABLETS PO PRN (22:00)
[2018-04-25] MEDS: chlordiazePOXIDE HCL 25 MG CAPSULE PO SCH ×3 (05:20→17:33)
--- NOTE | 2018-04-25 09:58 | PN ---
[facility] CIWA - CIWA Score Nausea/Vomitin-No Nausea/No Vomiting Muscle Tremors: 3 Anxiety: 4-Mod. Anxious/Guarded Agitation: 4-Moderately Restless Paroxysmal Sweats: 1-Minimal Palms Moist Orientation: 0-Oriented Tacttile Disturbances: 0-None Auditory Disturbances: 0-None Visual Disturbances: 0-None Headache: 0-None Present CIWA-Ar Total Score: 12 BHS Progress Note (SOAP) Subjective: ANXIETY, SWEATS,TREMORS., INTERMITTENT SLEEP. PAIN RIGHT WRIST-S/P TRUAMA X 1 WEEK. Objective: 04/25/18 09:57 Vital Signs 04/25/18 04/25/18 04/25/18 03:30 06:11 09:30 Temperature 98.1 F 97.6 F Pulse Rate 62 72 Respiratory 18 18 18 Rate Blood Pressure 101/65 132/90 Laboratory Tests 04/23/18 04/24/18 04/24/18 12:45 06:30 06:30 WBC 6.6 RBC 4.15 Hgb 11.5 L Hct 33.4 L D MCV 80.4 MCH 27.6 MCHC 34.4 RDW 13.8 Plt Count 338 D MPV 8.8 Sodium 140 Potassium 4.0 Chloride 103 Carbon Dioxide 26 Anion Gap 10 BUN 13 Creatinine 1.0 Creat Clearance w eGFR > 60 Random Glucose 104 Calcium 7.9 L Total Bilirubin 0.2 AST 20 ALT 24 Alkaline Phosphatase 82 Total Protein 6.7 Albumin 3.0 L Urine Color Yellow Urine Appearance Clear Urine pH 6.0 Ur Specific [place] 1.033 Urine Protein Negative Urine Glucose (UA) Negative Urine Ketones Negative Urine Blood Negative Urine Nitrite Negative Urine Bilirubin Negative Urine Urobilinogen 2.0 Ur Leukocyte Esterase Negative RPR Titer 04/24/18 06:30 WBC RBC Hgb Hct MCV MCH MCHC RDW Plt Count MPV Sodium Potassium Chloride Carbon Dioxide Anion Gap BUN Creatinine Creat Clearance w eGFR Random Glucose Calcium Total Bilirubin AST ALT Alkaline Phosphatase Total Protein Albumin Urine Color Urine Appearance Urine pH Ur Specific [place] Urine Protein Urine Glucose (UA) Urine Ketones Urine Blood Urine Nitrite Urine Bilirubin Urine Urobilinogen Ur Leukocyte Esterase RPR Titer Nonreactive Assessment: 04/25/18 09:57 WITHDRAWAL SX Plan: CONTINUE DETOX MOTRIN PRN DIRECTED
[2018-04-25] MEDS: BACITRACIN 0.9 GM PACKET TP SCH ×2 (10:16→22:08)
[2018-04-25] MEDS: PRENATAL VITAMINS W/ FOLIC ACID TABLET (FP) PO SCH (10:17)
[2018-04-25] MEDS: DOXYCYCLINE HYCLATE 100 MG TABLET PO SCH ×2 (10:17→17:33)
[2018-04-25] MEDS: chlordiazePOXIDE 5 MG CAPSULE PO SCH (22:08)
[2018-04-25] MEDS: THIAMINE HCL 100 MG TABLET (FP) PO SCH (22:08)
[2018-04-25] MEDS: MELATONIN 5 MG TABLETS PO PRN (22:08)
[2018-04-26] MEDS: chlordiazePOXIDE 5 MG CAPSULE PO SCH ×3 (05:14→17:17)
[2018-04-26] MEDS: BACITRACIN 0.9 GM PACKET TP SCH ×2 (10:22→22:05)
[2018-04-26] MEDS: DOXYCYCLINE HYCLATE 100 MG TABLET PO SCH ×2 (10:22→17:10)
[2018-04-26] MEDS: PRENATAL VITAMINS W/ FOLIC ACID TABLET (FP) PO SCH (10:22)
--- NOTE | 2018-04-26 12:30 | PN ---
BHS Progress Note (SOAP) Subjective: Headache, tremor, interrupted sleep Objective: 04/26/18 12:26 Last Vital Signs Temp Pulse Resp BP Pulse Ox 97.0 F L 63 16 100/60 04/26/18 09:48 04/26/18 09:48 04/26/18 09:48 04/26/18 09:48 PE: Right hand: mild to moderate swelling, swelling improved in hand/digits, small abrasion noted; no redness or discharge xray right hand on 04/24/18: calcification or old avulsion off the ulnar styloid process Laboratory Tests 04/23/18 04/24/18 04/24/18 12:45 06:30 06:30 WBC 6.6 RBC 4.15 Hgb 11.5 L Hct 33.4 L D MCV 80.4 MCH 27.6 MCHC 34.4 RDW 13.8 Plt Count 338 D MPV 8.8 Sodium 140 Potassium 4.0 Chloride 103 Carbon Dioxide 26 Anion Gap 10 BUN 13 Creatinine 1.0 Creat Clearance w eGFR > 60 Random Glucose 104 Calcium 7.9 L Total Bilirubin 0.2 AST 20 ALT 24 Alkaline Phosphatase 82 Total Protein 6.7 Albumin 3.0 L Urine Color Yellow Urine Appearance Clear Urine pH 6.0 Ur Specific [place] 1.033 Urine Protein Negative Urine Glucose (UA) Negative Urine Ketones Negative Urine Blood Negative Urine Nitrite Negative Urine Bilirubin Negative Urine Urobilinogen 2.0 Ur Leukocyte Esterase Negative RPR Titer 04/24/18 06:30 WBC RBC Hgb Hct MCV MCH MCHC RDW Plt Count MPV Sodium Potassium Chloride Carbon Dioxide Anion Gap BUN Creatinine Creat Clearance w eGFR Random Glucose Calcium Total Bilirubin AST ALT Alkaline Phosphatase Total Protein Albumin Urine Color Urine Appearance Urine pH Ur Specific [place] Urine Protein Urine Glucose (UA) Urine Ketones Urine Blood Urine Nitrite Urine Bilirubin Urine Urobilinogen Ur Leukocyte Esterase RPR Titer Nonreactive Labs reviewed Assessment: 04/26/18 12:28 Withdrawal symptoms Plan: Continue detox Encouraged PO water intake Right hand swelling/pain due to cat bite: elevate extremity, continue motrin prn , continue PO antibiotic and bacitracin to abrasion site; Instructed to follow up with PCP post discharge for further evaluation and referral to hand specialist or orthopedist
[2018-04-26] MEDS: chlordiazePOXIDE HCL 10 MG CAPSULE PO SCH (22:05)
[2018-04-26] MEDS: THIAMINE HCL 100 MG TABLET (FP) PO SCH (22:05)
[2018-04-26] MEDS: MELATONIN 5 MG TABLETS PO PRN (22:05)
[2018-04-27] MEDS: chlordiazePOXIDE HCL 10 MG CAPSULE PO SCH ×3 (05:04→17:39)
--- NOTE | 2018-04-27 08:44 | DS ---
[facility] Detox Discharge Summary Admission Date: 04/23/18 Discharge Date: 04/27/18 - History Present History: Alcohol Dependence Additional Comments: 57 years old male admitted on 04/23/18 for alcohol withdrawal sx completed detox regimen tolerated well aftercare [facility] - Physical Exam Results Vital Signs: Vital Signs Temperature 97.2 F L 04/27/18 06:08 Pulse Rate 64 04/27/18 06:08 Respiratory Rate 18 04/27/18 06:30 Blood Pressure 112/74 04/27/18 06:08 O2 Sat by Pulse Oximetry (%) Pertinent Admission Physical Exam Findings: alcohol withdrawal sx Vital Signs Temperature 97.0 F L 04/27/18 09:07 Pulse Rate 68 04/27/18 09:07 Respiratory Rate 18 04/27/18 09:07 Blood Pressure 116/77 04/27/18 09:07 O2 Sat by Pulse Oximetry (%) Laboratory Last Values WBC 6.6 K/mm3 (4.0-10.0) 04/24/18 06:30 RBC 4.15 M/mm3 (4.00-5.60) 04/24/18 06:30 Hgb 11.5 GM/dL (11.7-16.9) L 04/24/18 06:30 Hct 33.4 % (35.4-49) L D 04/24/18 06:30 MCV 80.4 fl (80-96) 04/24/18 06:30 MCH 27.6 pg (25.7-33.7) 04/24/18 06:30 MCHC 34.4 g/dl (32.0-35.9) 04/24/18 06:30 RDW 13.8 % (11.9-15.9) 04/24/18 06:30 Plt Count 338 K/MM3 (134-434) D 04/24/18 06:30 MPV 8.8 fl (7.5-11.1) 04/24/18 06:30 Sodium 140 mmol/L (136-145) 04/24/18 06:30 Potassium 4.0 mmol/L (3.5-5.1) 04/24/18 06:30 Chloride 103 mmol/L (98-107) 04/24/18 06:30 Carbon Dioxide 26 mmol/L (21-32) 04/24/18 06:30 Anion Gap 10 MMOL/L (8-16) 04/24/18 06:30 BUN 13 mg/dL (7-18) 04/24/18 06:30 Creatinine 1.0 mg/dL (0.55-1.3) 04/24/18 06:30 Creat Clearance w eGFR > 60 (>60) 04/24/18 06:30 Random Glucose 104 mg/dL (74-106) 04/24/18 06:30 Calcium 7.9 mg/dL (8.5-10.1) L 04/24/18 06:30 Total Bilirubin 0.2 mg/dL (0.2-1) 04/24/18 06:30 AST 20 U/L (15-37) 04/24/18 06:30 ALT 24 U/L (13-61) 04/24/18 06:30 Alkaline Phosphatase 82 U/L (45-117) 04/24/18 06:30 Total Protein 6.7 g/dl (6.4-8.2) 04/24/18 06:30 Albumin 3.0 g/dl (3.4-5.0) L 04/24/18 06:30 Urine Color Yellow 04/23/18 12:45 Urine Appearance Clear 04/23/18 12:45 Urine pH 6.0 (5.0-8.0) 04/23/18 12:45 Ur Specific [place] 1.033 (1.010-1.035) 04/23/18 12:45 Urine Protein Negative (NEGATIVE) 04/23/18 12:45 Urine Glucose (UA) Negative (NEGATIVE) 04/23/18 12:45 Urine Ketones Negative (NEGATIVE) 04/23/18 12:45 Urine Blood Negative (NEGATIVE) 04/23/18 12:45 Urine Nitrite Negative (NEGATIVE) 04/23/18 12:45 Urine Bilirubin Negative (<2.0 mg/dL) 04/23/18 12:45 Urine Urobilinogen 2.0 mg/dL (0.2-1.0) 04/23/18 12:45 Ur Leukocyte Esterase Negative (NEGATIVE) 04/23/18 12:45 RPR Titer Nonreactive (NONREACTIVE) 04/24/18 06:30 lab noted - Treatment Hospital Course: Detox Protocol Followed, Detoxed Safely, Responded well, Discharged Condition Good, Rehab Referral Accepted Patient has Accepted a Rehab Referral to: [facility] rehab - Medication Discharge Medications: Ambulatory Orders Escitalopram Oxalate [Lexapro -] 20 mg PO DAILY #30 tablet 07/21/17 Aripiprazole [Abilify -] 30 mg PO DAILY 10/23/17 Divalproex [Depakote -] 500 mg PO BID 10/23/17 Lamotrigine [Lamictal] 150 mg PO BID 10/23/17 Sumatriptan Succinate [Imitrex -] 50 mg PO DAILY PRN 10/26/17 Zolpidem Tartrate [Ambien] 10 mg PO HS 04/23/18 - Diagnosis (1) Alcohol dependence with uncomplicated withdrawal Current Visit: Yes Status: Acute (2) Weight loss Current Visit: Yes Status: Acute (3) Bipolar II disorder Current Visit: Yes Status: Suspected - AMA Did Patient Leave Against Medical Advice: No
[2018-04-27] MEDS: BACITRACIN 0.9 GM PACKET TP SCH ×2 (11:37→21:26)
[2018-04-27] MEDS: PRENATAL VITAMINS W/ FOLIC ACID TABLET (FP) PO SCH (11:38)
[2018-04-27] MEDS: DOXYCYCLINE HYCLATE 100 MG TABLET PO SCH ×2 (11:39→17:39)
[2018-04-27] MEDS: THIAMINE HCL 100 MG TABLET (FP) PO SCH (21:25)
[2018-04-27] MEDS: DIVALPROEX SODIUM 500 MG TABLET E.C. PO SCH (21:26)
[2018-04-27] MEDS: MELATONIN 5 MG TABLETS PO PRN (21:26)
[2018-04-27] MEDS: lamoTRIgine 100 MG TABLET (FP) PO SCH (21:27)
[2018-04-28] MEDS ORDERED: ARIPiprazole 30 MG TABLET PO SCH ×2 (10:00→22:00)
[2018-04-28] MEDS ORDERED: ESCITALOPRAM OXALATE 20 MG TABLET (FP) PO SCH (10:00)
[2018-04-28] MEDS: BACITRACIN 0.9 GM PACKET TP SCH ×2 (10:28→22:03)
[2018-04-28] MEDS: lamoTRIgine 100 MG TABLET (FP) PO SCH (10:29)
[2018-04-28] MEDS: PRENATAL VITAMINS W/ FOLIC ACID TABLET (FP) PO SCH (10:30)
[2018-04-28] MEDS ORDERED: PT OWN MED DRAWER 7, Y5N ONE (10:32)
[2018-04-28] MEDS: DIVALPROEX SODIUM 500 MG TABLET E.C. PO SCH ×2 (10:33→22:03)
[2018-04-28] MEDS: DOXYCYCLINE HYCLATE 100 MG TABLET PO SCH ×2 (10:40→17:39)
[2018-04-28] MEDS: ARIPiprazole 15 MG TABLET PO SCH (10:42)
--- NOTE | 2018-04-28 15:08 | HP ---
Psychiatrist Admission - Data Date of interview: 04/28/18 Admission source: [facility] Identifying data: Patient is a 57 year old male, father of three, unemployed, domiciled, and is supported by [facility]. This is one of multiple admissions to rehab at [facility]. Patient admitted to for alcohol and cocaine dependence. Medical History: syphilis, torn meniscus left knee surgery in 2005, Bilteral inguinal hernia repair in 1989 Psychiatric History: Patient's first psychiatric contact was at [facility] while in his mid 20's after a suicide attempt via overdose. He was admitted for thirty days and diagnosed with bipolar disorder. Before his admission to [facility] he reports symptoms of racing thoughts, impulsivity, irritability and poor sleep. Patient reports a second psychiatric admission to [facility] months later secondary to suicide attempt by self mutilation. Outpatient psychiatric services is provided at the [facility] in the [place], [place]. Patient is seen by Dr. Cleveland. He is currently prescribed depakote 500mg BID + abilify 30mg qhs+ lamictal (unknown dose) + Lexapro (unknown dose). He reports last taking his medications 3 weeks ago due to relapsing on alcohol and cocaine. At present, he reports unstable mood and difficulty sleeping. Patient denies thoughts or urges to hurt himself or others. Physical/Sexual Abuse/Trauma History: denies. Vital Signs: Vital Signs - 24 hr 04/27/18 04/27/18 04/28/18 17:19 20:43 00:30 Temperature 98 F 98.3 F Pulse Rate 76 85 Respiratory 18 18 18 Rate Blood Pressure 144/79 139/84 04/28/18 04/28/18 03:30 07:01 Temperature 97.8 F Pulse Rate 68 Respiratory 18 18 Rate Blood Pressure 134/83 Allergies/Adverse Reactions: Allergies Allergy/AdvReac Type Severity Reaction Status Date / Time No Known Allergies Allergy Verified 04/23/18 16:14 Date of last physical exam: 04/23/18 - Substance Abuse/Tx History Hx Alcohol Use: Yes (2 pints of vodka and a couple of 40's (beer) on most days) Hx Substance Use: Yes (Cocaine- i spent about $1000 in two days) Substance Use Type: Cocaine Hx Substance Use Treatment: Yes ([facility]. ) Mental Status Exam - Mental Status Exam Alert and Oriented to: Time, Place, Person Cognitive Function: Good Patient Appearance: Well Groomed Mood: Hopeful Affect: Appropriate Patient Behavior: Appropriate, Cooperative Speech Pattern: Clear, Appropriate Voice Loudness: Normal Thought Process: Intact, Goal Oriented Thought Disorder: Not Present Hallucinations: Denies Suicidal Ideation: Denies Homicidal Ideation: Denies Insight/Judgement: Poor Sleep: Poorly Appetite: Fair Muscle strength/Tone: Normal Gait/Station: Normal Psychiatric Findings - Problem List ([place] 1, 2,3) (1) Alcohol dependence Current Visit: Yes Status: Acute (2) Cocaine dependence Current Visit: Yes Status: Acute (3) Bipolar 1 disorder Current Visit: Yes Status: Chronic - Initial Treatment Plan Initial Treatment Plan: Psychoeducation provided. Detoxification in progress. Ground Wirer able to contact [facility] at [phone] and able to speak to pharmacist. As per pharmacy staff patient's psycotropic medications are: Celexa 20mg daily + Depakote 500mg BID + Abilify 30mg + Lamictal 150mg BID (lamictal to be restarted at 25mg BID due to nonadherence for three weeks.) + Ambien 10mg (all prescriptions sent on 04/06/18). Noted: Dr. Toth restarted patient on psychotropic medications including lexapro 20mg which grant writer discontinued. As per pharmacist at [facility], patient is not prescribed lexapro 20mg. Lamictal 150mg BID discontinued and restarted on lamictal 25mg BID due to noncompliance to medications for three weeks and the risk of boo roberto syndrome. Will order depakote level for 05/01/18.
[2018-04-28] MEDS ORDERED: LAMOTRIGINE 100 MG, LAMOTRIGINE 50 MG PO SCH (22:00)
[2018-04-28] MEDS ORDERED: lamoTRIgine 25 MG TABLET PO SCH (22:00)
[2018-04-28] MEDS ORDERED: DIVALPROEX SODIUM 500 MG TABLET E.C. PO SCH (22:00)
[2018-04-28] MEDS: MELATONIN 5 MG TABLETS PO PRN (22:03)
[2018-04-28] MEDS: THIAMINE HCL 100 MG TABLET (FP) PO SCH (22:03)
[2018-04-28] MEDS: lamoTRIgine 25 MG TABLET PO SCH (22:04)
[2018-04-29] MEDS: BACITRACIN 0.9 GM PACKET TP SCH ×2 (10:32→21:44)
[2018-04-29] MEDS: PRENATAL VITAMINS W/ FOLIC ACID TABLET (FP) PO SCH (10:32)
[2018-04-29] MEDS: DOXYCYCLINE HYCLATE 100 MG TABLET PO SCH ×2 (10:32→18:25)
[2018-04-29] MEDS: lamoTRIgine 25 MG TABLET PO SCH ×2 (10:32→22:03)
[2018-04-29] MEDS: CITALOPRAM HYDROBROMIDE 20 MG TABLET (FP) PO SCH (10:32)
[2018-04-29] MEDS: ARIPiprazole 15 MG TABLET PO SCH (10:32)
[2018-04-29] MEDS: DIVALPROEX SODIUM 500 MG TABLET E.C. PO SCH ×2 (10:32→21:44)
[2018-04-29] MEDS: THIAMINE HCL 100 MG TABLET (FP) PO SCH (21:44)
[2018-04-29] MEDS: MELATONIN 5 MG TABLETS PO PRN (21:45)
[2018-04-30] MEDS ORDERED: PT OWN MED DRAWER 7, Y5N ONE (09:02)
[2018-04-30] MEDS: PRENATAL VITAMINS W/ FOLIC ACID TABLET (FP) PO SCH (09:55)
[2018-04-30] MEDS: CITALOPRAM HYDROBROMIDE 20 MG TABLET (FP) PO SCH (09:55)
[2018-04-30] MEDS: DIVALPROEX SODIUM 500 MG TABLET E.C. PO SCH ×2 (09:55→21:42)
[2018-04-30] MEDS: ARIPiprazole 15 MG TABLET PO SCH (09:55)
[2018-04-30] MEDS: lamoTRIgine 25 MG TABLET PO SCH ×2 (09:55→21:42)
[2018-04-30] MEDS: BACITRACIN 0.9 GM PACKET TP SCH ×2 (09:55→21:42)
[2018-04-30] MEDS: DOXYCYCLINE HYCLATE 100 MG TABLET PO SCH ×2 (09:55→17:49)
[2018-04-30] MEDS: THIAMINE HCL 100 MG TABLET (FP) PO SCH (21:42)
[2018-04-30] MEDS: MELATONIN 5 MG TABLETS PO PRN (21:42)
[2018-05-01] MEDS: lamoTRIgine 25 MG TABLET PO SCH ×2 (10:05→22:00)
[2018-05-01] MEDS: DIVALPROEX SODIUM 500 MG TABLET E.C. PO SCH ×2 (10:05→22:00)
[2018-05-01] MEDS: ARIPiprazole 15 MG TABLET PO SCH (10:05)
[2018-05-01] MEDS: CITALOPRAM HYDROBROMIDE 20 MG TABLET (FP) PO SCH (10:05)
[2018-05-01] MEDS: PRENATAL VITAMINS W/ FOLIC ACID TABLET (FP) PO SCH (10:05)
[2018-05-01] MEDS: DOXYCYCLINE HYCLATE 100 MG TABLET PO SCH ×2 (10:05→17:55)
[2018-05-01] MEDS: BACITRACIN 0.9 GM PACKET TP SCH ×2 (10:05→22:00)
[2018-05-01] MEDS: MELATONIN 5 MG TABLETS PO PRN (22:00)
[2018-05-01] MEDS: THIAMINE HCL 100 MG TABLET (FP) PO SCH (22:00)
[2018-05-02] MEDS: lamoTRIgine 25 MG TABLET PO SCH ×2 (10:13→21:33)
[2018-05-02] MEDS: DIVALPROEX SODIUM 500 MG TABLET E.C. PO SCH ×2 (10:13→21:33)
[2018-05-02] MEDS: DOXYCYCLINE HYCLATE 100 MG TABLET PO SCH ×2 (10:13→17:40)
[2018-05-02] MEDS: CITALOPRAM HYDROBROMIDE 20 MG TABLET (FP) PO SCH (10:13)
[2018-05-02] MEDS: PRENATAL VITAMINS W/ FOLIC ACID TABLET (FP) PO SCH (10:13)
[2018-05-02] MEDS: ARIPiprazole 15 MG TABLET PO SCH (10:13)
[2018-05-02] MEDS: BACITRACIN 0.9 GM PACKET TP SCH ×2 (10:13→21:33)
[2018-05-02] MEDS: THIAMINE HCL 100 MG TABLET (FP) PO SCH (21:33)
[2018-05-02] MEDS: MELATONIN 5 MG TABLETS PO PRN (21:34)
[2018-05-03] MEDS: lamoTRIgine 25 MG TABLET PO SCH ×2 (10:13→21:29)
[2018-05-03] MEDS: ARIPiprazole 15 MG TABLET PO SCH (10:13)
[2018-05-03] MEDS: CITALOPRAM HYDROBROMIDE 20 MG TABLET (FP) PO SCH (10:13)
[2018-05-03] MEDS: DIVALPROEX SODIUM 500 MG TABLET E.C. PO SCH ×2 (10:13→21:29)
[2018-05-03] MEDS: PRENATAL VITAMINS W/ FOLIC ACID TABLET (FP) PO SCH (10:13)
[2018-05-03] MEDS: BACITRACIN 0.9 GM PACKET TP SCH ×2 (10:13→21:29)
[2018-05-03] MEDS: DOXYCYCLINE HYCLATE 100 MG TABLET PO SCH ×2 (10:13→19:08)
[2018-05-03] MEDS: MELATONIN 5 MG TABLETS PO PRN (21:29)
[2018-05-03] MEDS: THIAMINE HCL 100 MG TABLET (FP) PO SCH (21:29)
[2018-05-04] MEDS: BACITRACIN 0.9 GM PACKET TP SCH ×2 (10:09→21:41)
[2018-05-04] MEDS: CITALOPRAM HYDROBROMIDE 20 MG TABLET (FP) PO SCH (10:09)
[2018-05-04] MEDS: ARIPiprazole 15 MG TABLET PO SCH (10:09)
[2018-05-04] MEDS: DOXYCYCLINE HYCLATE 100 MG TABLET PO SCH ×2 (10:09→17:51)
[2018-05-04] MEDS: DIVALPROEX SODIUM 500 MG TABLET E.C. PO SCH ×2 (10:09→21:41)
[2018-05-04] MEDS: lamoTRIgine 25 MG TABLET PO SCH ×2 (10:09→21:41)
[2018-05-04] MEDS: PRENATAL VITAMINS W/ FOLIC ACID TABLET (FP) PO SCH (10:09)
[2018-05-04] MEDS: MELATONIN 5 MG TABLETS PO PRN (21:41)
[2018-05-04] MEDS: THIAMINE HCL 100 MG TABLET (FP) PO SCH (21:41)
[2018-05-05] MEDS: DIVALPROEX SODIUM 500 MG TABLET E.C. PO SCH ×2 (10:20→21:27)
[2018-05-05] MEDS: CITALOPRAM HYDROBROMIDE 20 MG TABLET (FP) PO SCH (10:20)
[2018-05-05] MEDS: PRENATAL VITAMINS W/ FOLIC ACID TABLET (FP) PO SCH (10:20)
[2018-05-05] MEDS: DOXYCYCLINE HYCLATE 100 MG TABLET PO SCH ×2 (10:20→17:56)
[2018-05-05] MEDS: ARIPiprazole 15 MG TABLET PO SCH (10:20)
[2018-05-05] MEDS: BACITRACIN 0.9 GM PACKET TP SCH ×2 (10:20→21:27)
[2018-05-05] MEDS: lamoTRIgine 25 MG TABLET PO SCH ×2 (10:20→21:27)
[2018-05-05] MEDS: THIAMINE HCL 100 MG TABLET (FP) PO SCH (21:27)
[2018-05-05] MEDS: MELATONIN 5 MG TABLETS PO PRN (21:27)
[2018-05-06] MEDS: ARIPiprazole 15 MG TABLET PO SCH (10:15)
[2018-05-06] MEDS: BACITRACIN 0.9 GM PACKET TP SCH ×2 (10:15→21:57)
[2018-05-06] MEDS: PRENATAL VITAMINS W/ FOLIC ACID TABLET (FP) PO SCH (10:15)
[2018-05-06] MEDS: lamoTRIgine 25 MG TABLET PO SCH ×2 (10:16→21:57)
[2018-05-06] MEDS: DOXYCYCLINE HYCLATE 100 MG TABLET PO SCH ×2 (10:16→17:50)
[2018-05-06] MEDS: CITALOPRAM HYDROBROMIDE 20 MG TABLET (FP) PO SCH (10:16)
[2018-05-06] MEDS: DIVALPROEX SODIUM 500 MG TABLET E.C. PO SCH ×2 (10:16→21:57)
[2018-05-06] MEDS: MELATONIN 5 MG TABLETS PO PRN (21:57)
[2018-05-06] MEDS: THIAMINE HCL 100 MG TABLET (FP) PO SCH (21:57)
[2018-05-07] MEDS: PRENATAL VITAMINS W/ FOLIC ACID TABLET (FP) PO SCH (10:24)
[2018-05-07] MEDS: lamoTRIgine 25 MG TABLET PO SCH ×2 (10:24→21:49)
[2018-05-07] MEDS: ARIPiprazole 15 MG TABLET PO SCH (10:24)
[2018-05-07] MEDS: CITALOPRAM HYDROBROMIDE 20 MG TABLET (FP) PO SCH (10:24)
[2018-05-07] MEDS: DOXYCYCLINE HYCLATE 100 MG TABLET PO SCH ×2 (10:24→17:01)
[2018-05-07] MEDS: BACITRACIN 0.9 GM PACKET TP SCH ×2 (10:25→21:49)
[2018-05-07] MEDS: DIVALPROEX SODIUM 500 MG TABLET E.C. PO SCH ×2 (10:25→21:49)
[2018-05-07] MEDS: MELATONIN 5 MG TABLETS PO PRN (21:49)
[2018-05-07] MEDS: THIAMINE HCL 100 MG TABLET (FP) PO SCH (21:49)
[2018-05-08] MEDS: lamoTRIgine 25 MG TABLET PO SCH ×2 (10:22→21:58)
[2018-05-08] MEDS: ARIPiprazole 15 MG TABLET PO SCH (10:22)
[2018-05-08] MEDS: CITALOPRAM HYDROBROMIDE 20 MG TABLET (FP) PO SCH (10:22)
[2018-05-08] MEDS: PRENATAL VITAMINS W/ FOLIC ACID TABLET (FP) PO SCH (10:22)
[2018-05-08] MEDS: DIVALPROEX SODIUM 500 MG TABLET E.C. PO SCH ×2 (10:22→21:58)
[2018-05-08] MEDS: BACITRACIN 0.9 GM PACKET TP SCH ×2 (10:22→21:58)
[2018-05-08] MEDS: DOXYCYCLINE HYCLATE 100 MG TABLET PO SCH ×2 (10:22→17:27)
[2018-05-08] MEDS: THIAMINE HCL 100 MG TABLET (FP) PO SCH (21:58)
[2018-05-08] MEDS: MELATONIN 5 MG TABLETS PO PRN (21:58)
[2018-05-09] MEDS: PRENATAL VITAMINS W/ FOLIC ACID TABLET (FP) PO SCH (10:23)
[2018-05-09] MEDS: CITALOPRAM HYDROBROMIDE 20 MG TABLET (FP) PO SCH (10:23)
[2018-05-09] MEDS: DIVALPROEX SODIUM 500 MG TABLET E.C. PO SCH ×2 (10:23→21:46)
[2018-05-09] MEDS: DOXYCYCLINE HYCLATE 100 MG TABLET PO SCH ×2 (10:23→17:27)
[2018-05-09] MEDS: ARIPiprazole 15 MG TABLET PO SCH (10:23)
[2018-05-09] MEDS: lamoTRIgine 25 MG TABLET PO SCH ×2 (10:23→21:46)
[2018-05-09] MEDS: BACITRACIN 0.9 GM PACKET TP SCH ×2 (10:23→21:45)
[2018-05-09] MEDS: MELATONIN 5 MG TABLETS PO PRN (21:45)
[2018-05-09] MEDS: THIAMINE HCL 100 MG TABLET (FP) PO SCH (21:45)
[2018-05-10] MEDS: PRENATAL VITAMINS W/ FOLIC ACID TABLET (FP) PO SCH (10:10)
[2018-05-10] MEDS: lamoTRIgine 25 MG TABLET PO SCH ×2 (10:10→21:39)
[2018-05-10] MEDS: BACITRACIN 0.9 GM PACKET TP SCH ×2 (10:10→21:39)
[2018-05-10] MEDS: DIVALPROEX SODIUM 500 MG TABLET E.C. PO SCH ×2 (10:10→21:39)
[2018-05-10] MEDS: ARIPiprazole 15 MG TABLET PO SCH (10:10)
[2018-05-10] MEDS: CITALOPRAM HYDROBROMIDE 20 MG TABLET (FP) PO SCH (10:10)
[2018-05-10] MEDS: DOXYCYCLINE HYCLATE 100 MG TABLET PO SCH ×2 (10:10→17:48)
[2018-05-10] MEDS: MELATONIN 5 MG TABLETS PO PRN (21:39)
[2018-05-10] MEDS: THIAMINE HCL 100 MG TABLET (FP) PO SCH (21:39)
[2018-05-11] MEDS: ARIPiprazole 15 MG TABLET PO SCH (10:12)
[2018-05-11] MEDS: BACITRACIN 0.9 GM PACKET TP SCH ×2 (10:13→21:53)
[2018-05-11] MEDS: CITALOPRAM HYDROBROMIDE 20 MG TABLET (FP) PO SCH (10:13)
[2018-05-11] MEDS: lamoTRIgine 25 MG TABLET PO SCH ×2 (10:13→21:53)
[2018-05-11] MEDS: PRENATAL VITAMINS W/ FOLIC ACID TABLET (FP) PO SCH (10:13)
[2018-05-11] MEDS: DOXYCYCLINE HYCLATE 100 MG TABLET PO SCH ×2 (10:13→17:03)
[2018-05-11] MEDS: DIVALPROEX SODIUM 500 MG TABLET E.C. PO SCH ×2 (10:13→21:53)
[2018-05-11] MEDS: THIAMINE HCL 100 MG TABLET (FP) PO SCH (21:52)
[2018-05-11] MEDS: MELATONIN 5 MG TABLETS PO PRN (21:53)
[2018-05-12] MEDS: BACITRACIN 0.9 GM PACKET TP SCH ×2 (10:22→21:28)
[2018-05-12] MEDS: lamoTRIgine 25 MG TABLET PO SCH ×2 (10:22→21:28)
[2018-05-12] MEDS: PRENATAL VITAMINS W/ FOLIC ACID TABLET (FP) PO SCH (10:22)
[2018-05-12] MEDS: DOXYCYCLINE HYCLATE 100 MG TABLET PO SCH ×2 (10:22→17:04)
[2018-05-12] MEDS: ARIPiprazole 15 MG TABLET PO SCH (10:22)
[2018-05-12] MEDS: CITALOPRAM HYDROBROMIDE 20 MG TABLET (FP) PO SCH (10:22)
[2018-05-12] MEDS: DIVALPROEX SODIUM 500 MG TABLET E.C. PO SCH ×2 (10:22→21:28)
[2018-05-12] MEDS: THIAMINE HCL 100 MG TABLET (FP) PO SCH (21:28)
[2018-05-12] MEDS: MELATONIN 5 MG TABLETS PO PRN (21:29)
[2018-05-13] MEDS: BACITRACIN 0.9 GM PACKET TP SCH ×2 (10:00→21:49)
[2018-05-13] MEDS: ARIPiprazole 15 MG TABLET PO SCH (10:00)
[2018-05-13] MEDS: PRENATAL VITAMINS W/ FOLIC ACID TABLET (FP) PO SCH (10:01)
[2018-05-13] MEDS: CITALOPRAM HYDROBROMIDE 20 MG TABLET (FP) PO SCH (10:01)
[2018-05-13] MEDS: DIVALPROEX SODIUM 500 MG TABLET E.C. PO SCH ×2 (10:01→21:49)
[2018-05-13] MEDS: lamoTRIgine 25 MG TABLET PO SCH ×2 (10:01→21:49)
[2018-05-13] MEDS: DOXYCYCLINE HYCLATE 100 MG TABLET PO SCH ×2 (10:01→17:02)
[2018-05-13] MEDS: THIAMINE HCL 100 MG TABLET (FP) PO SCH (21:49)
[2018-05-13] MEDS: MELATONIN 5 MG TABLETS PO PRN (21:49)
[2018-05-14] MEDS: PRENATAL VITAMINS W/ FOLIC ACID TABLET (FP) PO SCH (09:53)
[2018-05-14] MEDS: CITALOPRAM HYDROBROMIDE 20 MG TABLET (FP) PO SCH (09:53)
[2018-05-14] MEDS: DOXYCYCLINE HYCLATE 100 MG TABLET PO SCH ×2 (09:53→17:22)
[2018-05-14] MEDS: ARIPiprazole 15 MG TABLET PO SCH (09:53)
[2018-05-14] MEDS: BACITRACIN 0.9 GM PACKET TP SCH ×2 (09:53→21:18)
[2018-05-14] MEDS: lamoTRIgine 25 MG TABLET PO SCH ×2 (09:53→21:18)
[2018-05-14] MEDS: DIVALPROEX SODIUM 500 MG TABLET E.C. PO SCH ×2 (09:53→21:18)
[2018-05-14] MEDS: MELATONIN 5 MG TABLETS PO PRN (21:18)
[2018-05-14] MEDS: THIAMINE HCL 100 MG TABLET (FP) PO SCH (21:19)
[2018-05-15] MEDS ORDERED: PT OWN MED DRAWER 7, Y5N ONE (09:44)
[2018-05-15] MEDS: ARIPiprazole 15 MG TABLET PO SCH (10:42)
[2018-05-15] MEDS: BACITRACIN 0.9 GM PACKET TP SCH ×2 (10:42→21:29)
[2018-05-15] MEDS: CITALOPRAM HYDROBROMIDE 20 MG TABLET (FP) PO SCH (10:42)
[2018-05-15] MEDS: DOXYCYCLINE HYCLATE 100 MG TABLET PO SCH ×2 (10:42→17:29)
[2018-05-15] MEDS: PRENATAL VITAMINS W/ FOLIC ACID TABLET (FP) PO SCH (10:42)
[2018-05-15] MEDS: DIVALPROEX SODIUM 500 MG TABLET E.C. PO SCH ×2 (10:42→21:29)
[2018-05-15] MEDS: lamoTRIgine 25 MG TABLET PO SCH ×2 (10:42→21:29)
[2018-05-15] MEDS: THIAMINE HCL 100 MG TABLET (FP) PO SCH (21:29)
[2018-05-15] MEDS: MELATONIN 5 MG TABLETS PO PRN (21:29)
[2018-05-16] MEDS: DOXYCYCLINE HYCLATE 100 MG TABLET PO SCH ×2 (09:33→17:16)
[2018-05-16] MEDS: ARIPiprazole 15 MG TABLET PO SCH (09:33)
[2018-05-16] MEDS: CITALOPRAM HYDROBROMIDE 20 MG TABLET (FP) PO SCH (09:33)
[2018-05-16] MEDS: PRENATAL VITAMINS W/ FOLIC ACID TABLET (FP) PO SCH (09:33)
[2018-05-16] MEDS: BACITRACIN 0.9 GM PACKET TP SCH ×2 (09:33→21:34)
[2018-05-16] MEDS: DIVALPROEX SODIUM 500 MG TABLET E.C. PO SCH ×2 (09:33→21:35)
[2018-05-16] MEDS: lamoTRIgine 25 MG TABLET PO SCH ×2 (09:33→21:34)
[2018-05-16] MEDS: THIAMINE HCL 100 MG TABLET (FP) PO SCH (21:35)
[2018-05-16] MEDS: MELATONIN 5 MG TABLETS PO PRN (21:35)
[2018-05-17] MEDS: lamoTRIgine 25 MG TABLET PO SCH ×2 (09:38→21:25)
[2018-05-17] MEDS: DIVALPROEX SODIUM 500 MG TABLET E.C. PO SCH ×2 (09:38→21:25)
[2018-05-17] MEDS: PRENATAL VITAMINS W/ FOLIC ACID TABLET (FP) PO SCH (09:38)
[2018-05-17] MEDS: CITALOPRAM HYDROBROMIDE 20 MG TABLET (FP) PO SCH (09:38)
[2018-05-17] MEDS: DOXYCYCLINE HYCLATE 100 MG TABLET PO SCH ×2 (09:38→17:34)
[2018-05-17] MEDS: BACITRACIN 0.9 GM PACKET TP SCH ×2 (09:38→21:25)
[2018-05-17] MEDS: ARIPiprazole 15 MG TABLET PO SCH (09:38)
[2018-05-17] MEDS: MELATONIN 5 MG TABLETS PO PRN (21:25)
[2018-05-17] MEDS: THIAMINE HCL 100 MG TABLET (FP) PO SCH (21:25)
[2018-05-18] MEDS: BACITRACIN 0.9 GM PACKET TP SCH ×2 (10:06→21:21)
[2018-05-18] MEDS: ARIPiprazole 15 MG TABLET PO SCH (10:06)
[2018-05-18] MEDS: DIVALPROEX SODIUM 500 MG TABLET E.C. PO SCH ×2 (10:06→21:21)
[2018-05-18] MEDS: DOXYCYCLINE HYCLATE 100 MG TABLET PO SCH ×2 (10:06→18:00)
[2018-05-18] MEDS: lamoTRIgine 25 MG TABLET PO SCH ×2 (10:07→21:21)
[2018-05-18] MEDS: CITALOPRAM HYDROBROMIDE 20 MG TABLET (FP) PO SCH (10:07)
[2018-05-18] MEDS: PRENATAL VITAMINS W/ FOLIC ACID TABLET (FP) PO SCH (10:07)
[2018-05-18] MEDS: THIAMINE HCL 100 MG TABLET (FP) PO SCH (21:21)
[2018-05-18] MEDS: MELATONIN 5 MG TABLETS PO PRN (21:21)
[2018-05-19] MEDS: DOXYCYCLINE HYCLATE 100 MG TABLET PO SCH ×2 (09:51→17:38)
[2018-05-19] MEDS: lamoTRIgine 25 MG TABLET PO SCH ×2 (09:51→21:44)
[2018-05-19] MEDS: ARIPiprazole 15 MG TABLET PO SCH (09:51)
[2018-05-19] MEDS: PRENATAL VITAMINS W/ FOLIC ACID TABLET (FP) PO SCH (09:51)
[2018-05-19] MEDS: CITALOPRAM HYDROBROMIDE 20 MG TABLET (FP) PO SCH (09:51)
[2018-05-19] MEDS: BACITRACIN 0.9 GM PACKET TP SCH ×2 (09:53→21:44)
[2018-05-19] MEDS: DIVALPROEX SODIUM 500 MG TABLET E.C. PO SCH ×2 (09:54→21:44)
[2018-05-19] MEDS: THIAMINE HCL 100 MG TABLET (FP) PO SCH (21:44)
[2018-05-19] MEDS: MELATONIN 5 MG TABLETS PO PRN (21:44)
--- NOTE | 2018-05-20 06:32 | PN ---
Psychiatric Progress Note Vital Signs: Vital Signs Period Temp Pulse Resp BP Sys/[place] Pulse Ox Last 24 Hr 98.0 F 68 18-20 131/85 Date of Session: 05/20/18 Chief Complaint:: Discharge Note HPI: Patient addressing Alcohol and Cocaine Dependence comorbid with Bipolar Disorder Current Medications: Active Medications Generic Name Dose Route Start Last Admin Trade Name Freq PRN Reason Stop Dose Admin Acetaminophen 650 mg 04/23/18 15:37 05/16/18 09:34 Tylenol - PO 650 mg Q4H PRN Administration FEVER Al Hydroxide/Mg Hydroxide 30 ml 04/23/18 15:37 Mylanta Oral Suspension - PO Q6H PRN DYSPEPSIA Aripiprazole 30 mg 04/28/18 10:40 05/19/18 09:51 Abilify PO 30 mg DAILY MARGARITA Administration Bacitracin 0.9 gm 04/23/18 22:00 05/19/18 21:44 Bacitracin - TP 0.9 gm BID MARGARITA Administration Citalopram Hydrobromide 20 mg 04/29/18 10:00 05/19/18 09:51 Celexa - PO 20 mg DAILY MARGARITA Administration Divalproex Sodium 500 mg 04/27/18 22:00 05/19/18 21:44 Depakote - PO 500 mg BID MARGARITA Administration Doxycycline Hyclate 100 mg 04/23/18 18:00 05/19/18 17:38 Vibratab - PO 100 mg BID@1000,1800 MARGARITA Administration Eucalyptus/Menthol/Phenol/Sorbitol 1 each 04/23/18 15:37 Cepastat Lozenge - MM Q4H PRN SORE THROAT Guaifenesin 10 ml 04/23/18 15:37 Robitussin Dm - PO Q6H PRN COUGH Hydroxyzine Pamoate 25 mg 04/23/18 15:37 Vistaril - PO Q4H PRN AGITATION Ibuprofen 400 mg 04/23/18 15:37 Motrin - PO Q6H PRN PAIN LEVEL 4-6 Lamotrigine 25 mg 04/28/18 22:00 05/19/18 21:44 Lamictal - PO 25 mg BID MARGARITA Administration Loperamide HCl 4 mg 04/23/18 15:37 Imodium - PO Q6H PRN DIARRHEA Magnesium Citrate 300 ml 04/23/18 15:37 Citroma - PO Q48H PRN CONSTIPATION Magnesium Hydroxide 30 ml 04/23/18 15:37 Milk Of Magnesia - PO DAILY PRN CONSTIPATION Melatonin 5 mg 04/23/18 22:00 05/19/18 21:44 Melatonin PO 5 mg HS PRN Administration INSOMNIA Multivit/Folic Acid/Iron 1 tab 04/24/18 10:00 05/19/18 09:51 Vitamins ([facility]) - PO 1 tab DAILY MARGARITA Administration Pseudoephedrine/Triprolidine 1 combo 04/23/18 15:37 Actifed - PO TID PRN NASAL CONGESTION Thiamine HCl 100 mg 04/23/18 22:00 05/19/18 21:44 Vitamin B1 - PO 100 mg HS MARGARITA Administration Current Side Effect: No Lab tests ordered: Yes Lab tests reviewed: Yes Provider note:: Patient has completed this program today. He has met his treatment goals and will continue to address his issues in outpatient treatment at [facility] at [address] [place] [address]. Told junior underwriter that from his participation in this program, he has learned the importance of adherence to his outpatient program. He responded well to Abilify 30 mg po daily , Depakote 500 mg po BID, Lamictal 25 mg po BID and Celexa 20 mg po daily. Scripts for 30 days supply of these medications are electronically transmitted to [facility] at [address] [place] [id number]. He is stable for discharge today Total face to face time:: 35 Mental Status Exam - Mental Status Exam Alert and Oriented to: Time, Place, Person Cognitive Function: Fair Patient Appearance: Well Groomed Mood: Hopeful, Euthymic Affect: Appropriate Patient Behavior: Cooperative Speech Pattern: Clear Voice Loudness: Normal Thought Process: Intact, Goal Oriented Thought Disorder: Not Present Hallucinations: Denies Suicidal Ideation: Denies Homicidal Ideation: Denies Insight/Judgement: Fair Sleep: Fair Appetite: Good Muscle strength/Tone: Normal Psychiatric Treatment Plan - Problem List (1) Alcohol dependence Current Visit: Yes (2) Cocaine dependence Current Visit: Yes (3) Bipolar disorder Current Visit: Yes Initial treatment plan: Patient is discharged today and referred to [facility] for outpatient treatment
[2018-05-20 06:39] VITALS: BP 136/84; PULSE 69; TEMP 98.3
[2018-05-20] MEDS: BACITRACIN 0.9 GM PACKET TP SCH (09:01)
[2018-05-20] MEDS: DOXYCYCLINE HYCLATE 100 MG TABLET PO SCH (09:01)
[2018-05-20] MEDS: CITALOPRAM HYDROBROMIDE 20 MG TABLET (FP) PO SCH (09:02)
[2018-05-20] MEDS: DIVALPROEX SODIUM 500 MG TABLET E.C. PO SCH (09:02)
[2018-05-20] MEDS: ARIPiprazole 15 MG TABLET PO SCH (09:02)
[2018-05-20] MEDS: lamoTRIgine 25 MG TABLET PO SCH (09:02)
[2018-05-20] MEDS: PRENATAL VITAMINS W/ FOLIC ACID TABLET (FP) PO SCH (09:02)
== END 2018-05-20 09:05 | disposition home or self-care (01) | DRG 895 ==
LOC: YASAS 12:07 → Y3N 16:59 → UNDODISIN 04-27 18:00 → Y3W 04-27 19:09
PROVIDERS: ATTEND Psychiatry & Neurology Psychiatry
PROC: HZ2ZZZZ Detoxification Services for Substance Abuse Treatment (ICD-10-PCS; principal; 2018-04-23)
PROC: HZ42ZZZ Group Counseling for Substance Abuse Treatment, Cognitive-Behavioral (ICD-10-PCS; 2018-04-27)
DX: F10.230 Alcohol dependence with withdrawal, uncomplicated (principal); F14.20 Cocaine dependence, uncomplicated; F31.9 Bipolar disorder, unspecified; F32.9 Major depressive disorder, single episode, unspecified; S51.851S Open bite of right forearm, sequela; S81.852S Open bite, left lower leg, sequela; W55.01XS Bitten by cat, sequela; Z87.891 Personal history of nicotine dependence; Z87.438 Personal history of other diseases of male genital organs; Z91.5 Personal history of self-harm
CPT/HCPCS: 36415; 73130-TC-RT-FY; 80053; 80164; 81003; 85027; 86593

== ENCOUNTER 2019-01-24 10:04 | Inpatient (IN) | payer OTHER ==
[2019-01-24 12:57] VITALS: BMI 33.4
--- NOTE | 2019-01-24 15:39 | HP ---
CIWA Score Nausea/Vomitin-Mild Nausea/No Vomiting Muscle Tremors: 3 Anxiety: 3 Agitation: 2 Paroxysmal Sweats: 2 Orientation: 0-Oriented Tacttile Disturbances: 0-None Auditory Disturbances: 0-None Visual Disturbances: 0-None Headache: 2-Mild CIWA-Ar Total Score: 13 - Admission Criteria OASAS Guidelines: Admission for Medically Managed Detox: Requires at least one of the followin. CIWA greater than 12 2. Seizures within the past 24 hours 3. Delirium tremens within the past 24 hours 4. Hallucinations within the past 24 hours 5. Acute intervention needed for co occurring medical disorder 6. Acute intervention needed for co occurring psychiatric disorder 7. Severe withdrawal that cannot be handled at a lower level of care (continued vomiting, continued diarrhea, abnormal vital signs) requiring intravenous medication and/or fluids 8. Admission [facility] Chief Complaint: alcohol detox, using crack cocaine Allergies/Adverse Reactions: Allergies Allergy/AdvReac Type Severity Reaction Status Date / Time No Known Allergies Allergy Verified 01/24/19 12:46 History of Present Illness: 58 yo with mental problems- bipolar, migraines, osteoarthritis, here for detox from alcohol and cocaine. Pt last used alcohol this morning. POLLO-0. Pt was last here Apr 2018 for same use disorders. Pt states relapsed almost immediately. Goes to some NA/ AA groups. Does not work is on disability- - pt has not taken meds for several weeks- refer to here Pt has an apartment- was living in [facility]. alcohol- several pints a day, blacks out. no h/o seizures, no DT's crack cocaine- the whole check DUR: shows klonopin #90 from 12/26/09- pt states does not take this ambien-#30 Utox- jeromy, POLLO-0 - Ebola screening Have you traveled outside of the country in the last 21 days: No (N) Have you had contact with anyone from an Ebola affected area: No Do you have a fever: No - Review of Systems Constitutional: No Symptoms Reported EENT: reports: No Symptoms Reported Respiratory: reports: No Symptoms reported Cardiac: reports: No Symptoms Reported GI: reports: No Symptoms Reported : reports: No Symptoms Reported Musculoskeletal: reports: No Symptoms Reported Integumentary: reports: No Symptoms Reported Neuro: reports: No Symptoms reported Endocrine: reports: No Symptoms Reported Hematology: reports: No Symptoms Reported Psychiatric: reports: No Sypmtoms Reported Other Systems: Reviewed and Negative Patient History - Patient Medical History Hx Anemia: No Hx Asthma: No Hx Chronic Obstructive Pulmonary Disease (COPD): No Hx Cancer: No Hx Cardiac Disorders: No Hx Congestive Heart Failure: No Hx Hypertension: No Hx Hypercholesterolemia: No Hx Pacemaker: No HX Cerebrovascular Accident: No Hx Seizures: No Hx Dementia: No Hx Diabetes: No Hx Gastrointestinal Disorders: No Hx Liver Disease: No Hx Genitourinary Disorders: No Hx Sexually Transmitted Disorders: Yes (SYPHILIS) Hx Renal Disease (ESRD): No Hx Thyroid Disease: No Hx Human Immunodeficiency Virus (HIV): No (09/03 last negative) Hx Hepatitis C: No Hx Depression: Yes Hx Suicide Attempt: Yes (X2) Hx Bipolar Disorder: Yes Hx Schizophrenia: No Other Medical History: migraines and arthritis - Patient Surgical History Past Surgical History: Yes Hx Neurologic Surgery: No Hx Cataract Extraction: No Hx Cardiac Surgery: No Hx Lung Surgery: No Hx Breast Surgery: No Hx Breast Biopsy: No Hx Abdominal Surgery: No Hx Appendectomy: No Hx Cholecystectomy: No Hx Genitourinary Surgery: No Hx Section: No Hx Orthopedic Surgery: Yes (torn meniscus, left knee in 2005) Other Surgical History: bilateral inguinal hernia repair in 1989 Anesthesia Reaction: No - PPD History Date: 10/25/17 Results: 0 mm - Smoking Cessation Smoking history: Former smoker Have you smoked in the past 12 months: No Aproximately how many cigarettes per day: 0 If you are a former smoker, when did you quit?: 2010 Cigars Per Day: 0 Hx Chewing Tobacco Use: No Initiated information on smoking cessation: No - Substances abused Alcohol Substance route: Oral Frequency: Daily Amount used: $50 Age of first use: 18 Date of last use: 01/24/19 Crack Substance route: Smoking Frequency: Daily Amount used: $100 Age of first use: 27 Date of last use: 01/23/19 Family Disease History - Family Disease History Family Disease History: CA: Father (PROSTRATE CA-), Mother (UTERINE CA- ), Sister () Admission Physical Exam BHS - Vital Signs Vital Signs: Vital Signs - 24 hr 01/24/19 12:35 Temperature 97.6 F Pulse Rate 62 Respiratory 16 Rate Blood Pressure 125/84 - Physical General Appearance: Yes: Within Normal Limits HEENTM: Yes: Within Normal Limits, EOMI, Normal Voice, MATTHIEU Respiratory: Yes: Within Normal Limits, Chest Non-Tender, Lungs Clear Neck: Yes: Within Normal Limits Cardiology: Yes: Within Normal Limits, Regular Rhythm, Regular Rate Abdominal: Yes: Within Normal Limits, Non Tender, Protuberent Back: Yes: Within Normal Limits, Normal Inspection Musculoskeletal: Yes: Within Normal Limits Extremities: Yes: Within Normal Limits Neurological: Yes: Within Normal Limits, attache II-XII NML intact, Fully Oriented, Alert Integumentary: Yes: Within Normal Limits, Normal Color Lymphatic: Yes: Within Normal Limits - Diagnostic (1) Alcohol dependence Current Visit: No Status: Acute (2) Cocaine dependence Current Visit: No Status: Acute (3) Bipolar 1 disorder Current Visit: No Status: Chronic Breathalyzer - Breathalyzer Breathalyzer: 0 Urine Drug Screen - Test Device Lot number: [id number] Expiration date: 10/16/20 - Control Is test valid?: Yes - Results Drug screen NEGATIVE: No Urine drug screen results: JEROMY-Cocaine Inpatient Rehab Admission - Rehab Decision to Admit Inpatient rehab admission?: No
[2019-01-24] MEDS ORDERED: IBUPROFEN 400 MG TABLET (FP) PO PRN (15:42)
[2019-01-24] MEDS ORDERED: MELATONIN 5 MG TABLETS PO PRN (15:42)
[2019-01-24] MEDS ORDERED: MAGNESIUM HYDROX 2400MG/30ML ORAL SUSPENSION 30 ML CUP PO PRN (15:42)
[2019-01-24] MEDS ORDERED: traZODone HCL 50 MG TABLET (FP) PO PRN (15:42)
[2019-01-24] MEDS ORDERED: DICYCLOMINE HCL 10 MG CAPSULE PO PRN (15:42)
[2019-01-24] MEDS ORDERED: ACETAMINOPHEN 325 MG TABLET (FP) PO PRN ×2 (15:42)
[2019-01-24] MEDS ORDERED: ONDANSETRON *ODT* 4 MG TABLET SL PRN (15:42)
[2019-01-24] MEDS ORDERED: hydrOXYzine PAMOATE 25 MG CAPSULE (FP) PO PRN (15:42)
[2019-01-24] MEDS ORDERED: BISMUTH SUBSALICYLATE 524 MG/30 ML UD PO PRN (15:42)
[2019-01-24] MEDS ORDERED: chlordiazePOXIDE HCL 25 MG CAPSULE PO PRN (15:42)
[2019-01-24] MEDS ORDERED: MAGNESIUM CITRATE 300 ML BOTTLE PO PRN (15:42)
[2019-01-24] MEDS ORDERED: METHOCARBAMOL 500 MG TABLET PO PRN (15:42)
[2019-01-24] MEDS ORDERED: MENTHOL/PHENOL 1 EACH UD MM PRN (15:42)
[2019-01-24] MEDS ORDERED: MAG HYDROX/AL HYDROX/SIMETH 30 ML UNIT-DOSE CUP PO PRN (15:42)
[2019-01-24] MEDS: chlordiazePOXIDE HCL 25 MG CAPSULE PO SCH ×2 (17:29→22:07)
[2019-01-24] MEDS: THIAMINE HCL 100 MG TABLET (FP) PO SCH (22:07)
[2019-01-25] MEDS: chlordiazePOXIDE HCL 25 MG CAPSULE PO SCH ×4 (06:38→22:19)
--- NOTE | 2019-01-25 09:33 | CONSULT ---
[facility] Psychiatric Consult - Data Date of interview: 01/25/19 Admission source: Self-referred Identifying data: Mr Les Rodríguez is a 58 years olddivorced Black male, father of 3 children, unemployed receiving SSD, domiciled seeking detox treatment for alcohol and cocaine Substance Abuse History: Reports history of alcohol and crack cocaine use. Refer to addction counselor's summary for furher information Medical History: Significant for migraine, osteoarthritis both knees, history of right & left inguinal hernia repair in 1989 and orthosurgry to repair meniscus left knee in 2005. Psychiatric History: Reports that his first psychiatric contact was in his mid 20's when he was admitted to [facility] for 30 days because of suicidal attempt via overdose. He endorsed racing thoughts, impulsivity, iritability, difficulty sleeping as well. He said that he was diagnosed with Bipolar Disorder and started on psychotropic medications. Report a second admission to [facility] months later. Reports seeing Dr Cleveland, staff psychiatrist at [facility] and he is prescribed Lexapro 20 mg/day, Abilify 30 mg/day, Depakote 500 mg/bid, Lamictal 150 mg/bid and Ambien 10 mg/hs. Reports 2 previous suicidal attempts via ovrdose and self-mutilation. At present, denies experiencing psychotic, manic symptoms, S/H ideations. However, reports feeling depressed, irritable and sleeping poorly Physical/Sexual Abuse/Trauma History: Denies history of emotional, physical or sexual abuse as well as DV relationship. Reports serving in the [employer] from 1979 to 1983. Claims honorable discharge Additional Comment: Denies criminal history Mental Status Exam - Mental Status Exam Alert and Oriented to: Time, Place, Person Cognitive Function: Fair Patient Appearance: Well Groomed Mood: Depressed, Irritable Affect: Appropriate Patient Behavior: Cooperative Voice Loudness: Normal Thought Process: Intact, Goal Oriented Thought Disorder: Not Present Hallucinations: Denies Suicidal Ideation: Denies Homicidal Ideation: Denies Insight/Judgement: Poor Sleep: Poorly Appetite: Poor Muscle strength/Tone: Normal Gait/Station: Normal Psychiatric Findings - Problem List ([place] 1, 2,3) (1) Bipolar disorder Current Visit: Yes Status: Chronic (2) Substance induced mood disorder Current Visit: No Status: Acute (3) Substance-induced sleep disorder Current Visit: No Status: Acute (4) Alcohol dependence with uncomplicated withdrawal Current Visit: No Status: Acute (5) Cocaine dependence Current Visit: No Status: Acute (6) Migraine headache Current Visit: No Status: Chronic Qualifiers: Migraine type: unspecified Status migrainosus presence: without status migrainosus Intractability: not intractable Qualified Code(s): G43.909 - Migraine, unspecified, not intractable, without status migrainosus (7) Osteoarthritis of both knees Current Visit: Yes Status: Chronic - Initial Treatment Plan Initial Treatment Plan: [facility] contacted. Scripts for Ambien 10 mg/hs 12/26/18, Klonopin 1 mg/tid 12/26/18, Lexapro 10 mg/day 11/30/18, Seroquel 25 mg/hs12/26/18, Trazadone 50 mg/hs 12/26/18, Wellbutrin XL 300 mg/day , Abilify 30 mg/day 10/28/18, Depakote 500 mg/bid 10/28/18, Lamictal 150 mg/ bid 10/07/18 and Risperal 1 mg/bid which was not picked yet. Will resume Wellbutrin XL 300 mg/day, Risperdal 1 mg/bid, Seroquel 25 mg/hs. Continue inpatirnt detoxification
[2019-01-25] MEDS: PRENATAL VITAMINS W/ FOLIC ACID TABLET (FP) PO SCH (10:37)
[2019-01-25] MEDS: risperiDONE 1 MG TABLET (FP) PO SCH ×2 (10:39→22:19)
--- NOTE | 2019-01-25 11:30 | PN ---
S CIWA - CIWA Score Nausea/Vomitin-Mild Nausea/No Vomiting Muscle Tremors: 3 Anxiety: 4-Mod. Anxious/Guarded Agitation: 3 Paroxysmal Sweats: 3 Orientation: 0-Oriented Tacttile Disturbances: 0-None Auditory Disturbances: 0-None Visual Disturbances: 0-None Headache: 0-None Present CIWA-Ar Total Score: 14 S Progress Note (SOAP) Subjective: shakes sweats interrupted sleep body aches nausea Objective: 01/25/19 11:25 Vital Signs Temperature 97.5 F L 01/25/19 09:37 Pulse Rate 55 L 01/25/19 09:37 Respiratory Rate 18 01/25/19 09:37 Blood Pressure 112/64 01/25/19 09:37 O2 Sat by Pulse Oximetry (%) labs pending aaox3 ambulating no acute distress Assessment: 01/25/19 11:30 withdrawals Plan: continue detox increase fluids pending labs
[2019-01-25 12:44] LABS: HEMATOCRIT 40.4 % (35.4-49); HEMOGLOBIN 13.4 GM/dL (11.7-16.9); MCH 27.5 pg (25.7-33.7); MCHC 33.2 g/dl (32.0-35.9); MEAN PLT VOLUME 9.4 fl (7.5-11.1); PLATELET COUNT 248 K/MM3 (134-434); RBC 4.87 M/mm3 (4.00-5.60); RDW 14.4 % (11.9-15.9); WHITE BLOOD COUNT 5.2 K/mm3 (4.0-10.0)
[2019-01-25 12:56] LABS: URINE APPEARANCE CLEAR; URINE BILIRUBIN NEGATIVE (NEGATIVE); URINE COLOR YELLOW; URINE GLUCOSE (UA) NEGATIVE (NEGATIVE); URINE KETONE NEGATIVE (NEGATIVE); URINE LEUK ESTERASE NEGATIVE (NEGATIVE); URINE NITRITE NEGATIVE (NEGATIVE); URINE PROTEIN NEGATIVE (NEGATIVE)
[2019-01-25 13:04] LABS: ALBUMIN 3.6 g/dl (3.4-5.0); BILIRUBIN,TOTAL 0.3 mg/dL (0.2-1); BLOOD UREA NITROGEN 8.8 mg/dL (7-18); CALCIUM 8.7 mg/dL (8.5-10.1); CREATININE 1.1 mg/dL (0.55-1.3); POTASSIUM 3.8 mmol/L (3.5-5.1); TOT PROT 7.5 g/dl (6.4-8.2)
[2019-01-25] MEDS ORDERED: SUVOREXANT 10 MG TABLET PO PRN (22:00)
[2019-01-25] MEDS: THIAMINE HCL 100 MG TABLET (FP) PO SCH (22:19)
[2019-01-25] MEDS: QUEtiapine FUMARATE 25 MG TABLET (FP) PO SCH (22:19)
[2019-01-26] MEDS: chlordiazePOXIDE HCL 25 MG CAPSULE PO SCH ×4 (05:21→22:27)
[2019-01-26] MEDS: PRENATAL VITAMINS W/ FOLIC ACID TABLET (FP) PO SCH (10:33)
[2019-01-26] MEDS: risperiDONE 1 MG TABLET (FP) PO SCH ×2 (10:33→22:27)
--- NOTE | 2019-01-26 11:13 | PN ---
S CIWA - CIWA Score Nausea/Vomitin-No Nausea/No Vomiting Muscle Tremors: 3 Anxiety: 2 Agitation: 3 Paroxysmal Sweats: 2 Orientation: 0-Oriented Tacttile Disturbances: 0-None Auditory Disturbances: 0-None Visual Disturbances: 0-None Headache: 0-None Present CIWA-Ar Total Score: 10 S Progress Note (SOAP) Subjective: sweats tired feeling a bit better interrupted sleep Objective: 01/26/19 11:12 Vital Signs Temperature 98.1 F 01/26/19 09:46 Pulse Rate 70 01/26/19 09:46 Respiratory Rate 18 01/26/19 09:46 Blood Pressure 124/64 01/26/19 09:46 O2 Sat by Pulse Oximetry (%) Laboratory Tests 01/25/19 01/25/19 01/25/19 09:00 09:00 09:00 WBC 5.2 RBC 4.87 Hgb 13.4 Hct 40.4 D MCV 83.0 MCH 27.5 MCHC 33.2 RDW 14.4 Plt Count 248 D MPV 9.4 Sodium 140 Potassium 3.8 Chloride 105 Carbon Dioxide 27 Anion Gap 8 BUN 8.8 Creatinine 1.1 Est GFR (CKD-EPI)AfAm 86.52 Est GFR (CKD-EPI)NonAf 74.65 Random Glucose 91 Calcium 8.7 Total Bilirubin 0.3 AST 10 L ALT 14 Alkaline Phosphatase 90 Total Protein 7.5 Albumin 3.6 Urine Color Urine Appearance Urine pH Ur Specific [place] Urine Protein Urine Glucose (UA) Urine Ketones Urine Blood Urine Nitrite Urine Bilirubin Urine Urobilinogen Ur Leukocyte Esterase RPR Titer HIV 1&2 Ag/Ab, 4th Gen HIV 1&2 Antibody Screen Cancelled HIV P24 Antigen Cancelled 01/25/19 01/25/19 01/25/19 09:00 09:30 10:00 WBC RBC Hgb Hct MCV MCH MCHC RDW Plt Count MPV Sodium Potassium Chloride Carbon Dioxide Anion Gap BUN Creatinine Est GFR (CKD-EPI)AfAm Est GFR (CKD-EPI)NonAf Random Glucose Calcium Total Bilirubin AST ALT Alkaline Phosphatase Total Protein Albumin Urine Color Yellow Urine Appearance Clear Urine pH 6.0 Ur Specific [place] 1.019 Urine Protein Negative Urine Glucose (UA) Negative Urine Ketones Negative Urine Blood Negative Urine Nitrite Negative Urine Bilirubin Negative Urine Urobilinogen 1.0 Ur Leukocyte Esterase Negative RPR Titer Nonreactive HIV 1&2 Ag/Ab, 4th Gen Non-reactive HIV 1&2 Antibody Screen HIV P24 Antigen labs noted aaox3 ambulating no acute distress Assessment: 01/26/19 11:13 mild withdrawals Plan: continue detox increase fluids
[2019-01-26] MEDS: THIAMINE HCL 100 MG TABLET (FP) PO SCH (22:27)
[2019-01-26] MEDS: QUEtiapine FUMARATE 25 MG TABLET (FP) PO SCH (22:27)
[2019-01-27] MEDS ORDERED: chlordiazePOXIDE HCL 10 MG CAPSULE PO PRN
[2019-01-27] MEDS: chlordiazePOXIDE HCL 10 MG CAPSULE PO SCH ×4 (06:00→22:20)
--- NOTE | 2019-01-27 10:23 | PN ---
[facility] CIWA - CIWA Score Nausea/Vomitin-No Nausea/No Vomiting Muscle Tremors: 3 Anxiety: 2 Agitation: 2 Paroxysmal Sweats: 2 Orientation: 0-Oriented Tacttile Disturbances: 0-None Auditory Disturbances: 0-None Visual Disturbances: 0-None Headache: 0-None Present CIWA-Ar Total Score: 9 S Progress Note (SOAP) Subjective: sweats shakes body aches Objective: 01/27/19 10:22 Vital Signs Temperature 98.4 F 01/27/19 09:35 Pulse Rate 81 01/27/19 09:35 Respiratory Rate 20 01/27/19 09:35 Blood Pressure 125/76 01/27/19 09:35 O2 Sat by Pulse Oximetry (%) aaox3 ambulating no acute distress Assessment: 01/27/19 10:22 mild withdrawals Plan: continue detox
[2019-01-27] MEDS: PRENATAL VITAMINS W/ FOLIC ACID TABLET (FP) PO SCH (10:41)
[2019-01-27] MEDS: risperiDONE 1 MG TABLET (FP) PO SCH ×2 (10:41→22:20)
[2019-01-27] MEDS: THIAMINE HCL 100 MG TABLET (FP) PO SCH (22:20)
[2019-01-27] MEDS: QUEtiapine FUMARATE 25 MG TABLET (FP) PO SCH (22:20)
[2019-01-28] MEDS: chlordiazePOXIDE HCL 10 MG CAPSULE PO SCH ×2 (06:56→16:56)
[2019-01-28] MEDS: risperiDONE 1 MG TABLET (FP) PO SCH ×2 (10:21→21:48)
[2019-01-28] MEDS: PRENATAL VITAMINS W/ FOLIC ACID TABLET (FP) PO SCH (10:21)
--- NOTE | 2019-01-28 12:20 | PN ---
S CIWA - CIWA Score Nausea/Vomitin-No Nausea/No Vomiting Muscle Tremors: 2 Anxiety: 1-Mildly Anxious Agitation: 1-Slight > Activity Paroxysmal Sweats: No Perspiration Orientation: 0-Oriented Tacttile Disturbances: 0-None Auditory Disturbances: 0-None Visual Disturbances: 0-None Headache: 0-None Present CIWA-Ar Total Score: 4 BHS Progress Note (SOAP) Subjective: feeling better little anxiety Objective: 01/28/19 12:19 Vital Signs Temperature 98.2 F 01/28/19 09:28 Pulse Rate 80 01/28/19 09:28 Respiratory Rate 18 01/28/19 09:28 Blood Pressure 137/77 01/28/19 09:28 O2 Sat by Pulse Oximetry (%) aaox3 lying in bed no acute distress Assessment: 01/28/19 12:19 mild withdrawal sx Plan: continue detox d/c in am
[2019-01-28] MEDS: QUEtiapine FUMARATE 25 MG TABLET (FP) PO SCH (21:48)
[2019-01-28] MEDS: THIAMINE HCL 100 MG TABLET (FP) PO SCH (21:48)
[2019-01-29] MEDS ORDERED: chlordiazePOXIDE HCL 10 MG CAPSULE PO ONE (05:00)
--- NOTE | 2019-01-29 09:39 | DS ---
[facility] Detox Discharge Summary Admission Date: 01/24/19 Discharge Date: 01/29/19 - History Present History: Alcohol Dependence, Cannabis Dependence, Cocaine Dependence, Pcp Dependence - Physical Exam Results Vital Signs: Vital Signs Temperature 97.5 F L 01/29/19 06:52 Pulse Rate 65 01/29/19 06:52 Respiratory Rate 20 01/29/19 06:52 Blood Pressure 111/54 L 01/29/19 06:52 O2 Sat by Pulse Oximetry (%) Pertinent Admission Physical Exam Findings: pt arrived in withdrawals Laboratory Tests 01/25/19 01/25/19 01/25/19 09:00 09:00 09:00 WBC 5.2 RBC 4.87 Hgb 13.4 Hct 40.4 D MCV 83.0 MCH 27.5 MCHC 33.2 RDW 14.4 Plt Count 248 D MPV 9.4 Sodium 140 Potassium 3.8 Chloride 105 Carbon Dioxide 27 Anion Gap 8 BUN 8.8 Creatinine 1.1 Est GFR (CKD-EPI)AfAm 86.52 Est GFR (CKD-EPI)NonAf 74.65 Random Glucose 91 Calcium 8.7 Total Bilirubin 0.3 AST 10 L ALT 14 Alkaline Phosphatase 90 Total Protein 7.5 Albumin 3.6 Urine Color Urine Appearance Urine pH Ur Specific [place] Urine Protein Urine Glucose (UA) Urine Ketones Urine Blood Urine Nitrite Urine Bilirubin Urine Urobilinogen Ur Leukocyte Esterase RPR Titer HIV 1&2 Ag/Ab, 4th Gen HIV 1&2 Antibody Screen Cancelled HIV P24 Antigen Cancelled TB (QFT) Incubation TB Test (QFT) Nil TB Test (QFT) Mitogen TB Test (QFT) Antigen TB Test (QFT) TB Positive Criteria 01/25/19 01/25/19 01/25/19 09:00 09:00 09:30 WBC RBC Hgb Hct MCV MCH MCHC RDW Plt Count MPV Sodium Potassium Chloride Carbon Dioxide Anion Gap BUN Creatinine Est GFR (CKD-EPI)AfAm Est GFR (CKD-EPI)NonAf Random Glucose Calcium Total Bilirubin AST ALT Alkaline Phosphatase Total Protein Albumin Urine Color Yellow Urine Appearance Clear Urine pH 6.0 Ur Specific [place] 1.019 Urine Protein Negative Urine Glucose (UA) Negative Urine Ketones Negative Urine Blood Negative Urine Nitrite Negative Urine Bilirubin Negative Urine Urobilinogen 1.0 Ur Leukocyte Esterase Negative RPR Titer Nonreactive HIV 1&2 Ag/Ab, 4th Gen HIV 1&2 Antibody Screen HIV P24 Antigen TB (QFT) Incubation TB Test (QFT) Nil 0.02 TB Test (QFT) Mitogen >10.00 TB Test (QFT) Antigen 0.02 TB Test (QFT) Negative TB Positive Criteria 01/25/19 10:00 WBC RBC Hgb Hct MCV MCH MCHC RDW Plt Count MPV Sodium Potassium Chloride Carbon Dioxide Anion Gap BUN Creatinine Est GFR (CKD-EPI)AfAm Est GFR (CKD-EPI)NonAf Random Glucose Calcium Total Bilirubin AST ALT Alkaline Phosphatase Total Protein Albumin Urine Color Urine Appearance Urine pH Ur Specific [place] Urine Protein Urine Glucose (UA) Urine Ketones Urine Blood Urine Nitrite Urine Bilirubin Urine Urobilinogen Ur Leukocyte Esterase RPR Titer HIV 1&2 Ag/Ab, 4th Gen Non-reactive HIV 1&2 Antibody Screen HIV P24 Antigen TB (QFT) Incubation TB Test (QFT) Nil TB Test (QFT) Mitogen TB Test (QFT) Antigen TB Test (QFT) TB Positive Criteria labs noted aaox3 ambulating no acute distress no s/s of withdrawals - Treatment Hospital Course: Detox Protocol Followed, Detoxed Safely, Responded well, Discharged Condition Good, Rehab Referral Accepted Patient has Accepted a Rehab Referral to: [facility] - Medication Discharge Medications: Ambulatory Orders Escitalopram Oxalate [Lexapro -] 20 mg PO DAILY #30 tablet 07/21/17 Aripiprazole [Abilify -] 30 mg PO DAILY 10/23/17 Divalproex [Depakote -] 500 mg PO BID 10/23/17 Lamotrigine [Lamictal] 150 mg PO BID 10/23/17 Sumatriptan Succinate [Imitrex -] 50 mg PO DAILY PRN 10/26/17 Citalopram Hydrobromide [Celexa -] 20 mg PO DAILY #30 tablet 05/20/18 - Diagnosis (1) Bipolar disorder Current Visit: Yes Status: Chronic (2) Osteoarthritis of both knees Current Visit: Yes Status: Chronic (3) Alcohol dependence with uncomplicated withdrawal Current Visit: Yes Status: Chronic (4) Cannabis dependence Current Visit: Yes Status: Chronic (5) Cat bite of left lower leg Current Visit: No Status: Acute Qualifiers: Encounter type: sequela Qualified Code(s): S81.852S - Open bite, left lower leg, sequela; W55.01XS - Bitten by cat, sequela (6) Cocaine dependence with withdrawal Current Visit: Yes Status: Chronic (7) Insomnia Current Visit: No Status: Acute (8) PCP (phencyclidine) abuse Current Visit: Yes Status: Chronic (9) Substance induced mood disorder Current Visit: No Status: Acute (10) Substance-induced sleep disorder Current Visit: No Status: Acute (11) Bipolar disorder Current Visit: No Status: Chronic (12) Cat bite of right forearm Current Visit: No Status: Chronic Qualifiers: Encounter type: sequela Qualified Code(s): S51.851S - Open bite of right forearm, sequela; W55.01XS - Bitten by cat, sequela (13) Depression Current Visit: No Status: Chronic (14) H/O cluster headache Current Visit: No Status: Chronic - AMA Did Patient Leave Against Medical Advice: No
[2019-01-29] MEDS: PRENATAL VITAMINS W/ FOLIC ACID TABLET (FP) PO SCH (09:58)
[2019-01-29] MEDS: risperiDONE 1 MG TABLET (FP) PO SCH (09:59)
[2019-01-29 14:01] VITALS: BP 128/84; PULSE 95; TEMP 98.1
--- NOTE | 2019-01-30 15:20 | EKG ---
Test Reason : Blood Pressure : / mmHG Vent. Rate : 085 BPM Atrial Rate : 085 BPM P-R Int : 158 ms QRS Dur : 090 ms QT Int : 384 ms P-R-T Axes : 062 -18 -55 degrees QTc Int : 456 ms SINUS RHYTHM WITH OCCASIONAL PREMATURE VENTRICULAR COMPLEXES AND FUSION COMPLEXES SEPTAL INFARCT (CITED ON OR BEFORE 05-SEP-2016) ABNORMAL ECG WHEN COMPARED WITH ECG OF 23-OCT-2017 13:40, FUSION COMPLEXES ARE NOW PRESENT PREMATURE VENTRICULAR COMPLEXES ARE NOW PRESENT Confirmed by MD RAYMOND, MADIE ([id number]) on 01/30/2019 3:19:49 PM Referred By: STEPHANIE GALEAS Confirmed By:MADIE ANDRADE MD
== END 2019-01-29 14:10 | disposition other institution (70) | DRG 897 ==
LOC: YASAS 10:04 → Y6N 16:19
PROVIDERS: ADMIT Surgery; ATTEND Surgery
PROC: HZ2ZZZZ Detoxification Services for Substance Abuse Treatment (ICD-10-PCS; principal; 2019-01-24)
DX: F10.230 Alcohol dependence with withdrawal, uncomplicated (principal); F14.20 Cocaine dependence, uncomplicated; F16.20 Hallucinogen dependence, uncomplicated; F19.282 Other psychoactive substance dependence with psychoactive substance-induced sleep disorder; F12.20 Cannabis dependence, uncomplicated; F19.24 Other psychoactive substance dependence with psychoactive substance-induced mood disorder; F31.9 Bipolar disorder, unspecified; G47.00 Insomnia, unspecified; G43.909 Migraine, unspecified, not intractable, without status migrainosus; M17.0 Bilateral primary osteoarthritis of knee
CPT/HCPCS: 36415; 80053; 81003; 85027; 86480; 86593; 87389; 93005; 93010; J2794

== ENCOUNTER 2019-06-08 12:17 | Inpatient (IN) | payer OTHER ==
[2019-06-08 14:09] VITALS: BMI 35.2
--- NOTE | 2019-06-08 15:07 | HP ---
CIWA Score Nausea/Vomitin-No Nausea/No Vomiting Muscle Tremors: 2 Anxiety: 2 Agitation: 1-Slight > Activity Paroxysmal Sweats: 1-Minimal Palms Moist Orientation: 0-Oriented Tacttile Disturbances: 0-None Auditory Disturbances: 0-None Visual Disturbances: 0-None Headache: 4-Moderately Severe CIWA-Ar Total Score: 10 - Admission Criteria OASAS Guidelines: Admission for Medically Managed Detox: Requires at least one of the followin. CIWA greater than 12 2. Seizures within the past 24 hours 3. Delirium tremens within the past 24 hours 4. Hallucinations within the past 24 hours 5. Acute intervention needed for co occurring medical disorder 6. Acute intervention needed for co occurring psychiatric disorder 7. Severe withdrawal that cannot be handled at a lower level of care (continued vomiting, continued diarrhea, abnormal vital signs) requiring intravenous medication and/or fluids 8. Patient presents the following: Acute intervention needed for co-occurring med or psych disorder Admission Criteria Met: Admission criteria met Admitting History and Physical - Admission History of Present Illness: 58 yo m w/ PMH bipolar I, depression who comes into [facility] for etoh detox. The patient endorses drinking 2 pints of vodka and a 2x 24oz beers daily since he was 19. Last drink was this morning. He endorses blackouts but denies seizures in the past. The patient was sober since last January until the beginning of May, when he began to drink again due to a in the family. Patient endorses smoking $1000 of crack over 2 days. He does this once per month. His last use was on the 3rd and 4th of this month. He first started using in his 20's. Utox negative POLLO .017 CIWA 10 Will admit for detox given elevated CIWA with psych comorbidities. Patient has a history of 2 suicide attempts 20 years ago. No suicidal or homicidal ideation at this time. History Source: Patient Limitations to Obtaining History: No Limitations - Past Medical History Psych: Yes: Addictions, Anxiety, Bipolar, Depression Musculoskeletal: Yes: Osteoarthritis (knee b/l) - Smoking History Smoking history: Former smoker Have you smoked in the past 12 months: No Aproximately how many cigarettes per day: 0 If you are a former smoker, when did you quit?: 2010 - Alcohol/Substance Use Hx Alcohol Use: Yes (2 pints of vodka and a couple of 40's (beer) on most days) Admission ROS S - [facility] Allergies/Adverse Reactions: Allergies Allergy/AdvReac Type Severity Reaction Status Date / Time No Known Allergies Allergy Verified 06/08/19 14:06 - Ebola screening Have you traveled outside of the country in the last 21 days: No Have you had contact with anyone from an Ebola affected area: No Do you have a fever: No - Review of Systems Constitutional: Chills, Malaise EENT: reports: No Symptoms Reported Respiratory: reports: No Symptoms reported Cardiac: reports: No Symptoms Reported GI: reports: No Symptoms Reported : reports: No Symptoms Reported Neuro: reports: Headache, Tremors Psychiatric: reports: Judgement Intact, Orientated x3, Anxious Patient History - Patient Medical History Hx Anemia: No Hx Asthma: No Hx Chronic Obstructive Pulmonary Disease (COPD): No Hx Cancer: No Hx Cardiac Disorders: No Hx Congestive Heart Failure: No Hx Hypertension: No Hx Hypercholesterolemia: No Hx Pacemaker: No HX Cerebrovascular Accident: No Hx Seizures: No Hx Dementia: No Hx Diabetes: No Hx Gastrointestinal Disorders: No Hx Liver Disease: No Hx Genitourinary Disorders: No Hx Sexually Transmitted Disorders: No Hx Renal Disease (ESRD): No Hx Thyroid Disease: No Hx Human Immunodeficiency Virus (HIV): No (09/03 last negative) Hx Hepatitis C: No Hx Depression: Yes Hx Suicide Attempt: Yes Hx Bipolar Disorder: Yes Hx Schizophrenia: No - Patient Surgical History Past Surgical History: Yes Hx Neurologic Surgery: No Hx Cataract Extraction: No Hx Cardiac Surgery: No Hx Lung Surgery: No Hx Breast Surgery: No Hx Breast Biopsy: No Hx Abdominal Surgery: No Hx Appendectomy: No Hx Cholecystectomy: No Hx Genitourinary Surgery: No Hx Section: No Hx Orthopedic Surgery: Yes (torn meniscus, left knee in 2005) Other Surgical History: bilateral inguinal hernia repair in 1989 Anesthesia Reaction: No - PPD History Date: 10/25/17 Results: 0 mm - Smoking Cessation Smoking history: Former smoker Have you smoked in the past 12 months: No Aproximately how many cigarettes per day: 0 If you are a former smoker, when did you quit?: 2010 Cigars Per Day: 0 Hx Chewing Tobacco Use: No Initiated information on smoking cessation: No - Substances abused Alcohol Substance route: Oral Frequency: Daily Amount used: beer- 2-4 40oz bts/ 2 pts vodka Age of first use: 19 Date of last use: 06/08/19 Crack Substance route: Smoking Frequency: Daily Amount used: $100 Age of first use: 27 Date of last use: 06/03/19 Admission Physical Exam BHS - Vital Signs Vital Signs: Vital Signs - 24 hr 06/08/19 06/08/19 14:06 14:39 Temperature 97 F L 97 F L Pulse Rate 96 H 96 H Respiratory 18 18 Rate Blood Pressure 153/106 H 153/106 H - Physical General Appearance: Yes: Mild Distress, Anxious HEENTM: Yes: EOMI, Normal ENT Inspection, MATTHIEU Respiratory: Yes: Chest Non-Tender, Lungs Clear, Normal Breath Sounds Neck: Yes: Trachea in good position Cardiology: Yes: Regular Rhythm, Regular Rate, S1, S2. No: JVD, Murmur, Gallop/ S3, Gallop/S4 Abdominal: Yes: Normal Bowel Sounds, Non Tender, Flat, Soft Neurological: Yes: landing signal officer II-XII NML intact, Fully Oriented, Alert, Motor Strength 5/5, Normal Mood/Affect, Normal Response Integumentary: Yes: Normal Color, Dry, Warm - Diagnostic (1) Crack cocaine use Current Visit: Yes Status: Acute (2) Alcohol dependence with uncomplicated withdrawal Current Visit: No Status: Chronic (3) Bipolar disorder Current Visit: No Status: Chronic (4) Depression Current Visit: No Status: Chronic (5) Osteoarthritis of both knees Current Visit: No Status: Chronic Breathalyzer - Breathalyzer Breathalyzer: 0.17 Urine Drug Screen - Test Device Lot number: [id number] Expiration date: 12/16/20 - Control Is test valid?: Yes - Results Drug screen NEGATIVE: Yes Urine drug screen results: RONNIE-Cocaine Inpatient Rehab Admission - Rehab Decision to Admit Inpatient rehab admission?: No
[2019-06-08] MEDS ORDERED: ACETAMINOPHEN 325 MG TABLET (FP) PO PRN ×2 (15:14)
[2019-06-08] MEDS ORDERED: MAGNESIUM CITRATE 300 ML BOTTLE PO PRN (15:14)
[2019-06-08] MEDS ORDERED: MAG HYDROX/AL HYDROX/SIMETH 30 ML UNIT-DOSE CUP PO PRN (15:14)
[2019-06-08] MEDS ORDERED: hydrOXYzine PAMOATE 25 MG CAPSULE (FP) PO PRN (15:14)
[2019-06-08] MEDS ORDERED: BISMUTH SUBSALICYLATE 262 MG/15 ML BTL PO PRN (15:14)
[2019-06-08] MEDS ORDERED: IBUPROFEN 400 MG TABLET (FP) PO PRN (15:14)
[2019-06-08] MEDS ORDERED: MENTHOL/PHENOL 1 EACH UD MM PRN (15:14)
[2019-06-08] MEDS ORDERED: diazePAM 5 MG TABLET PO PRN (15:14)
[2019-06-08] MEDS ORDERED: MAGNESIUM HYDROX 2400MG/30ML ORAL SUSPENSION 30 ML CUP PO PRN (15:14)
[2019-06-08] MEDS ORDERED: diazePAM 5 MG TABLET PO ONE (15:55)
[2019-06-08 17:38] LABS: HEMATOCRIT 42.6 % (35.4-49); HEMOGLOBIN 13.9 GM/dL (11.7-16.9); MCH 26.1 pg (25.7-33.7); MCHC 32.7 g/dl (32.0-35.9); MEAN CELL VOLUME 79.9 fl (80-96); MEAN PLT VOLUME 8.7 fl (7.5-11.1); PLATELET COUNT 319 K/MM3 (134-434); RBC 5.34 M/mm3 (4.00-5.60); RDW 14.2 % (11.9-15.9); WHITE BLOOD COUNT 6.7 K/mm3 (4.0-10.0)
[2019-06-08] MEDS: diazePAM 5 MG TABLET PO SCH ×2 (17:47→22:35)
[2019-06-08 17:49] LABS: ALBUMIN 4.2 g/dl (3.4-5.0); BILIRUBIN,TOTAL 0.5 mg/dL (0.2-1); BLOOD UREA NITROGEN 9.9 mg/dL (7-18); CALCIUM 8.6 mg/dL (8.5-10.1); CREATININE 1.1 mg/dL (0.55-1.3); POTASSIUM 3.8 mmol/L (3.5-5.1); TOT PROT 8.5 g/dl (6.4-8.2)
--- NOTE | 2019-06-08 19:45 | PN ---
Teaching Attending Note Name of Resident: Mike Noriega ATTENDING PHYSICIAN STATEMENT I saw and evaluated the patient. I reviewed the resident's note and discussed the case with the resident. I agree with the resident's findings and plan as documented. SUBJECTIVE: 58 y.o. male here for etoh detox PMH bipolar I, depression OBJECTIVE: [email or web address] Vital Signs - 24 hr 06/08/19 06/08/19 06/08/19 14:06 14:39 17:02 Temperature 97 F L 97 F L 99.1 F Pulse Rate 96 H 96 H 85 Respiratory 18 18 18 Rate Blood Pressure 153/106 H 153/106 H 132/86 ASSESSMENT AND PLAN: AUD - Valium detox
[2019-06-08] MEDS: MELATONIN 5 MG TABLETS PO PRN (22:35)
[2019-06-08] MEDS: THIAMINE HCL 100 MG TABLET (FP) PO SCH (22:35)
[2019-06-08] MEDS: METHOCARBAMOL 500 MG TABLET PO PRN (22:36)
[2019-06-09] MEDS: diazePAM 5 MG TABLET PO SCH ×3 (05:15→22:13)
--- NOTE | 2019-06-09 09:21 | PN ---
S CIWA - CIWA Score Nausea/Vomitin-Mild Nausea/No Vomiting Muscle Tremors: 3 Anxiety: 2 Agitation: 1-Slight > Activity Paroxysmal Sweats: 2 Orientation: 0-Oriented Tacttile Disturbances: 0-None Auditory Disturbances: 0-None Visual Disturbances: 1-Very Mild Sensitivity Headache: 2-Mild CIWA-Ar Total Score: 12 BHS Progress Note (SOAP) Subjective: 58 years old male admitted on 06/08/19 for alcohol withdrawal sx management treating with valium detox regiment less anxious but tremor and headaches feeling tired prefers to stay in bed today Objective: 06/09/19 09:21 Vital Signs Temperature 99.5 F 06/09/19 09:06 Pulse Rate 86 06/09/19 09:06 Respiratory Rate 18 06/09/19 09:06 Blood Pressure 132/92 06/09/19 09:06 O2 Sat by Pulse Oximetry (%) Laboratory Last Values WBC 6.7 K/mm3 (4.0-10.0) 06/08/19 15:30 RBC 5.34 M/mm3 (4.00-5.60) 06/08/19 15:30 Hgb 13.9 GM/dL (11.7-16.9) 06/08/19 15:30 Hct 42.6 % (35.4-49) 06/08/19 15:30 MCV 79.9 fl (80-96) L 06/08/19 15:30 MCH 26.1 pg (25.7-33.7) 06/08/19 15:30 MCHC 32.7 g/dl (32.0-35.9) 06/08/19 15:30 RDW 14.2 % (11.9-15.9) 06/08/19 15:30 Plt Count 319 K/MM3 (134-434) D 06/08/19 15:30 MPV 8.7 fl (7.5-11.1) 06/08/19 15:30 Sodium 138 mmol/L (136-145) 06/08/19 15:30 Potassium 3.8 mmol/L (3.5-5.1) 06/08/19 15:30 Chloride 105 mmol/L (98-107) 06/08/19 15:30 Carbon Dioxide 24 mmol/L (21-32) 06/08/19 15:30 Anion Gap 8 MMOL/L (8-16) 06/08/19 15:30 BUN 9.9 mg/dL (7-18) 06/08/19 15:30 Creatinine 1.1 mg/dL (0.55-1.3) 06/08/19 15:30 Est GFR (CKD-EPI)AfAm 86.52 06/08/19 15:30 Est GFR (CKD-EPI)NonAf 74.65 06/08/19 15:30 Random Glucose 91 mg/dL (74-106) 06/08/19 15:30 Calcium 8.6 mg/dL (8.5-10.1) 06/08/19 15:30 Total Bilirubin 0.5 mg/dL (0.2-1) 06/08/19 15:30 AST 18 U/L (15-37) 06/08/19 15:30 ALT 39 U/L (13-61) 06/08/19 15:30 Alkaline Phosphatase 101 U/L (45-117) 06/08/19 15:30 Total Protein 8.5 g/dl (6.4-8.2) H 06/08/19 15:30 Albumin 4.2 g/dl (3.4-5.0) 06/08/19 15:30 lab noted Assessment: 06/09/19 09:21 alcohol withdrawal Plan: valium regimen
[2019-06-09] MEDS: ASPIRIN COATED 81 MG TABLET.EC PO SCH (10:12)
[2019-06-09] MEDS: PRENATAL VITAMINS W/ FOLIC ACID TABLET (FP) PO SCH (10:12)
[2019-06-09] MEDS ORDERED: FLU VACCINE QUAD 60 MCG/0.5 ML (MDV 19-20) IM ONE (12:00)
[2019-06-09] MEDS ORDERED: PNEUMOC 13-VAL CONJ-DIP CRM/PF 0.5 ML DISP.SYRIN IM ONE (12:00)
--- NOTE | 2019-06-09 15:17 | CONSULT ---
[facility] Psychiatric Consult - Data Date of interview: 06/09/19 Admission source: [facility] Identifying data: Revisit to [facility] and admission to [address] [place] [address] for this 58 y/o AA male self-referred for detoxification treatment. JONY issues : alcohol, cocaine (crack). Patient is , a father of four, domiciled, unemployed and supported on welfare. Substance Abuse History: Discussed with the patient. Details in current [facility] report as follows : Smoking history: Former smoker. Have you smoked in the past 12 months: No. Aproximately how many cigarettes per day: 0. If you are a former smoker, when did you quit?: 2010. Cigars Per Day: 0. Hx Chewing Tobacco Use: No. Initiated information on smoking cessation: No. - Substances abused. Alcohol. Substance route: Oral. Frequency: Daily. Amount used: beer- 2-4 40oz bts/ 2 pts vodka. Age of first use: 19. Date of last use: 06/08. Crack. Substance route: Smoking. Frequency: Daily. Amount used: $ 100. Age of first use: 27. Date of last use: 06/03/19 Medical History: Medical profile is remarkable for history of cluster headaches , osteoarthritis of left knee, past treatment for syphilis (1980), bilateral inguinal herniorraphy (1989) and orthosurgery for torn meniscus of left knee ( 1989). Psychiatric History: Patient endorses a history of multiple psychiatric hospitalizations ([facility], [facility], [facility], [facility]). Most recent hospitalization occurred in January 2019. Mr Les mcdaniel reports the diagnosis of Bipolar Disorder. Patient is currently followed at [facility] program (Dr Spann) in the [place]. He is prescribed lithium, trintellix, wellbutrin and seroquel. He admits to non-adherence for past three weeks. Distant history of suicide attempts (wrist-cutting 10 years ago + overdose with medications at the of mother 20 years ago). Physical/Sexual Abuse/Trauma History: Patient denies history of abuse. Additional Comment: Urine drug screen results: RONNIE-Cocaine. Noted. Mental Status Exam - Mental Status Exam Alert and Oriented to: Time, Place, Person Cognitive Function: Good Patient Appearance: Well Groomed Mood: Withdrawn, Hopeful Affect: Appropriate, Normal Range Patient Behavior: Fatigued, Appropriate, Cooperative Speech Pattern: Clear, Appropriate Voice Loudness: Normal Thought Process: Goal Oriented Thought Disorder: Not Present Hallucinations: Denies Suicidal Ideation: Denies Homicidal Ideation: Denies Insight/Judgement: Poor Sleep: Poorly, Difficulty falling asleep Appetite: Good Gait/Station: Normal Psychiatric Findings - Problem List ([place] 1, 2,3) (1) Alcohol dependence with uncomplicated withdrawal Current Visit: Yes Status: Acute (2) Cocaine use disorder Current Visit: Yes Status: Chronic (3) Substance induced mood disorder Current Visit: Yes Status: Chronic (4) History of bipolar disorder Current Visit: Yes Status: Chronic Comment: As per self-report and records. Non adherent to medications. (5) Insomnia Current Visit: Yes Status: Chronic (6) Non-compliance Current Visit: Yes Status: Chronic - Initial Treatment Plan Initial Treatment Plan: Psychoeducation. Sleep hygiene. Detoxification. In view of this patient's admission of non-compliance with medications for past three weeks, will resume only seroquel 100 mg po hs. Side effects/benefits discussed with patient. [place] level and TFTS requested. AA meetings. Groups. Patient is in agreement with this plan of care. Gave verbal consent to MD. Observation. Spoke to pharmacist (Donna Salmeron) at [phone] : most recent refills were issued on 05/28/2019 for lithium 300 mg/qid + wellbutrin XL 150 mg/300 mg daily + seroquel 200 mg/hs + lexapro 20 mg/day.
[2019-06-09] MEDS: QUEtiapine FUMARATE 100 MG TABLET (FP) PO SCH (22:13)
[2019-06-09] MEDS: THIAMINE HCL 100 MG TABLET (FP) PO SCH (22:13)
[2019-06-09] MEDS: MELATONIN 5 MG TABLETS PO PRN (22:13)
[2019-06-09] MEDS: METHOCARBAMOL 500 MG TABLET PO PRN (22:14)
[2019-06-10] MEDS: diazePAM 5 MG TABLET PO SCH ×2 (05:15→18:13)
--- NOTE | 2019-06-10 09:38 | PN ---
S CIWA - CIWA Score Nausea/Vomitin-No Nausea/No Vomiting Muscle Tremors: 2 Anxiety: 3 Agitation: 1-Slight > Activity Paroxysmal Sweats: 2 Orientation: 0-Oriented Tacttile Disturbances: 0-None Auditory Disturbances: 0-None Visual Disturbances: 0-None Headache: 0-None Present CIWA-Ar Total Score: 8 BHS Progress Note (SOAP) Subjective: 58 years old male admitted on 06/08/19 for alcohol withdrawal sx management treating with valium detox regiment feeling better today less tremor slept through the night patient is motivated to maintain sober discussed aftercare with staff Objective: 06/10/19 09:39 Vital Signs Temperature 97.1 F L 06/10/19 09:12 Pulse Rate 75 06/10/19 09:12 Respiratory Rate 19 06/10/19 09:12 Blood Pressure 143/91 06/10/19 09:12 O2 Sat by Pulse Oximetry (%) Laboratory Last Values WBC 6.7 K/mm3 (4.0-10.0) 06/08/19 15:30 RBC 5.34 M/mm3 (4.00-5.60) 06/08/19 15:30 Hgb 13.9 GM/dL (11.7-16.9) 06/08/19 15:30 Hct 42.6 % (35.4-49) 06/08/19 15:30 MCV 79.9 fl (80-96) L 06/08/19 15:30 MCH 26.1 pg (25.7-33.7) 06/08/19 15:30 MCHC 32.7 g/dl (32.0-35.9) 06/08/19 15:30 RDW 14.2 % (11.9-15.9) 06/08/19 15:30 Plt Count 319 K/MM3 (134-434) D 06/08/19 15:30 MPV 8.7 fl (7.5-11.1) 06/08/19 15:30 Sodium 138 mmol/L (136-145) 06/08/19 15:30 Potassium 3.8 mmol/L (3.5-5.1) 06/08/19 15:30 Chloride 105 mmol/L (98-107) 06/08/19 15:30 Carbon Dioxide 24 mmol/L (21-32) 06/08/19 15:30 Anion Gap 8 MMOL/L (8-16) 06/08/19 15:30 BUN 9.9 mg/dL (7-18) 06/08/19 15:30 Creatinine 1.1 mg/dL (0.55-1.3) 06/08/19 15:30 Est GFR (CKD-EPI)AfAm 86.52 06/08/19 15:30 Est GFR (CKD-EPI)NonAf 74.65 06/08/19 15:30 Random Glucose 91 mg/dL (74-106) 06/08/19 15:30 Calcium 8.6 mg/dL (8.5-10.1) 06/08/19 15:30 Total Bilirubin 0.5 mg/dL (0.2-1) 06/08/19 15:30 AST 18 U/L (15-37) 06/08/19 15:30 ALT 39 U/L (13-61) 06/08/19 15:30 Alkaline Phosphatase 101 U/L (45-117) 06/08/19 15:30 Total Protein 8.5 g/dl (6.4-8.2) H 06/08/19 15:30 Albumin 4.2 g/dl (3.4-5.0) 06/08/19 15:30 lab noted 06/10/19 09:40 denies medical issue of hypertension clonidine 0.1 mg po q6h prn Assessment: 06/10/19 09:42 alcohol withdrawal Plan: valium regimen
[2019-06-10] MEDS ORDERED: cloNIDine HCL 0.1 MG TABLET PO PRN (09:41)
[2019-06-10] MEDS: PRENATAL VITAMINS W/ FOLIC ACID TABLET (FP) PO SCH (10:02)
[2019-06-10] MEDS: ASPIRIN COATED 81 MG TABLET.EC PO SCH (10:02)
[2019-06-10] MEDS: THIAMINE HCL 100 MG TABLET (FP) PO SCH (22:09)
[2019-06-10] MEDS: MELATONIN 5 MG TABLETS PO PRN (22:09)
[2019-06-10] MEDS: QUEtiapine FUMARATE 100 MG TABLET (FP) PO SCH (22:09)
[2019-06-10] MEDS: METHOCARBAMOL 500 MG TABLET PO PRN (22:10)
[2019-06-11] MEDS ORDERED: diazePAM 5 MG TABLET PO ONE (06:00)
[2019-06-11 06:42] VITALS: BP 127/81; PULSE 70; TEMP 97.8
--- NOTE | 2019-06-11 10:12 | DS ---
[facility] Detox Discharge Summary Admission Date: 06/08/19 Discharge Date: 06/11/19 - History Present History: Alcohol Dependence, Cocaine Dependence Additional Comments: Patient is a 58 years old male admitted on 06/08/19 for alcohol withdrawal sx management treating with Valium detox protocol, tolerated detox well medically stable, reports significant decrease in withdrawal symptoms. Patient occurred no complications during his stay. Patient was evaluated by psychiatry for reports dx of bipolar d/o deemed psychiatrically stable to continue treatment. Patient to follow up with [facility] (Dr Spann) . Patient to follow p with after care at [facility]. If worsening symptoms are present patient to seek medical attention or call 911. - Physical Exam Results Vital Signs: Vital Signs Temperature 97.8 F 06/11/19 06:42 Pulse Rate 70 06/11/19 06:42 Respiratory Rate 18 06/11/19 06:42 Blood Pressure 127/81 06/11/19 06:42 O2 Sat by Pulse Oximetry (%) Pertinent Admission Physical Exam Findings: PMHX: bipolar d/o PE: Patient AOx3 no acute distress no SI/HI EENT WNL No adventitious breath sounds full ROM no gait disturbance Vital Signs Temperature 97.8 F 06/11/19 06:42 Pulse Rate 70 06/11/19 06:42 Respiratory Rate 18 06/11/19 06:42 Blood Pressure 127/81 06/11/19 06:42 O2 Sat by Pulse Oximetry (%) Laboratory Last Values WBC 6.7 K/mm3 (4.0-10.0) 06/08/19 15:30 RBC 5.34 M/mm3 (4.00-5.60) 06/08/19 15:30 Hgb 13.9 GM/dL (11.7-16.9) 06/08/19 15:30 Hct 42.6 % (35.4-49) 06/08/19 15:30 MCV 79.9 fl (80-96) L 06/08/19 15:30 MCH 26.1 pg (25.7-33.7) 06/08/19 15:30 MCHC 32.7 g/dl (32.0-35.9) 06/08/19 15:30 RDW 14.2 % (11.9-15.9) 06/08/19 15:30 Plt Count 319 K/MM3 (134-434) D 06/08/19 15:30 MPV 8.7 fl (7.5-11.1) 06/08/19 15:30 Sodium 138 mmol/L (136-145) 06/08/19 15:30 Potassium 3.8 mmol/L (3.5-5.1) 06/08/19 15:30 Chloride 105 mmol/L (98-107) 06/08/19 15:30 Carbon Dioxide 24 mmol/L (21-32) 06/08/19 15:30 Anion Gap 8 MMOL/L (8-16) 06/08/19 15:30 BUN 9.9 mg/dL (7-18) 06/08/19 15:30 Creatinine 1.1 mg/dL (0.55-1.3) 06/08/19 15:30 Est GFR (CKD-EPI)AfAm 86.52 06/08/19 15:30 Est GFR (CKD-EPI)NonAf 74.65 06/08/19 15:30 Random Glucose 91 mg/dL (74-106) 06/08/19 15:30 Calcium 8.6 mg/dL (8.5-10.1) 06/08/19 15:30 Total Bilirubin 0.5 mg/dL (0.2-1) 06/08/19 15:30 AST 18 U/L (15-37) 06/08/19 15:30 ALT 39 U/L (13-61) 06/08/19 15:30 Alkaline Phosphatase 101 U/L (45-117) 06/08/19 15:30 Total Protein 8.5 g/dl (6.4-8.2) H 06/08/19 15:30 Albumin 4.2 g/dl (3.4-5.0) 06/08/19 15:30 Free T4 1.02 ng/dL (0.82-1.77) 06/10/19 08:00 Total T3 104.00 ng/dl (71-180) 06/10/19 08:00 Excello 0 MEQ/L (0.6-1.2) L 06/10/19 08:00 - Treatment Hospital Course: Detox Protocol Followed, Detoxed Safely, Responded well, Discharged Condition Good, Rehab Referral Accepted Patient has Accepted a Rehab Referral to: [facility] - Medication Discharge Medications: Ambulatory Orders Sumatriptan Succinate [Imitrex -] 50 mg PO DAILY PRN 10/26/17 Bupropion HCl [Bupropion Xl] 300 mg PO DAILY 06/08/19 Excello Carbonate [Eskalith -] 1,200 mg PO DAILY 06/08/19 Quetiapine Fumarate [Seroquel -] 200 mg PO HS 06/08/19 Vortioxetine Hydrobromide [Trintellix] 10 mg PO DAILY 06/08/19 - Diagnosis (1) Alcohol dependence with uncomplicated withdrawal Status: Acute (2) Crack cocaine use Status: Acute (3) Bipolar disorder Status: Chronic (4) Non-compliance Status: Chronic (5) Osteoarthritis of both knees Status: Chronic - AMA Did Patient Leave Against Medical Advice: No
[2019-06-11] MEDS: ASPIRIN COATED 81 MG TABLET.EC PO SCH (10:19)
[2019-06-11] MEDS: PRENATAL VITAMINS W/ FOLIC ACID TABLET (FP) PO SCH (10:19)
== END 2019-06-11 10:21 | disposition home or self-care (01) | DRG 897 ==
LOC: YASAS 12:17 → Y3N 15:39
PROVIDERS: ADMIT Allergy & Immunology; ATTEND Allergy & Immunology
PROC: HZ2ZZZZ Detoxification Services for Substance Abuse Treatment (ICD-10-PCS; principal; 2019-06-08)
DX: F10.230 Alcohol dependence with withdrawal, uncomplicated (principal); F14.20 Cocaine dependence, uncomplicated; F19.24 Other psychoactive substance dependence with psychoactive substance-induced mood disorder; F31.9 Bipolar disorder, unspecified; G47.00 Insomnia, unspecified; M17.0 Bilateral primary osteoarthritis of knee; R03.0 Elevated blood-pressure reading, without diagnosis of hypertension; Z87.891 Personal history of nicotine dependence; Z91.19 Patient's noncompliance with other medical treatment and regimen
CPT/HCPCS: 36415; 80053; 80178; 84439; 84480; 85027; G0008; Q2036